=== PATIENT | male | born 1970 | race Caucasian/White ===

== ENCOUNTER 2023-05-16 12:56 | Outpatient (OUT) | payer BC, SELFPAY ==
--- NOTE | 2023-05-16 | XR_ITS ---
The [address] [address] Patient Name: RAMIRO BRUNO MRN: [id number] date: 1970 Sex: M Assigned Patient Location: [facility] Current Patient Location: [facility] Accession/Order Number: [id number] Exam Date: 05/16/2023 13:02 Report Date: 05/16/2023 13:41 At the request of: TERRY RANDLE Procedure: XR foot LT min 3V PROCEDURE: XR foot LT min 3V COMPARISON: None. HISTORY: LEFT FOOT PAIN FINDINGS: BONES:No acute fracture or dislocation. Mild plantar enthesopathic spurring of the calcaneus. SOFT TISSUES:Negative. No visible soft tissue swelling. EFFUSION:None visible. OTHER: Negative. XR/XR foot LT min 3V IMPRESSION: Mild plantar enthesopathic spurring of the calcaneus Electronically authenticated by: DALE LANCASTER Date: 05/16/2023 13:41
== END 2023-05-16 12:57 | disposition home or self-care (01) ==
LOC: RAD 13:00
PROVIDERS: Visit Provider Podiatrist Foot & Ankle Surgery
DX: M79.672 Pain in left foot (principal)
CPT/HCPCS: 73630

== ENCOUNTER 2023-05-22 15:31 | Outpatient (OUT) | payer BC, SELFPAY ==
--- NOTE | 2023-05-22 15:36 | MR_ITS ---
The [place] [id number] Patient Name: RAMIRO BRUNO MRN: [id number] date: 1970 Sex: M Assigned Patient Location: MRI Current Patient Location: MRI Accession/Order Number: [id number] Exam Date: 05/22/2023 15:48 Report Date: 05/22/2023 17:50 At the request of: TERRY RANDLE Procedure: MR ankle LT wo con MR ankle LT wo con, 05/22/2023 3:48 PM EST INDICATION: Achilles Tendonitis COMPARISON: There is no appropriate prior study for comparison. TECHNIQUE: Multiplanar and multisequential MR images of the left ankle were obtained without contrast . FINDINGS: Muscles and tendons: The flexor and extensor tendons and muscles are unremarkable. No abnormality of the peroneal tendons is noted. Achilles tendon is unremarkable. Bone: There is no bone marrow edema. No osseus lesion is noted. Sinus Tarsi: No abnormality of sinus Tarsi is noted. Plantar fascia: The plantar fascia is unremarkable. Ligaments: The deep and superficial portions of deltoid are unremarkable. The lateral ligaments are unremarkable. The visualized portion of Lisfranc ligament is unremarkable. There is normal intra-articular joint effusion. No soft tissue abnormality is noted. MR/MR ankle LT wo con IMPRESSION: No abnormality of the Achilles tendon. Unremarkable MRI of the left ankle. Electronically authenticated by: ION SUMMERS Date: 05/22/2023 17:50
== END 2023-05-22 15:32 | disposition home or self-care (01) ==
LOC: MRI 15:32
PROVIDERS: Visit Provider Podiatrist Foot & Ankle Surgery
DX: M76.62 Achilles tendinitis, left leg (principal)
CPT/HCPCS: 73721

== ENCOUNTER 2023-06-11 15:49 | Outpatient (RCR) | payer BC, SELFPAY | END 2023-07-15 08:00 | disposition home or self-care (01) | LOC: PT 15:49 | PROVIDERS: Visit Provider Podiatrist Foot & Ankle Surgery | DX: S86.012S Strain of left Achilles tendon, sequela (principal) | CPT/HCPCS: 20561; 97035; 97110; 97162 ==

== ENCOUNTER 2023-07-16 10:40 | Outpatient (RCR) | payer BC, SELFPAY | END 2023-07-20 16:55 | disposition home or self-care (01) | LOC: PT 10:40 | PROVIDERS: PCP Podiatrist Foot & Ankle Surgery; Visit Provider Podiatrist Foot & Ankle Surgery | DX: S86.012S Strain of left Achilles tendon, sequela (principal); M72.2 Plantar fascial fibromatosis | CPT/HCPCS: 20561; 97035 ==

== ENCOUNTER 2023-08-06 16:02 | Outpatient (OUT) | payer BC, SELFPAY ==
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
--- NOTE | 2023-08-06 16:42 | ECG_ITS ---
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
[2023-08-06 17:41] LABS: Anion Gap 9.9; BUN Creatinine Ratio 19.4; Calcium 9.3 mg/dL (8.5-10.1); Carbon Dioxide 31.6 mmol/L (21.0-32.0); Chloride 103 mmol/L (98-107); Estimated GFR (African America >60 (>=60); Estimated GFR (Non-African Ame >60 (>=60); Glucose 102 mg/dL (74-106); Potassium 3.5 mmol/L (3.5-5.1); Sodium 141 mmol/L (136-145)
== END 2023-08-06 16:03 | disposition home or self-care (01) ==
LOC: PST 16:03
PROVIDERS: PCP Family Medicine; Visit Provider Podiatrist Foot & Ankle Surgery
DX: Z01.810 Encounter for preprocedural cardiovascular examination (principal); Z01.812 Encounter for preprocedural laboratory examination; S86.012S Strain of left Achilles tendon, sequela; M77.32 Calcaneal spur, left foot
CPT/HCPCS: 36415; 80048; 93005

== ENCOUNTER 2023-08-20 08:58 | Day surgery (SDC) | payer BC, SELFPAY ==
[2023-08-06 16:24] VITALS: BP 134/82; PULSE 78; RESP 16; O2SAT 98; BMI 31.8
[2023-08-20] VITALS (12 sets, daily range): BP systolic 107–147; BP diastolic 49–97; PULSE 66–87; RESP 13–20; TEMP 36.3–36.5; O2SAT 90–99
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
[2023-08-20 09:11] LABS: Basophils Percent Auto 0.4 % (0.2-2.0); Eosinophils Absolute Auto 0.1 10^3/uL (0.0-0.7); Eosinophils Percent Auto 1.1 % (0.9-7.0); Hematocrit 39.8 % (42.0-54.0); Hemoglobin 13.4 g/dL (14.0-18.0); Immature Granulocytes Abs Auto 0.01 10^3/uL (0.00-0.03); Immature Granulocytes Pct Auto 0.2 % (0.0-0.5); Lymphocytes Absolute Auto 1.7 10^3/uL (1.2-3.8); Lymphocytes Percent Auto 30.7 % (20.5-60.0); Mean Corpuscular HGB Conc 33.7 g/dL (29.9-35.2); Mean Corpuscular Hemoglobin 31.4 pg (25.9-34.0); Mean Corpuscular Volume 93.2 fL (80.0-94.0); Mean Platelet Volume 9.1 fL (9.5-13.5); Monocytes Absolute Auto 0.5 10^3/uL (0.3-0.8); Monocytes Percent Auto 8.3 % (1.7-12.0); Neutrophils Absolute Auto 3.3 10^3/uL (1.4-6.5); Neutrophils Percent Auto 59.3 % (43.0-75.0); Platelet Count 273 10^3/uL (150-450); Red Blood Count 4.27 10^6/uL (4.70-6.10); Red Cell Distribution Width 13.2 % (11.0-15.0); White Blood Count 5.5 10^3/uL (4.0-11.0)
[2023-08-20] MEDS: CELECOXIB 200 MG CAPSULE PO (09:27)
[2023-08-20] MEDS: FAMOTIDINE 20 MG TABLET PO (09:27)
[2023-08-20] MEDS: PREGABALIN 75 MG CAPSULE PO (09:28)
[2023-08-20] MEDS: ACETAMINOPHEN 500 MG TABLET 1000 MG PO (09:28)
[2023-08-20 09:29] LABS: Glucometer 105 mg/dL (74-106)
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
[2023-08-20] MEDS: LACTATED RINGER'S SOLUTION 1,000 ML 50 ML IV ×2 (10:05→11:25)
[2023-08-20] MEDS: CEFAZOLIN SODIUM/DEXTROSE,ISO 2 GM/50 ML PIGGYBACK IV (10:27)
--- NOTE | 2023-08-20 10:42 | PC.NURSE ---
Lying on right side during procedure and tolerated well after being medicated with Versed by Dr. Faria; pt's present at all times due to pt's history of PTSD
--- NOTE | 2023-08-20 11:47 | XR_ITS ---
The [address] [address] Patient Name: RAMIRO BRUNO MRN: [id number] date: 1970 Sex: M Assigned Patient Location: [facility] Current Patient Location: Accession/Order Number: [id number] Exam Date: 08/20/2023 12:50 Report Date: 08/21/2023 10:52 At the request of: MARLEN THAO Procedure: XR ankle LT min 3V PROCEDURE: XR ankle LT min 3V HISTORY: Postop x-ray PACU COMPARISON: XR foot left 05/16/2023 FINDINGS: BONES:Postop resection of posterior superior margin of calcaneus for Achilles tendon repair. Small calcaneal plantar spur. SOFT TISSUES:Images were obtained to cast material which limits evaluation. EFFUSION:None visible. OTHER: Negative. XR/XR ankle LT min 3V IMPRESSION: 1. Postop Achilles tendon repair. Electronically authenticated by: CIARA CROOK Date: 08/21/2023 10:52
[2023-08-20 12:44] LABS: Glucometer 110 mg/dL (74-106)
[2023-08-20] MEDS: PROMETHAZINE HCL 25 MG TABLET PO (13:25)
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
== END 2023-08-20 14:20 | disposition home or self-care (01) ==
PROVIDERS: PCP Family Medicine; Visit Provider Podiatrist Foot & Ankle Surgery
PROC: (CPT 1464; principal; 2023-08-20 10:05)
DX: S86.012S Strain of left Achilles tendon, sequela (principal); M77.32 Calcaneal spur, left foot; M72.2 Plantar fascial fibromatosis; M76.62 Achilles tendinitis, left leg; M21.862 Other specified acquired deformities of left lower leg; M19.90 Unspecified osteoarthritis, unspecified site; I10 Essential (primary) hypertension; Z79.899 Other long term (current) drug therapy; Z90.49 Acquired absence of other specified parts of digestive tract
CPT/HCPCS: 27650; 28118; 29893; 36415; 64445; 73610; 82948; 85025; 88305; 88311; C1713; J1094; J1170; J2704

== ENCOUNTER 2023-08-23 13:05 | Outpatient (OUT) | payer BC, SELFPAY ==
--- NOTE | 2023-08-23 | XR_ITS ---
The [address] [address] Patient Name: RAMIRO BRUNO MRN: [id number] date: 1970 Sex: M Assigned Patient Location: RAD Current Patient Location: [facility] Accession/Order Number: [id number] Exam Date: 08/23/2023 13:23 Report Date: 08/23/2023 13:54 At the request of: NOLAN CORONA Procedure: XR ankle LT min 3V PROCEDURE: XR ankle LT min 3V COMPARISON: 08/20/2023 HISTORY: LEFT ANKLE PAIN FINDINGS: BONES:Contour deformity of the posterior calcaneus consistent with partial resection and Achilles tendon repair. SOFT TISSUES:Posterior soft tissue swelling and heterotopic ossification EFFUSION:None visible. OTHER: Negative. XR/XR ankle LT min 3V IMPRESSION: Stable postsurgical changes from Achilles tendon repair Electronically authenticated by: DALE LANCASTER Date: 08/23/2023 13:54
--- OUTSIDE RECORDS SUMMARY | 2023-08-23 13:09 | XMS_ITS | CCD ---
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 Name Role Phone MARKEL [phone] UNKNOWN Unavailable Unavailable NADERER, MARKEL~[id number] UNKNOWN Unavailable Unavailable NADERER, MARKEL~[phone] UNKNOWN Unavailable Unavailable NADERER, MARKEL~[phone] UNKNOWN Unavailable Unavailable Robles Becker Unavailable Unavailable Ky Campbell Unavailable Unavailable NADERER, MARKEL~[phone] UNKNOWN Unavailable RADHA Marie Attending Robin casanova UNKNOWN Primary Care Unavailable Yaneth Horton Unavailable Gianluca Gonzales Unavailable JALEESA, DR MARKEL Sharpe Primary Care Unavailable ELZA, DR CHUCK Geiger Admitting Unavailreymundo BERTRAND, DR CHUCK Geiger Attending Unavailreymundo GAONA, DR CURIEL Consulting Unavailable Mil Magana Consulting Unavailable JALEESA, DR MARKEL Sharpe Admitting Unavailable JALEESA, DR MARKEL Sharpe Attending Unavailable JALEESA, DR MARKEL Sharpe Primary Care Unavailable AMBREEN, DR CIARA Ragland Consulting Unavailable JALEESA, DR MARKEL Sharpe Consulting Unavailable FIONA Magaña Attending Provider Demetri Magaña Attending Unavailable Demetri Magaña Admitting Unavailable Allergies Allergy Classification Reported Allergen(s) Allergy Type Date of Onset Reaction(s) Facility (6 sources) Sulfamethoxazole / Trimethoprim Drug Allergy rash [place] Other Medications Current Medications Medication Drug Class(es) Dates Sig (Normalized) Sig (Original) acetaminophen 325 mg / oxyCODONE hydrochloride 5 mg oral tablet (2 sources) Opioid Agonist Start: 08-11-2021 take 1 tablet by mouth every four hours as needed for pain Percocet 5-325 MG 1 tablet as needed for pain Orally up to every 4 hrs for 5 days Jul, Active doxazosin 8 mg oral tablet (7 sources) alpha-Adrenergic Sony Start: 08-10-2021 take 8 mg by mouth once daily at bedtime Doxazosin Active 8 MG PO Daily at bedtime August 10, 2021 12:00am Doxazosin Mesyla te Active finasteride 5 mg oral tablet (1 source) 5-alpha Reductase Inhibitor Start: 08-10-2021 take 5 mg by mouth once daily at bedtime Finasteride Active 5 MG PO Daily at bedtime August 10, 2021 12:00am hydroCHLOROthiazide 12.5 mg / losartan potassium 50 mg oral tablet (1 source) Thiazide Diuretic, Angiotensin 2 Receptor Sony Start: 08-10-2021 take 1 tablet by mouth once daily in the morning Losartan-Hydroch lorothiazide Active 1 TAB PO Every morning August 10, 2021 12:00am lidocaine 0.05 mg/mg medicated patch (1 source) Antiarrhythmic, Amide Local Anesthetic Start: 08-10-2021 apply 1 dose topically once daily Lidocaine Active 3 PATCH TOPICAL Daily August 10, 2021 12:00am losartin (6 sources) losartin HTZ Active losartin Active meclizine hydrochloride 25 mg oral tablet (1 source) Antiemetic Start: 08-10-2021 take 25 mg by mouth once daily Meclizine Active 25 MG PO Daily August 10, 2021 12:00am morphine sulfate 15 mg oral tablet (1 source) Opioid Agonist Start: 08-10-2021 take 15 mg by mouth four times daily Morphine Active 15 MG PO Four times daily August 10, 2021 12:00am oxaprozin 600 mg oral tablet (2 sources) Nonsteroidal Anti-inflammatory Drug Start: 08-10-2021 take 600 mg by mouth twice daily Oxaprozin Active 600 MG PO Twice daily August 10, 2021 12:00am Start: 08-10-2021 End: 08-10-2021 Oxaprozin Discontinued MG TA BLET August 10, 2021 12:00am August 10, 2021 9:21am Simvastatin (6 sources) HMG-CoA Reductase Inhibitor Simvastatin Active sucralfate 1000 mg oral tablet (1 source) Aluminum Complex Start: 08-10-19 take 1 g by mouth four times daily Sucralfate Active 1 GM PO Four times daily August 10, 2021 12:00am SUMAtriptan 100 mg oral tablet (1 source) Serotonin-1b and Serotonin-1d Receptor Agonist Start: 08-10-19 take 100 mg by mouth once daily Sumatriptan Succinate Active 100 MG PO Daily August 10, 2021 12:00am tadalafil 10 mg oral tablet (1 source) Phosphodiesterase 5 Inhibitor Start: 08-10-19 take 10 mg by mouth once daily Tadalafil Active 10 MG PO Daily August 10, 2021 12:00am tiZANidine 4 mg oral tablet (5 sources) Central alpha-2 Adrenergic Agonist Start: 08-10-19 take 4 mg by mouth once daily at bedtime Tizanidine Active 4 MG PO Daily at bedtime August 10, 2021 12:00am take 1 tablet by mouth every eig ht hours Zanaflex 4 MG 1 tablet as needed Orally Three times a day Active valACYclovir 1000 mg oral tablet (1 source) Herpesvirus Nucleoside Analog DNA Polymerase Inhibitor, Herpes Simplex Virus Nucleoside Analog DNA Polymerase Inhibitor, Herpes Zoster Virus Nucleoside Analog DNA Polymerase Inhibitor Start: 08-10-2021 take 1000 mg by mouth once daily Valacyclovir Active 1000 MG PO Daily August 10, 2021 12:00am Completed/Discontinued Medications Medication Drug Class(es) Dates Sig (Normalized) Sig (Original) cephalexin 500 mg oral capsule (2 sources) Cephalosporin Antibacterial Start: 08-11-2021 take 1 capsule by mouth every eight hours Cephalexin 500 MG 1 capsule Orally every 8 hrs for 2 days Jul, Not-Taking meloxicam (6 sources) Nonsteroidal Anti-inflammatory Drug Meloxicam Not-Taking Meloxicam Active Problems Active Problems Problem Classification Problem Date Documented Da te Episodic/Chronic Other connective tissue disease (1 source) [...] SCREEN MALIG NEOPLASM PROSTATE] Onset: 07-26-2022 Episodic Past or Other Problems Problem Classification Problem Date Documented Date Episodic/Chronic Immunizations and screening for infectious disease (1 source) Contact with and (suspected) exposure to other viral communicable diseases; Translations: [Contact with and (suspected) exposure to other viral communicable diseases Z20.828] Onset: 04-13-2021 Resolved: 04-13-2021 Episodic Other aftercare (1 source) Other correction (current) drug therapy; Translations: [OTH HALF-WAY CURRENT DRUG THERAPY] Onset: 08-02-2021 Episodic Other [...] 2022 Testosterone [Mass/Vol] 685 ng/dL Normal 264-916 [facility] Comment on above: Result Comment: Adul t male reference interval is based on a population of healthy nonobese males (BMI <30) between 19 and 39 years old. nayeli Mix.al. JCEM 2017,102;3950-6408. PMID: [id number]. Performed By: #### L IPID, BMP, LIVER, TSH #### [facility] [address] [place] [address] Dr. Jinny Whitfield CBC AUTO DIFFon 07-22-2022 BASO # 0.0 103/ul Normal 0.0-0.1 [facility] Comment on above: Performed By: #### C BC #### [facility] [address] [place] [address] Dr. Jinny Whitfield Basophils/100 WBC (Bld) 0.4 % Normal 0.2-2.0 [facility] Comment on above: Performed By: #### C BC #### [facility] [address] [place] [address] Dr. Jinny Whitfield EO # 0.0 103/ul Normal 0.0-0.7 [facility] Comment on above: Performed By: #### C BC #### [facility] [address] [place] [address] Dr. Jinny Whitfield Eosinophils/100 WBC (Bld) 0.5 % Critically low 0.9-7.0 [facility] Comment on above: Performed By: #### C BC #### [facility] [address] [place] [address] Dr. Jinny Whitfield Erythrocyte distribution width (RBC) [Ratio] 12.8 % Normal 11.0-15.0 [facility] Comment on above: Performed By: #### C BC #### [facility] [address] [place] [address] Dr. Jinny Whitfield Hematocrit (Bld) [Volume fraction] 36.5 % Critically low 42.0-54.0 [facility] Comment on above: Performed By: #### C BC #### [facility] [address] [place] [address] Dr. Jinny Whitfield Hemoglobin (Bld) [Mass/Vol] 13.3 g/dL Critically low 14.0-18.0 [facility] Comment on above: Performed By: #### C BC #### [facility] [address] [place] [address] Dr. Jinny Whitfield IG # 0.03 10e3/ul Normal 0.00-0.03 [facility] Comment on above: Performed By: #### C BC #### [facility] [address] [place] [address] Dr. Jinny Whitfield IG % 0.5 % Normal 0.0-0.5 [facility] Comment on above: Performed By: #### C BC #### [facility] [address] [place] [address] Dr. Jinny Whitfield LYMPH # 1.3 103/ul Normal 1.2-3.8 [facility] Comment on above: Performed By: #### C BC #### [facility] [address] [place] [address] Dr. Jinny Whitfield Lymphocytes/100 WBC (Bld) 22.3 % Normal 20.5-60.0 [facility] Comment on above: Performed By: #### C BC #### [facility] [address] [place] [address] Dr. Jinny Whitfield MANUAL DIFF REQ NO Normal [facility] Comment on above: Performed By: #### C BC #### [facility] [address] [place] [address] Dr. Jinny Whitfield MCH (RBC) [Entitic mass] 30.7 pg Normal 25.9-34.0 [facility] Comment on above: Performed By: #### C BC #### [facility] [address] [place] [address] Dr. Jinny Whitfield MCHC (RBC) [Mass/Vol] 36.4 g/dL Critically high 29.9-35.2 [facility] Comment on above: Performed By: #### C BC #### [facility] [address] [place] [address] Dr. Jinny Whitfield MCV (RBC) [Entitic vol] 84.3 fL Normal 80.0-94.0 [facility] Comment on above: Performed By: #### C BC #### [facility] [address] [place] [address] Dr. Jinny Whitfield MONO # 0.3 103/ul Normal 0.3-0.8 [facility] Comment on above: Performed By: #### C BC #### [facility] [address] [address] [address] Jinny Whitfield Monocytes/100 WBC (Bld) 5.9 % Normal 1.7-12.0 [facility] Comment on above: Performed By: #### C BC #### [facility] [address] [address] [address] Jinny Whitfield NEUT # 3.9 103/ul Normal 1.4-6.5 [facility] Comment on above: Performed By: #### C BC #### [facility] [address] [place] [address] Dr. Jinny Whitfield Neutrophils/100 WBC (Bld) 70.4 % Normal 43.0-75.0 [facility] Comment on above: Performed By: #### C BC #### [facility] [address] [place] [address] Dr. Jinny Whitfield Platelet mean volume (Bld) [Entitic vol] 8.8 fL Critically low 9.5-13.5 [facility] Comment on above: Performed By: #### C BC #### [facility] [address] [place] [address] Dr. Jinny Whitfield PLT 317 103/ul Normal 150-450 [facility] Comment on above: Performed By: #### C BC #### [facility] [address] [place] [address] Dr. Jinny Whitfield RBC 4.33 106/ul Critically low 4.70-6.10 [facility] Comment on above: Performed By: #### C BC #### [facility] [address] [place] [address] Dr. Jinny Whitfield WBC 5.6 103/ul Normal 4.0-11.0 [facility] Comment on above: Performed By: #### C BC #### [facility] [address] [place] [address] Dr. Jinny Whitfield GLYCOHEMOGLOBIN A1Con 2022 ADA RECOMMENDATION SEE BELOW Normal [facility] Comment on above: Result Comment: ADA RECOMMENDED LIMIT 4.0 - 6.0 ADA THERAPEUTIC TARGET < 7.0 ACTION SUGGESTED > 7.0 Performed By: #### A 1C #### [facility] [address] [address] [address] Jinny Whitfield Glucose [Mass/Vol] 117 mg/dL Normal [facility] Comment on above: Performed By: #### A 1C #### [facility] [address] [address] [address] Jinny Whitfield HbA1c (Bld) [Mass fraction] 5.7 % Normal 4.5-6.2 [facility] Comment on above: Performed By: #### A 1C #### [facility] [address] [place] [address] Dr. Jinny Whitfield LIPID PROFILEon 07-22-2022 CHOL-HDL RATIO NORM SEE BELOW Normal [facility] Comment on above: Result Comment: 3.3 - 4.4 LOW RISK 4.4 - 7.1 AVERAGE RISK 7.1 - 11.0 MODERATE RISK >11.0 HIGH RISK Performed By: #### L IPID, BMP, LIVER, TSH #### [facility] [address] [place] [address] Dr. Jinny Whitfield Cholesterol [Mass/Vol] 168 mg/dL Normal <=200 [facility] Comment on above: Performed By: #### L IPID, BMP, LIVER, TSH #### [facility] [address] [place] [address] Dr. iJnny Whitfield Cholesterol in HDL [Mass/Vol] 46 mg/dL Normal 40-60 [facility] Comment on above: Performed By: #### L IPID, BMP, LIVER, TSH #### [facility] [address] [address] [address] Jinny Whitfield Cholesterol in LDL [Mass/Vol] 102.8 mg/dL Normal [facility] Comment on above: Performed By: #### L IPID, BMP, LIVER, TSH #### [facility] [address] [address] [address] Jinny Whitfield Cholesterol.total/ Cholesterol in HDL [Mass ratio] 3.7 {ratio} Normal [facility] Comment on above: Performed By: #### L IPID, BMP, LIVER, TSH #### [facility] [address] [address] [address] Jinny Whitfield HDL NORMAL > or = 60 mg/dl - LO W CARDIOVASCULAR RISK <40 mg/dl - HIGH CARDIOVASCULAR RISK Normal [facility] Comment on above: Performed By: #### L IPID, BMP, LIVER, TSH #### [facility] [address] [address] [address] Jinny Whitfield LDL CALC NORMAL SEE BELOW Normal [facility] Comment on above: Result Comment: <100 mg/dl OPTIMAL 100 - 129 mg/dl NEAR OR ABOVE OPTIMAL 130 - 159 mg/dl BORDERLINE HIGH 160 - 189 mg/dl HIGH >190 mg/dl VERY HIGH Performed By: #### L IPID, BMP, LIVER, TSH #### [facility] [address] [address] [address] Jinny Whitfield Triglyceride [Mass/Vol] 96 mg/dL Normal <=150 [facility] Comment on above: Performed By: #### L IPID, BMP, LIVER, TSH #### [facility] [address] [address] [address] Jinny Whitfield VLDL CALC 19.2 mg/dL Normal [facility] Comment on above: Performed By: #### L IPID, BMP, LIVER, TSH #### [facility] [address] [address] [address] Jinny Whitfield LIVER PROFILEon 07-22-2022 Albumin [Mass/Vol] 4.2 g/dL Normal 3.4-5.0 [facility] Comment on above: Performed By: #### L IPID, BMP, LIVER, TSH #### [facility] [address] [address] [address] Jinny Whitfield Albumin/Globulin [Mass ratio] 1.2 {ratio} Normal [facility] Comment on above: Performed By: #### L IPID, BMP, LIVER, TSH #### [facility] [address] [address] [address] Jinny Whitfield ALP [Catalytic activity/Vol] 83 U/L Normal 46-116 [facility] Comment on above: Performed By: #### L IPID, BMP, LIVER, TSH #### [facility] [address] [address] [address] Jinny Whitfield ALT [Catalytic activity/Vol] 28 U/L Normal 16-63 [facility] Comment on above: Performed By: #### L IPID, BMP, LIVER, TSH #### [facility] [address] [address] [address] Jinny Whitfield AST [Catalytic activity/Vol] 24 U/L Normal 15-37 [facility] Comment on above: Performed By: #### L IPID, BMP, LIVER, TSH #### [facility] [address] [address] [address] Jinny Whitfield BILI, CONJUGATED 0.1 mg/dL Normal 0.0-0.[address] [facility] Comment on above: Performed By: #### L IPID, BMP, LIVER, TSH #### [facility] [address] [place] [address] Dr. Jinny Whitfield Bilirubin [Mass/Vol] 0.4 mg/dL Normal 0.2-1.0 [facility] Comment on above: Performed By: #### L IPID, BMP, LIVER, TSH #### [facility] [address] [address] [address] Jinny Whitfield Globulin (S) [Mass/Vol] 3.4 g/dL Normal [facility] Comment on above: Performed By: #### L IPID, BMP, LIVER, TSH #### [facility] [address] [address] [address] Jinny Whitfield Protein [Mass/Vol] 7.6 g/dL Normal 6.4-8.2 [facility] Comment on above: Performed By: #### L IPID, BMP, LIVER, TSH #### [facility] [address] [place] [address] Dr. Jinny Whitfield PROF CHEM 8 (BAS METB)on Anion gap [Moles/Vol] 11.7 mmol/L Normal [facility] Comment on above: Performed By: #### L IPID, BMP, LIVER, TSH #### [facility] [address] [address] [address] Jinny Whitfield Calcium [Mass/Vol] 8.9 mg/dL Normal 8.5-10.1 [facility] Comment on above: Performed By: #### L IPID, BMP, LIVER, TSH #### [facility] [address] [address] [address] Jinny Whitfield Chloride [Moles/Vol] 102 mmol/L Normal 98-107 [facility] Comment on above: Performed By: #### L IPID, BMP, LIVER, TSH #### [facility] [address] [address] [address] Jinny Whitfield CO2 [Moles/Vol] 30.2 mmol/L Normal 21.0-32.0 [facility] Comment on above: Performed By: #### L IPID, BMP, LIVER, TSH #### [facility] [address] [place] [address] Dr. Jinny Whitfield Creatinine [Mass/Vol] 0.86 mg/dL Normal 0.70-1.30 [facility] Comment on above: Performed By: #### L IPID, BMP, LIVER, TSH #### [facility] [address] [place] [address] Dr. Jinny Whitfield EGFR-AF SENEGALESE >60 Normal >=60 [facility] Comment on above: Performed By: #### L IPID, BMP, LIVER, TSH #### [facility] [address] [place] [address] Dr. Jinny Whitfield EGFR-NON AF SENEGALESE >60 Normal >=60 [facility] Comment on above: Performed By: #### L IPID, BMP, LIVER, TSH #### [facility] [address] [address] [address] Jinny Whitfield Glucose [Mass/Vol] 96 mg/dL Normal 74-106 [facility] Comment on above: Performed By: #### L IPID, BMP, LIVER, TSH #### [facility] [address] [address] [address] Jinny Whitfield Potassium [Moles/Vol] 3.9 mmol/L Normal 3.5-5.1 [facility] Comment on above: Performed By: #### L IPID, BMP, LIVER, TSH #### [facility] [address] [address] [address] Jinny Whitfield Sodium [Moles/Vol] 140 mmol/L Normal 136-145 [facility] Comment on above: Performed By: #### L IPID, BMP, LIVER, TSH #### [facility] [address] [address] [address] Jinny Whitfield Urea nitrogen [Mass/Vol] 18.0 mg/dL Normal 7.0-18.0 [facility] Comment on above: Performed By: #### L IPID, BMP, LIVER, TSH #### [facility] [address] [address] [address] Jinny Whitfield Urea nitrogen/Creatinin e [Mass ratio] 20.9 mg/mg Normal [facility] Comment on above: Performed By: #### L IPID, BMP, LIVER, TSH #### [facility] [address] [address] [address] Jinny Whitfield TSHon 07-22-2022 TSH 0.701 uIU/mL Normal 0.358-3.740 [facility] Comment on above: Performed By: #### L IPID, BMP, LIVER, TSH #### [facility] [address] [place] [address] Dr. Jinny Whitfield XR HUMERUS LT MIN 2Von 07-31 XR [...] MIL MAGANA Date: 2021-07-31 17:51 Normal [facility] COVID Quick Testingon 2020 Result Negative [place] Other Established Visit (Neurosurg kiran)on 08-09-2018 Established Visit (Neurosurgery) Chief Complaint Patient is being seen for a follow-up Neurosurgical visit. 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 Battery changed in November 2016 from [employer] to [employer], with initially some relief, but no longer. [...] Vital Signs Recorded: 09Aug2018 01:42PM Heart Rate79 Alythwoaldh57 Waqphetx959 Fgicstzvj75 Yauvdl204 lb BMI Kssmmatlhi34.59 BSA Calculated2.13 Physical Exam incisions well healed, [...] Patient Discussion/Summary 1) I discussed with Mr. William and his other treatment options including trial of a new lead, repositioning of the generator, reprogramming, however, Mr. William is not interested in any of these [...] Aug 09 2018 3:24PM EST (Author) Normal [facility] Coding Summary.on 12-20-2017 Coding Summary. 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 Hewas subsequently [facility] where he saw Dr. Cordova replaced the stimulator generator with a [employer] device. He notes thatthat switch worsened his symptoms as a result of the stimulator being lesseffective than it once was. He was subsequently referred to Dr. Aldrich todiscuss either ablative techniques versus other treatments and [...] and followup as needed.Robles Becker M.D.lkrDictated: 12/14/2017 #[id number]: 12/19/2017 #[id number]: Santos Campbell M.D.Robles Becker M.D. [facility] Comment on above: Result Comment: Elec tronically Signed By: Rosita CAPUTO, Robles Holliday\.br\Date and Time Signed: 12/20/17 16:22 EDT Coding Summary.on 05-22-2017 Coding Summary. CODING DATE: 017 FINAL [facility] STATUS: Home (Routine DC) PAYOR: Commercial Insurance [...] Kelsea Newton Date Saved: 05/22/2017 12:25 pm Normal [facility] [place] Mamm Diag w/CAD if perf [...] very important to your health. The current [employer] and [employer] [...] BI-RADS Category 1-Negative Recommendation: Normal interval follow-up [facility] US Breast Unilateral Rt Comp leteon 05-21-2017 INR Coag RelTime (Bld) Exam Date/Time:05/21/2017 14:19 ESTReason for Exam:Breast painReportPLEASE REFER TO THE MAMMOGRAM REPORT. FINAL REPORT Dictated: 05/21/2017 6:26 pm Ky Heath M.D. Signed (Electronic Signature): 05/21/2017 6:26 pm Signed by: Ky Heath M.D. Transcribed by: RAUL Technologist: DIONISIO [facility] Vital Signs Date Time Vital Sign Value Performing Clinician Facility 08-22-2021 14:30-0500 Body height 179.07 cm Gianluca Olexa Other [place] Other 08-22-2021 14:30-0500 Body mass index (BMI) [Ratio] 31.68 kg/m2 Gianluca Olexa Other [place] Other 08-22-2021 14:30-0500 Body weight 101.61 kg Gianluca Olexa Other [place] Other 08-09-2021 10:45-0500 Body height 179.07 cm Gianluca Olexa Other [facility] Other 08-09-2021 10:45-0500 Body mass index (BMI) [Ratio] 31.54 kg/m2 Gianluca Olexa Other [facility] Other 08-09-2021 10:45-0500 Body weight 101.15 kg Gianluca Olexa Other [facility] Other 08-02-2021 10:30-0500 Body height 179.07 cm Gianluca Olexa Other [facility] Other 08-02-2021 10:30-0500 Body mass index (BMI) [Ratio] 30.98 kg/m2 Gianluca Salazarxa Other [facility] Other 08-02-2021 10:30-0500 Body weight 99.34 kg Gianluca Olexa Other [facility] 05-01-2021 13:55-0400 Body height 179.07 cm Yaneth Sol Other [facility] Other 05-01-2021 13:55-0400 Body mass index (BMI) [Ratio] 30.98 kg/m2 Yaneth Sol Other [facility] Other 05-01-2021 13:55-0400 Body temperature 98.6 [degF] Yaneth Sol Other [facility] Other 05-01-2021 13:55-0400 Body weight 99.34 kg Yaneth Sol Other [facility] Other 05-01-2021 13:55-0400 Diastolic blood pressure 90 mm[Hg] Yaneth Sol Other [facility] Other 05-01-2021 13:55-0400 Respiratory rate 18 /min Yaneth Sol Other [facility] Other 05-01-2021 13:55-0400 SaO2% (BldA) [Mass fraction] 98 % Yaneth Sol Other [facility] 05-01-2021 13:55-0400 Systolic blood pressure 118 mm[Hg] Yaneth Sol Other [facility] 04-13-2021 11:15-0400 Body height 179.07 cm Yaneth Horton Other [facility] 04-13-2021 11:15-0400 Body mass index (BMI) [Ratio] 30.41 kg/m2 Yaneth Horton Other [facility] 04-13-2021 11:15-0400 Body temperature 99.3 [degF] Yaneth Horton Other [facility] Other 04-13-2021 11:15-0400 Body weight 97.52 kg Yaneth Horton Other [facility] Other 04-13-2021 11:15-0400 Respiratory rate 18 /min Yaneth Horton Other [facility] Other 04-13-2021 11:15-0400 SaO2% (BldA) [Mass fraction] 97 % Yaneth Horton Other [facility] Other Encounters Encounter Date Encounter Type Care Provider Facility Start: 08-20-2023 End: 08-20-2023 ambulatory Demetri Magaña Facility:[facility] Start: 08-20-2023 End: 08-20-2023 ambulatory DPM Demetri Magaña Work Phone: [facility] Work Phone: Start: 08-20-2023 End: 08-20-2023 Departed Referred DPM Demetri Magaña Work Phone: [facility] Start: 07-26-2022 Encounter for genera l adult medical examination without abnormal findings DR MARKEL LAZCANO [facility] Start: 07-22-2022 End: 07-23-[address] MARKEL LAZCANO Facility:[facility] Start: 07-22-2022 End: 07-23-2022 Encounter for general adult medical examination without abnormal findings DR MARKEL LAZCANO Facility:[facility] Start: 08-22-2021 End: 08-22-2021 ambulatory Gianluca Olexa Other [facility] Start: 08-22-2021 Postop follow up vis it related to original px Gianluca Olexa [facility] Start: 08-11-2021 End: 08-11-2021 ambulatory Gianluca Olexa Other [facility] Start: 08-11-2021 Telephone encounter Gianluca Olexa [facility] Start: 08-09-2021 End: 08-09-2021 ambulatory Gianluca Olexa Other [facility] Start: 08-09-2021 Encounter for other preprocedural examination Gianluca Olexa [facility] Start: 08-09-2021 Office outpatient vi sit 25 minutes Gianluca Olexa [facility] Start: 08-02-2021 End: 08-02-2021 ambulatory Gianluca Olexa Other [facility] Start: 08-02-2021 Office outpatient ne w 45 minutes Gianluca Olexa [facility] Start: 07-31-2021 End: 07-31-[address] MARKEL LAZCANO Facility: Start: 05-01-2021 Office outpatient vi sit 15 minutes Yaneth Horton [facility] Start: 04-13-2021 (URG) Urgent Care Visit Yaneth holliday [facility] Start: 08-09-2018 Patient encounter procedure RADHA FERRO Facility:[facility] Start: 08-09-2018 Encounter for other preprocedural examination RADHA FERRO [facility] Start: 12-14-2017 End: 12-15-2017 Ambulatory Robles Becker Facility:[facility] Start: 05-21-2017 End: 05-22-2017 Ambulatory [id number] EDUARDO LAZCANO Facility:[facility] Procedures Date Procedure Procedure Detail Performing Clinician Start: 07-22-[address] MARKEL OLIVERA Comment on above: Performed By: #### P [facility] #### [facility] [address] [address] [address] Jinny Whitfield Immunizations Immunization Date Immunization Notes Care Provider Elroy [email or web address] 06-21-2021 COVID-19 mRNA, Comirnaty (Pfizer) DPM Demetri Magaña Work Phone: [facility] 05-01-2021 Toradol per 15 mg Yaneth Dym ond Other [facility] Other 09-28-2020 COVID-19 mRNA, Comirnaty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
== END 2023-08-23 13:06 | disposition home or self-care (01) ==
LOC: RAD 13:06
PROVIDERS: PCP Family Medicine; Visit Provider Physician Assistant
DX: S86.012S Strain of left Achilles tendon, sequela (principal); Z98.890 Other specified postprocedural states
CPT/HCPCS: 73610

== ENCOUNTER 2023-09-29 10:10 | Outpatient (OUT) | payer BC, SELFPAY ==
--- OUTSIDE RECORDS SUMMARY | 2023-09-29 10:14 | XMS_ITS | CCD ---
Author Name Unknown Address [address] [place] [address] Organization [facility] Care Team Providers Care Table And Desk Finisher Name Role Phone MARKEL [phone] UNKNOWN Unavailable Unavailable NADERER, MARKEL~[phone] UNKNOWN Unavailable Unavailable NADERER, MAKREL~[phone] UNKNOWN Unavailable Unavailable NADERER, MARKEL~[phone] UNKNOWN Unavailable Unavailable Robles Becker Unavailable Unavailable Ky Campbell Unavailable Unavailable NADERER, MARKEL~[phone] UNKNOWN Unavailable RADHA Marie Attending Robin casanova [...] [employer] Unavailable FIONA Magaña Attending Provider [phone] Demetri Magaña Attending Unavailable Demetri Magaña Admitting Unavailable MARKEL LAZCANO Attending Unavailable Allergies Allergy Classification Reported Allergen(s) Allergy Type Date of Onset Reaction(s) Facility (6 sources) Sulfamethoxazole / Trimethoprim Drug Allergy rash [facility] Business [employer] Other (1 source) Sulfamethoxazole Drug Allergy 2 [facility] Repository (1 source) Trimethoprim Drug Allergy 2 [facility] Medications Current Medications Medication Drug Class(es) Dates [...] 04-13-2021 Episodic Other aftercare (1 source) 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; Translations: [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 DRUG THERAPY] Onset: 08-02-2021 Episodic Other [...] Test Name Value Interpretation Reference Range Facility [facility] 08-20-2023 L Specimen: [id number] Received: 08/21/23 Status: PALLAVI Zaman Num: [id number] Spec Type: Surgical Subm Dr: Demetri Magaña DPM, MS Tissues: A Bone Fragments - Other than Path Fracture (LT CALCANEAL SPUR) Procedures: HE, Gross/Micro L3, Decalcification Age/ Patient Sex Location Account Attending Physician Carlton Bruno Dell 52/M LABELL [id number] Demetri Magaña DPM, MS SPEC NUM: [id number] RECD: 08/21/23 STATUS: PALLAVI ZAMAN NUM: [id number] EDMAR: 08/20/[address]: Demetri Magaña DPM, MS ENTERED: 08/21/[address] [facility] [address]: Ene Greenberg SPEC TYPE: Surgical DEPT: KAR HOLLOWAY ORDERED: HE, Gross/Micro L3, Decalcification ORDERED: HE, Gross/Micro L3, Decalcification Pathological Diagnosis Left foot calcaneal bone, excision -Large irregular wedge segment of calcaneal bone showing mild changes of degenerative osteoarthritis per chronic compression or stretching effect of the calcaneal spur or exostosis, otherwise without any other significant or specific histopathological changes observed Clinical Information Strain of left Achilles tendon, calcaneal spur Gross Description Received in formalin labeled with the patient's name, date of and left calcaneal spur is a 4.0 x 2.7 x 2.2 cm aggregate of soriano-white bone and yellow-harris rubbery tissue. The bone fragments have smooth to shaggy, soriano-harris articular surfaces. The cut surface of the bone is yellow-soriano, trabecular. Shrinking Machine Operator are submitted following decalcification in one cassette labeled A1. CPT Codes 38620, 94215 Specimen: [id number] Received: 08/21/23 Status: PALLAVI Zaman Num: [id number] Spec Type: Surgical Subm Dr: Demetri Magaña,DPM, MS Tissues: A Bone Fragments - Other than Path Fracture (LT CALCANEAL SPUR) Procedures: HE, Gross/Micro L3, Decalcification Patient: Carlton Bruno [id number] (Continued) Signed (signature on file) Elle Whitfield MD 08/24/23 1611 [facility] TESTOSTERONE, TOTALon 2022 Testosterone [Mass/Vol] 685 ng/dL Normal 264-916 [facility] Comment on above: Result Comment: Adul t male reference interval is based on a population of healthy nonobese males (BMI <30) between 19 and 39 years old. Dominguez et.al. JCEM 2017,102;0396-4799. PMID: [id number]. Performed By: #### L IPID, BMP, LIVER, TSH #### [facility] [address] [place] [address] Dr. Jinny Whitfield CBC AUTO DIFFon 07-22-2022 BASO # 0.0 103/ul Normal 0.0-0.1 [facility] Comment on above: Performed By: #### C BC #### [facility] [address] [place] [address] Dr. Jinny Whitfield Basophils/100 WBC (Bld) 0.4 % Normal 0.2-2.0 [facility] Comment on above: Performed By: #### C BC #### [facility] [address] [place] [address] Dr. Jinny Whitfield EO # 0.0 103/ul Normal 0.0-0.7 [facility] Comment on above: Performed By: #### C BC #### [facility] [address] [place] [address] Dr. Jinny Whitfield Eosinophils/100 WBC (Bld) 0.5 % Critically low 0.9-7.0 [facility] Comment on above: Performed By: #### C BC #### [facility] [address] [place] [address] Dr. Jinny Whitfield Erythrocyte distribution width (RBC) [Ratio] 12.8 % Normal 11.0-15.0 [facility] Comment on above: Performed By: #### C BC #### [facility] [address] [place] [address] Dr. Jinny Whitfield Hematocrit (Bld) [Volume fraction] 36.5 % Critically low 42.0-54.0 [facility] Comment on above: Performed By: #### C BC #### [facility] [address] [place] [address] Dr. Jinny Whitfield Hemoglobin (Bld) [Mass/Vol] 13.3 g/dL Critically low 14.0-18.0 [facility] Comment on above: Performed By: #### C BC #### [facility] [address] [place] [address] Dr. Jinny Whitfield IG # 0.03 10e3/ul Normal 0.00-0.03 [facility] Comment on above: Performed By: #### C BC #### [facility] [address] [place] [address] Dr. Jinny Whitfield IG % 0.5 % Normal 0.0-0.5 [facility] Comment on above: Performed By: #### C BC #### [facility] [address] [place] [address] Dr. Jinny Whitfield LYMPH # 1.3 103/ul Normal 1.2-3.8 [facility] Comment on above: Performed By: #### C BC #### [facility] [address] [place] [address] Dr. Jinny Whitfield Lymphocytes/100 WBC (Bld) 22.3 % Normal 20.5-60.0 [facility] Comment on above: Performed By: #### C BC #### [facility] [address] [place] [address] Dr. Jinny Whitfield MANUAL DIFF REQ NO Normal [facility] Comment on above: Performed By: #### C BC #### [facility] [address] [place] [address] Dr. Jinny Whitfield MCH (RBC) [Entitic mass] 30.7 pg Normal 25.9-34.0 [facility] Comment on above: Performed By: #### C BC #### [facility] [address] [place] [address] Dr. Jinny Whitfield MCHC (RBC) [Mass/Vol] 36.4 g/dL Critically high 29.9-35.2 [facility] Comment on above: Performed By: #### C BC #### [facility] [address] [place] [address] Dr. Jinny Whitfield MCV (RBC) [Entitic vol] 84.3 fL Normal 80.0-94.0 [facility] Comment on above: Performed By: #### C BC #### [facility] [address] [place] [address] Dr. Jinny Whitfield MONO # 0.3 103/ul Normal 0.3-0.8 [facility] Comment on above: Performed By: #### C BC #### [facility] [address] [place] [address] Dr. Jinny Whitfield Monocytes/100 WBC (Bld) 5.9 % Normal 1.7-12.0 [facility] Comment on above: Performed By: #### C BC #### [facility] [address] [place] [address] Dr. Jinny Whitfield NEUT # 3.9 103/ul Normal 1.4-6.5 [facility] Comment on above: Performed By: #### C BC #### [facility] [address] [address] [address] Jinny Whitfield Neutrophils/100 WBC (Bld) 70.4 % Normal 43.0-75.0 [facility] Comment on above: Performed By: #### C BC #### [facility] [address] [place] [address] Dr. Jinny Whitfield Platelet mean volume (Bld) [Entitic vol] 8.8 fL Critically low 9.5-13.5 [facility] Comment on above: Performed By: #### C BC #### [facility] [address] [place] [address] Dr. Jinny Whitfield PLT 317 103/ul Normal 150-450 [facility] Comment on above: Performed By: #### C BC #### [facility] [address] [place] [address] Dr. Jinny Whitfield RBC 4.33 106/ul Critically low 4.70-6.10 [facility] Comment on above: Performed By: #### C BC #### [facility] [address] [place] [address] Dr. Jinny Whitfield WBC 5.6 103/ul Normal 4.0-11.0 [facility] Comment on above: Performed By: #### C BC #### [facility] [address] [place] [address] Dr. Jinny Whitfield GLYCOHEMOGLOBIN A1Con 2022 ADA RECOMMENDATION SEE BELOW Normal [facility] Comment on above: Result Comment: ADA RECOMMENDED LIMIT 4.0 - 6.0 ADA THERAPEUTIC TARGET < 7.0 ACTION SUGGESTED > 7.0 Performed By: #### A 1C #### [facility] [address] [place] [address] Dr. Jinny Whitfield Glucose [Mass/Vol] 117 mg/dL Normal [facility] Comment on above: Performed By: #### A 1C #### [facility] [address] [address] [address] Jinny Whitfield HbA1c (Bld) [Mass fraction] 5.7 % Normal 4.5-6.2 [facility] Comment on above: Performed By: #### A 1C #### [facility] [address] [address] [address] Jinny Whitfield LIPID PROFILEon 07-22-2022 CHOL-HDL RATIO NORM SEE BELOW Normal [facility] Comment on above: Result Comment: 3.3 - 4.4 LOW RISK 4.4 - 7.1 AVERAGE RISK 7.1 - 11.0 MODERATE RISK >11.0 HIGH RISK Performed By: #### L IPID, BMP, LIVER, TSH #### [facility] [address] [place] [address] Dr. Jinny Whitfield Cholesterol [Mass/Vol] 168 mg/dL Normal <=200 [facility] Comment on above: Performed By: #### L IPID, BMP, LIVER, TSH #### [facility] [address] [address] [address] Jinny Whitfield Cholesterol in HDL [Mass/Vol] 46 mg/dL Normal 40-60 [facility] Comment on above: Performed By: #### L IPID, BMP, LIVER, TSH #### [facility] [address] [address] [address] Jinny Whitfield Cholesterol in LDL [Mass/Vol] 102.8 mg/dL Normal [facility] Comment on above: Performed By: #### L IPID, BMP, LIVER, TSH #### [facility] [address] [address] [address] Jinny Whitfield Cholesterol.total/ Cholesterol in HDL [Mass ratio] 3.7 {ratio} Normal [facility] Comment on above: Performed By: #### L IPID, BMP, LIVER, TSH #### [facility] [address] [address] [address] Jinny Whitfield HDL NORMAL > or = 60 mg/dl - LO W CARDIOVASCULAR RISK <40 mg/dl - HIGH CARDIOVASCULAR RISK Normal [facility] Comment on above: Performed By: #### L IPID, BMP, LIVER, TSH #### [facility] [address] [address] [address] Jinny Whitfield LDL CALC NORMAL SEE BELOW Normal [facility] Comment on above: Result Comment: <100 mg/dl OPTIMAL 100 - 129 mg/dl NEAR OR ABOVE OPTIMAL 130 - 159 mg/dl BORDERLINE HIGH 160 - 189 mg/dl HIGH >190 mg/dl VERY HIGH Performed By: #### L IPID, BMP, LIVER, TSH #### [facility] [address] [address] [address] Jinny Whitfield Triglyceride [Mass/Vol] 96 mg/dL Normal <=150 [facility] Comment on above: Performed By: #### L IPID, BMP, LIVER, TSH #### [facility] [address] [address] [address] Jinny Whitfield VLDL CALC 19.2 mg/dL Normal [facility] Comment on above: Performed By: #### L IPID, BMP, LIVER, TSH #### [facility] [address] [address] [address] Jinny Whitfield LIVER PROFILEon 07-22-2022 Albumin [Mass/Vol] 4.2 g/dL Normal 3.4-5.0 [facility] Comment on above: Performed By: #### L IPID, BMP, LIVER, TSH #### [facility] [address] [address] [address] Jinny Whitfield Albumin/Globulin [Mass ratio] 1.2 {ratio} Normal [facility] Comment on above: Performed By: #### L IPID, BMP, LIVER, TSH #### [facility] [address] [address] [address] Jinny Whitfield ALP [Catalytic activity/Vol] 83 U/L Normal 46-116 [facility] Comment on above: Performed By: #### L IPID, BMP, LIVER, TSH #### [facility] [address] [address] [address] Jinny Whitfield ALT [Catalytic activity/Vol] 28 U/L Normal 16-63 [facility] Comment on above: Performed By: #### L IPID, BMP, LIVER, TSH #### [facility] [address] [address] [address] Jinny Whitfield AST [Catalytic activity/Vol] 24 U/L Normal 15-37 [facility] Comment on above: Performed By: #### L IPID, BMP, LIVER, TSH #### [facility] [address] [place] [address] Dr. Jinny Whitfield BILI, CONJUGATED 0.1 mg/dL Normal 0.0-0.2 [facility] Comment on above: Performed By: #### L IPID, BMP, LIVER, TSH #### [facility] [address] [place] [address] Dr. Jinny Whitfield Bilirubin [Mass/Vol] 0.4 mg/dL Normal 0.2-1.0 [facility] Comment on above: Performed By: #### L IPID, BMP, LIVER, TSH #### [facility] [address] [place] [address] Dr. Jinny Whitfield Globulin (S) [Mass/Vol] 3.4 g/dL Normal [facility] Comment on above: Performed By: #### L IPID, BMP, LIVER, TSH #### [facility] [address] [place] [address] Dr. Jinny Whitfield Protein [Mass/Vol] 7.6 g/dL Normal 6.4-8.2 [facility] Comment on above: Performed By: #### L IPID, BMP, LIVER, TSH #### [facility] [address] [place] [address] Dr. Jinny Whitfield PROF CHEM 8 (BAS METB)on Anion gap [Moles/Vol] 11.7 mmol/L Normal [facility] Comment on above: Performed By: #### L IPID, BMP, LIVER, TSH #### [facility] [address] [place] [address] Dr. Jinny Whitfield Calcium [Mass/Vol] 8.9 mg/dL Normal 8.5-10.1 [facility] Comment on above: Performed By: #### L IPID, BMP, LIVER, TSH #### [facility] [address] [address] [address] Jinny Whitfield Chloride [Moles/Vol] 102 mmol/L Normal 98-107 [facility] Comment on above: Performed By: #### L IPID, BMP, LIVER, TSH #### [facility] [address] [address] [address] Jinny Whitfield CO2 [Moles/Vol] 30.2 mmol/L Normal 21.0-32.0 [facility] Comment on above: Performed By: #### L IPID, BMP, LIVER, TSH #### [facility] [address] [place] [address] Dr. Jinny Whitfield Creatinine [Mass/Vol] 0.86 mg/dL Normal 0.70-1.30 [facility] Comment on above: Performed By: #### L IPID, BMP, LIVER, TSH #### [facility] [address] [place] [address] Dr. Jinny Whitfield EGFR-AF BELGIAN >60 Normal >=60 [facility] Comment on above: Performed By: #### L IPID, BMP, LIVER, TSH #### [facility] [address] [place] [address] Dr. Jinny Whitfield EGFR-NON AF BELGIAN >60 Normal >=60 [facility] Comment on above: Performed By: #### L IPID, BMP, LIVER, TSH #### [facility] [address] [place] [address] Dr. Jinny Whitfield Glucose [Mass/Vol] 96 mg/dL Normal 74-106 [facility] Comment on above: Performed By: #### L IPID, BMP, LIVER, TSH #### [facility] [address] [place] [address] Dr. Jinny Whitfield Potassium [Moles/Vol] 3.9 mmol/L Normal 3.5-5.1 [facility] Comment on above: Performed By: #### L IPID, BMP, LIVER, TSH #### [facility] [address] [place] [address] Dr. Jinny Whitfield Sodium [Moles/Vol] 140 mmol/L Normal 136-145 [facility] Comment on above: Performed By: #### L IPID, BMP, LIVER, TSH #### [facility] [address] [address] [address] Jinny Whitfield Urea nitrogen [Mass/Vol] 18.0 mg/dL Normal 7.0-18.0 [facility] Comment on above: Performed By: #### L IPID, BMP, LIVER, TSH #### [facility] [address] [address] [address] Jinny Whitfield Urea nitrogen/Creatinin e [Mass ratio] 20.9 mg/mg Normal [facility] Comment on above: Performed By: #### L IPID, BMP, LIVER, TSH #### [facility] [address] [address] [address] Jinny Whitfield TSHon 07-22-2022 TSH 0.701 uIU/mL Normal 0.358-3.740 [facility] Comment on above: Performed By: #### L IPID, BMP, LIVER, TSH #### [facility] [address] [address] [address] Jinny Whitfield XR HUMERUS LT MIN [...] MIL MAGANA Date: 2021-07-31 17:51 Normal [facility] MARY ALICE Quick Testingon 2020 Result Negative [facility] Business Plan Other Established Visit (Neurosurg kiran)on 08-09-2018 Established Visit (Neurosurgery) Chief Complaint Patient is being seen for a follow-up Neurosurgical visit. 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 Battery changed in November 2016 from [employer] to [employer], with initially some relief, but no longer. [...] Vital Signs Recorded: 09Aug2018 01:42PM Heart Rate79 Jruecqkzedd73 Dtxclosk538 Stoqqqfxv82 Vlekov972 lb BMI Xosaevysps11.59 BSA Calculated2.13 Physical Exam incisions well healed, [...] Aug 09 2018 3:24PM EST (Author) Normal [employer] | [employer] Coding Summary.on 12-20-2017 Coding Summary. CODING DATE: 018 [facility] STATUS: Home (Routine DC) PAYOR: Commercial Insurance ADMIT DX: REASON FOR VISIT DX: M54.6 Pain in thoracic spine FINAL DX: PRINCIPAL: G89.29 Other chronic pain SECONDARY: M54.6 Pain in thoracic spine M54.14 Radiculopathy, thoracic region Z79.891 long term (current) use of opiate analgesic Z96.89 Presence [...] Feliz Date Saved: 12/20/2017 11:50 am Normal [facility] Consultation Noteon 12-21-19 18 Consultation Note HOSPITAL REGULATIONS : ALL Positive [...] time as well. Hewas subsequently [facility] where he saw Dr. Cordova replaced the [...] and followup as needed.Robles Becker M.D.lkrDictated: 12/14/2017 #[id number]: 12/19/2017 #[id number]: Emanuel Pierre M.D. [facility] Comment on above: Result Comment: Elec tronically Signed By: Robles Becker MD\\.br\\Date and Time Signed: 12/20/17 16:22 EDT Coding Summary.on 05-22-2017 Coding Summary. CODING DATE: 017 FINAL [facility] STATUS: Home (Routine DC) PAYOR: Commercial [...] Newton Date Saved: 05/22/2017 12:25 pm Normal [facility] MA Mamm Diag w/CAD if perf a [...] very important to your health. The current [employer] and National [employer] Network [...] Category 1-Negative Recommendation: Normal interval follow-up Normal [facility] US Breast Unilateral Rt Comp leteon 05-21-2017 INR Coag RelTime (Bld) Exam Date/Time:05/21/2017 14:19 ESTReason for Exam:Breast painReportPLEASE REFER TO THE MAMMOGRAM REPORT. FINAL REPORT Dictated: 05/21/2017 6:26 pm Ky Heath M.D. Signed (Electronic Signature): 05/21/2017 6:26 pm Signed by: Ky Heath M.D. Transcribed by: RAUL Technologist: DIONISIO [facility] Vital Signs Date Time Vital Sign Value Performing Clinician Facility 08-22-2021 14:30-0500 Body height 179.07 cm Gianluca Olexa Other [employer] Other 08-22-2021 14:30-0500 Body mass index (BMI) [Ratio] 31.68 kg/m2 Gianluca Olexa Other [employer] [facility] [employer] Other 08-22-2021 14:30-0500 Body weight 101.61 kg Gianluca Olexa Other [employer] [facility] [employer] Other 08-09-2021 10:45-0500 Body height 179.07 cm Gianluca Olexa Other [employer] [facility] [employer] Other 08-09-2021 10:45-0500 Body mass index (BMI) [Ratio] 31.54 kg/m2 Gianluca Olexa Other [employer] [facility] [employer] Other 08-09-2021 10:45-0500 Body weight 101.15 kg Gianluca Olexa Other [employer] [facility] [employer] Other 08-02-2021 10:30-0500 Body height 179.07 cm Gianluca Olexa Other [employer] [facility] [employer] Other 08-02-2021 10:30-0500 Body mass index (BMI) [Ratio] 30.98 kg/m2 Gianluca Olexa Other [employer] Other 08-02-2021 10:30-0500 Body weight 99.34 kg Gianluca Gonzales Other [employer] Other 05-01-2021 13:55-0400 Body height 179.07 cm Yaneth Horton Other [employer] Other 05-01-2021 13:55-0400 Body mass index (BMI) [Ratio] 30.98 kg/m2 Yaneth Horton Other [employer] Other 05-01-2021 13:55-0400 Body temperature 98.6 [degF] Yaneth Gonzalezmond Other [employer] Other 05-01-2021 13:55-0400 Body weight 99.34 kg Yaneth Gonzalezmond Other [employer] Other 05-01-2021 13:55-0400 Diastolic blood pressure 90 mm[Hg] Yaneth Horton Other [employer] Other 05-01-2021 13:55-0400 Respiratory rate 18 /min Yaneth Horton Other [employer] [facility] [employer] Other 05-01-2021 13:55-0400 SaO2% (BldA) [Mass fraction] 98 % Yaneth Horton Other [employer] Other 05-01-2021 13:55-0400 Systolic blood pressure 118 mm[Hg] Yaneth Sol Other [employer] Other 04-13-2021 11:15-0400 Body height 179.07 cm Yaneth Gonzalezmond Other [employer] [facility] [employer] Other 04-13-2021 11:15-0400 Body mass index (BMI) [Ratio] 30.41 kg/m2 Yaneth Horton Other [employer] [facility] [employer] Other 04-13-2021 11:15-0400 Body temperature 99.3 [degF] Yaneth Horton Other [employer] [facility] [employer] Other 04-13-2021 11:15-0400 Body weight 97.52 kg Yaneth Horton Other [employer] [facility] [employer] Other 04-13-2021 11:15-0400 Respiratory rate 18 /min Yaneth Horton Other [employer] [facility] [employer] Other 04-13-2021 11:15-0400 SaO2% (BldA) [Mass fraction] 97 % Yaneth Horton Other [employer] Other Encounters Encounter Date Encounter Type Care Provider Facility Start: 2023 End: 2023 ambulatory MARKEL LAZCANO Not Available Start: 08-20-2023 End: 08-20-2023 ambulatory Demetri Magaña Facility:[facility] Start: 08-20-2023 End: 08-20-2023 ambulatory DPM Demetri Magaña Work Phone: [facility] Work Phone: Start: 08-20-2023 End: 08-20-2023 Departed Referred DPM Demetri Magaña Work Phone: [facility] Start: 07-26-2022 Encounter for genera l adult medical examination without abnormal findings DR MARKEL LAZCANO [facility] Start: 07-22-2022 End: 07-23-[address] MARKEL LAZCANO Facility:[facility] Start: 07-22-2022 End: 07-23-2022 Encounter for general adult medical examination without abnormal findings DR MARKEL LAZCANO Facility:[facility] Start: 08-22-2021 End: 08-22-2021 ambulatory Gianluca Olexa Other [employer] Other Start: 08-22-2021 Postop follow up vis it related to original px Gianluca Olexa [facility] Start: 08-11-2021 End: 08-11-2021 ambulatory Gianluca Olexa Other [employer] Other Start: 08-11-2021 Telephone encounter Gianluca Olexa [facility] Start: 08-09-2021 End: 08-09-2021 ambulatory Gianluca Olexa Other [employer] Other Start: 08-09-2021 Encounter for other preprocedural examination Gianluca Olexa [facility] Start: 08-09-2021 Office outpatient vi sit 25 minutes Gianluca Olexa [facility] Start: 08-02-2021 End: 08-02-2021 ambulatory Gianluca Olexa Other [employer] Other Start: 08-02-2021 Office outpatient ne w 45 minutes Gianluca Olexa [facility] Start: 07-31-2021 End: 07-31-[address] MARKEL LAZCANO Facility: Start: 05-01-2021 Office outpatient vi sit 15 minutes Yaneth Horton [facility] Start: 04-13-2021 (URG) Urgent Care Visit Yaneth holliday [facility] Start: 08-09-2018 Patient encounter procedure RADHA FERRO Facility:[facility] Start: 08-09-2018 Encounter for other preprocedural examination RADHA FERRO [facility] Start: 12-14-2017 End: 12-15-2017 Ambulatory Robles Becker Facility:[facility] Start: 05-21-2017 End: 05-22-2017 Ambulatory [id number] EDUARDO LAZCANO Facility:[facility] Procedures Date Procedure Procedure Detail Performing Clinician Start: 07-22-[address] MARKEL OLIVERA Comment on above: Performed By: #### P SASC #### [facility] [address] [address] [address] Jinny Whitfield Immunizations Immunization Date Immunization Notes Care Provider Elroy dhaliwal 06-21-2021 COVID-19 mRNA, Comirnaty (Pfizer) DPM Demetri Magaña Work Phone: [facility] 05-01-2021 Toradol per 15 mg Yaneth Dym ond Other [employer] Other 09-28-2020 COVID-19 mRNA, Comirnaty (Pfizer) DPM Demetri Magaña Work Phone: [facility] 09-07-2020 COVID-19 mRNA, Comirnaty (Pfizer) DPM Demetri Blevinsharish Work Phone: [facility] Payers Date Payer Category Payer Self-pay [id number] 2023 Unknown [id number] 2017 Unknown [id number] 1971 Unknown [id number] 2.16. [id number] 1971 Unknown [id number] 2.16.84 [id number] 1971 Unknown [id number] 2.16.84 [id number] 1971 Unknown [id number] 2.16.84 [id number] 1959 [facility] [id number] 1959 Unknown [id number] Unknown [id number] 2.16.8 [id number] Social History Date Type Detail Facility Sex Assigned At [employer] Other Start: 08-11-2021 Tobacco smoking stat [facility] Never smoked tobacco (finding) [facility] Start: 1970 Sex Assigned At Male [facility] Medical Equipment Procedure Code Equipment Code Equipment Origin al Text Equipment Identifier Dates Repair, tendon Orthopaedic bone screw, bioabsorbable [id number] [facility] Start: 08-11-2021 Clinical Notes 04-13-2021 to 07-22-2022 [...] authenticated by: CIARA CROOK Date: 2022-07-22 19:07 [facility] 08-22-2021 Evaluation note Encounter Date Diagnosis Assessment Notes Aug, Other specified postprocedural states (ICD-10 - Z98.890) Aug, Rupture of left distal biceps tendon, subsequent encounter (ICD-10 - S46.212D) Radiographs reviewed with patient and . Instructed on passive flexion/exten alex of the elbow, as well as pronation/sup ination. Avoid strenuous use. Continue use of the splint for activities. Call with questions/con cerns. [employer] Other 01-27-2022 Evaluation note* Encounter Date Diagnosis Assessment Notes Treatment Notes Treatment Clinical Notes Jul, Other specified postprocedural states (ICD-10 - Z98.890) [employer] Other 01-25-2022 Evaluation note* Encounter Date Diagnosis [...] activity. Jul, Pre-op exam (ICD-10 - Z01.818) [employer] Other 01-18-2022 Evaluation note* Encounter Date Diagnosis [...] 3 months post op. 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 Assuming MRI [...] months before returning to heavy work activity. [employer] Other 10-17-2021 Evaluation note* Encounter Date Diagnosis [...] Other Low back pain material was printed [employer] Other 09-29-2021 Evaluation note* Encounter Date Diagnosis [...] Patient care instructions given in writting by [facility] document. [employer] Other Evaluation noteNo assessment information available [facility] Work Phone: [employer] general Narrative - Reported* Type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
[2023-09-29 12:03] LABS: Basophils Percent Auto 0.3 % (0.2-2.0); Eosinophils Percent Auto 0.5 % (0.9-7.0); Hematocrit 40.5 % (42.0-54.0); Hemoglobin 13.2 g/dL (14.0-18.0); Immature Granulocytes Abs Auto 0.12 10^3/uL (0.00-0.03); Immature Granulocytes Pct Auto 1.9 % (0.0-0.5); Lymphocytes Absolute Auto 1.6 10^3/uL (1.2-3.8); Lymphocytes Percent Auto 24.6 % (20.5-60.0); Mean Corpuscular HGB Conc 32.6 g/dL (29.9-35.2); Mean Corpuscular Hemoglobin 30.9 pg (25.9-34.0); Mean Corpuscular Volume 94.8 fL (80.0-94.0); Mean Platelet Volume 9.7 fL (9.5-13.5); Monocytes Absolute Auto 0.4 10^3/uL (0.3-0.8); Monocytes Percent Auto 6.5 % (1.7-12.0); Neutrophils Absolute Auto 4.2 10^3/uL (1.4-6.5); Neutrophils Percent Auto 66.2 % (43.0-75.0); Platelet Count 330 10^3/uL (150-450); Red Blood Count 4.27 10^6/uL (4.70-6.10); Red Cell Distribution Width 13.4 % (11.0-15.0); White Blood Count 6.3 10^3/uL (4.0-11.0)
[2023-09-29 12:23] LABS: Estimated Average Glucose 111 mg/dL; Glycohemoglobin A1C 5.5 % (4.5-6.2)
[2023-09-29 13:33] LABS: Prostate Specific Antigen Scrn 1.18 ng/mL (<=4.00)
[2023-09-29 13:34] LABS: Alanine Aminotransferase 76 U/L (16-63); Albumin Globulin Ratio 1.2; Albumin Level 4.1 g/dL (3.4-5.0); Alkaline Phosphatase 92 U/L (46-116); Anion Gap 9.8; Aspartate Amino Transferase 30 U/L (15-37); BUN Creatinine Ratio 18.3; Bilirubin Direct 0.1 mg/dL (0.0-0.2); Bilirubin Total 0.4 mg/dL (0.2-1.0); Calcium 9.1 mg/dL (8.5-10.1); Carbon Dioxide 31.9 mmol/L (21.0-32.0); Chloride 101 mmol/L (98-107); Chol HDL Ratio 5.3; Cholesterol 229 mg/dL (<=200); Estimated GFR (African America >60 (>=60); Estimated GFR (Non-African Ame >60 (>=60); Globulin 3.5 g/dL; Glucose 93 mg/dL (74-106); HDL Cholesterol 43 mg/dL (40-60); Potassium 3.7 mmol/L (3.5-5.1); Sodium 139 mmol/L (136-145); Thyroid Stimulating Hormone 0.818 uIU/mL (0.358-3.740); Total Protein 7.6 g/dL (6.4-8.2); Triglycerides 123 mg/dL (<=150); VLDL CHOLESTEROL 24.6 mg/dL
== END 2023-09-29 10:11 | disposition home or self-care (01) ==
LOC: LAB 10:11
PROVIDERS: PCP Family Medicine; Visit Provider Family Medicine
DX: Z00.00 Encounter for general adult medical examination without abnormal findings (principal); Z83.49 Family history of other endocrine, nutritional and metabolic diseases
CPT/HCPCS: 36415; 80048; 80061; 80076; 83036; 84120; 84443; 85025; G0103

== ENCOUNTER 2023-10-23 07:37 | Outpatient (RCR) | payer BC, SELFPAY ==
[2023-10-23 15:07] LABS: Basophils Percent Auto 0.5 % (0.2-2.0); Eosinophils Absolute Auto 0.1 10^3/uL (0.0-0.7); Eosinophils Percent Auto 0.8 % (0.9-7.0); Hematocrit 41.7 % (42.0-54.0); Hemoglobin 13.9 g/dL (14.0-18.0); Immature Granulocytes Abs Auto 0.03 10^3/uL (0.00-0.03); Immature Granulocytes Pct Auto 0.5 % (0.0-0.5); Lymphocytes Absolute Auto 1.9 10^3/uL (1.2-3.8); Mean Corpuscular HGB Conc 33.3 g/dL (29.9-35.2); Mean Corpuscular Volume 93.1 fL (80.0-94.0); Mean Platelet Volume 9.4 fL (9.5-13.5); Monocytes Absolute Auto 0.4 10^3/uL (0.3-0.8); Monocytes Percent Auto 6.2 % (1.7-12.0); Platelet Count 346 10^3/uL (150-450); Red Blood Count 4.48 10^6/uL (4.70-6.10); Red Cell Distribution Width 13.1 % (11.0-15.0); White Blood Count 6.4 10^3/uL (4.0-11.0)
[2023-10-23 16:07] LABS: Percent Iron Saturation 35.1 %
[2023-10-24 15:08] LABS: Albumin 4.6 g/dL (2.9-4.4); Alpha-1-Globulin 0.2 g/dL (0.0-0.4); Alpha-2-Globulin 0.7 g/dL (0.4-1.0); Gamma Globulin 1.2 g/dL (0.4-1.8); Immunoglobulin A, Qn, Serum 158 mg/dL (90-386); Immunoglobulin G, Qn, Serum 1310 mg/dL (603-1613); Immunoglobulin M, Qn, Serum 44 mg/dL (20-172); Protein, Total 7.8 g/dL (6.0-8.5)
== END 2023-11-13 23:59 | disposition home or self-care (01) ==
LOC: INF 07:37
PROVIDERS: PCP Family Medicine; Visit Provider Internal Medicine Hematology & Oncology
DX: E80.29 Other porphyria (principal); D64.9 Anemia, unspecified; R74.01 Elevation of levels of liver transaminase levels
CPT/HCPCS: 36415; 82135; 82570; 82728; 82784; 83540; 83550; 84110; 84155; 84165; 85025; 86334; G0463

== ENCOUNTER 2023-11-20 07:31 | Outpatient (RCR) | payer BC, SELFPAY | END 2023-12-14 23:59 | disposition home or self-care (01) | LOC: INF 07:31 | PROVIDERS: PCP Family Medicine; Visit Provider Internal Medicine Hematology & Oncology | DX: E80.29 Other porphyria (principal); D64.9 Anemia, unspecified; Z90.49 Acquired absence of other specified parts of digestive tract | CPT/HCPCS: G0463 ==

== ENCOUNTER 2023-12-11 14:52 | Outpatient (OUT) | payer BC, SELFPAY ==
--- NOTE | 2023-12-11 | XR_ITS ---
The [address] [address] Patient Name: RAMIRO BRUNO MRN: [id number] date: 1970 Sex: M Assigned Patient Location: Current Patient Location: Accession/Order Number: [id number] Exam Date: 12/11/2023 15:12 Report Date: 12/12/2023 07:32 At the request of: TERRY RANDLE Procedure: XR foot LT min 3V PROCEDURE: XR foot LT min 3V COMPARISON: 05/16/2023, 08/23/2023 HISTORY: LEFT FOOT PAIN FINDINGS: BONES:Stable remote resection posterior calcaneus. Plantar enthesopathic spurring of the calcaneus. New permanent pattern of the bones suggests developing osteopenia. Degenerative changes most significant along the posterior talocalcaneal joint SOFT TISSUES:Soft tissue swelling in the region of the Achilles tendon and posterior tibial EFFUSION:None visible. OTHER: Negative. XR/XR foot LT min 3V IMPRESSION: Stable postsurgical changes Increased soft tissue swelling region of the Achilles tendon and posterior heel Electronically authenticated by: DALE LANCASTER Date: 12/12/2023 07:32
--- OUTSIDE RECORDS SUMMARY | 2023-12-11 15:08 | XMS_ITS | CCD ---
Author Organization [facility] Care Team Providers Care Horticultural Worker Name Role Phone AUGUSTO LAZCANO~[phone] UNKNOWN Unavailable Unavailable AUGUSTO LAZCANO~[phone] UNKNOWN Unavailable Unavailable AUGUSTO LAZCANO~[phone] UNKNOWN Unavailable Unavailable AUGUSTO LAZCANO~[phone] UNKNOWN Unavailable Unavailable Robles Becker Unavailable Unavailable Ky Campbell Unavailable Unavailable AUGUSTO LAZCANO~[phone] UNKNOWN Unavailable Unavailable RADHA FERRO Attending Robin casanova UNKNOWN Primary Care Unavailable Yaneth Horton Unavailable Gianluca Gonzales Unavailable JALEESA, DR AUGUSTO Sharpe Primary Care Unavailable ELZA, DR CHUCK Geiger Admitting Unavailreymundo BERTRAND, DR CHUCK Geiger Attending Unavailreymundo GAONA, DR CURIEL Consulting Unavailable Mil Magana Consulting Unavailable JALEESA, DR AUGUSTO Sharpe Admitting Unavailable JALEESA, DR AUGUSTO Sharpe Attending Unavailable JALEESA, DR AUGUSTO Sharpe Primary Care Unavailable AMBREEN, DR CIARA Ragland Consulting Unavailable JALEESA, DR AUGUSTO Sharpe Consulting Unavailable FIONA Magaña Attending Provider AUGUSTO LAZCANO Attending Unavailable FIONA Magaña Attending Provider MD Landy Torres Attending Provider [phone] MD Augusto Lazcano Primary Care Provider [phone] Demetri Magaña Attending Unavailable Demetri Magaña Admitting Unavailable Landy Torres Attending Unavailable Landy Torres Admitting Unavailable Augusto Lazcano Primary Care Unavailable Allergies Allergy Classification Reported Allergen(s) Allergy Type Date of Onset Reaction(s) Facility (6 sources) Sulfamethoxazole / Trimethoprim Drug Allergy rash [email or web address] Other (1 source) Sulfamethoxazole Drug Allergy 2 [facility] Rep[facility] (1 source) Trimethoprim Drug Allergy 2 [facility] Medications Current Medications Medication Drug [...] Jul, Active doxazosin 8 mg oral tablet (8 sources) alpha-Adrenergic Sony Start: 08-10-2021 take 8 mg by mouth once daily at bedtime Doxazosin Active 8 MG PO Daily at bedtime August 10, 2021 1:00am Doxazosin Mesyla te Active finasteride 5 mg oral tablet (2 sources) 5-alpha Reductase Inhibitor Start: 08-10-2021 take 5 mg by mouth once daily at bedtime Finasteride Active 5 MG PO Daily at bedtime August 10, 2021 1:00am hydroCHLOROthiazide 12.5 mg / losartan potassium 50 mg oral tablet (2 sources) Thiazide Diuretic, Angiotensin 2 Receptor Sony Start: 08-10-2021 take 1 tablet by mouth once daily in the morning Losartan-Hydroch lorothiazide Active 1 TAB PO Every morning August 10, 2021 1:00am lidocaine 0.05 mg/mg medicated patch (2 sources) Antiarrhythmic, Amide Local Anesthetic Start: 08-10-2021 apply 1 dose topically once daily Lidocaine Active 3 PATCH TOPICAL Daily August 10, 2021 1:00am losartin (6 sources) losartin HTZ Active losartin Active meclizine hydrochloride 25 mg oral tablet (2 sources) Antiemetic Start: 08-10-2021 take 25 mg by mouth once daily Meclizine Active 25 MG PO Daily August 10, 2021 1:00am morphine sulfate 15 mg oral tablet (2 sources) Opioid Agonist Start: 08-10-2021 take 15 mg by mouth four times daily Morphine Active 15 MG PO Four times daily August 10, 2021 1:00am oxaprozin 600 mg oral tablet (4 sources) Nonsteroidal Anti-inflammatory Drug Start: 08-10-2021 take 600 mg by mouth twice daily Oxaprozin Active 600 MG PO Twice daily August 10, 2021 1:00am Start: 08-10-2021 End: 08-10-2021 Oxaprozin Discontinued MG TA BLET August 10, 2021 1:00am August 10, 2021 10:21am Simvastatin (6 sources) HMG-CoA Reductase Inhibitor Simvastatin Active sucralfate 1000 mg oral tablet (2 sources) Aluminum Complex Start: 08-10-19 take 1 g by mouth four times daily Sucralfate Active 1 GM PO Four times daily August 10, 2021 1:00am SUMAtriptan 100 mg oral tablet (2 sources) Serotonin-1b and Serotonin-1d Receptor Agonist Start: 08-10-19 take 100 mg by mouth once daily Sumatriptan Succinate Active 100 MG PO Daily August 10, 2021 1:00am tadalafil 10 mg oral tablet (2 sources) Phosphodiesterase 5 Inhibitor Start: 08-10-19 take 10 mg by mouth once daily Tadalafil Active 10 MG PO Daily August 10, 2021 1:00am tiZANidine 4 mg oral tablet (6 sources) Central alpha-2 Adrenergic Agonist Start: 08-10-19 take 4 mg by mouth once daily at bedtime Tizanidine Active 4 MG PO Daily at bedtime August 10, 2021 1:00am take 1 tablet by mouth every eig ht hours Zanaflex 4 MG 1 tablet as needed Orally Three times a day Active valACYclovir 1000 mg oral tablet (2 sources) Herpesvirus Nucleoside Analog DNA Polymerase Inhibitor, Herpes Simplex Virus Nucleoside Analog DNA Polymerase Inhibitor, Herpes Zoster Virus Nucleoside Analog DNA Polymerase Inhibitor Start: 08-10-2021 take 1000 mg by mouth once daily Valacyclovir Active 1000 MG PO Daily August 10, 2021 1:00am Completed/Discontinued Medications Medication Drug Class(es) Dates Sig [...] Classification Problem Date Documented Da te Episodic/Chronic Deficiency and other anemia (1 source) Anemia, unspecified; Translations: [Anemia, unspecified] Onset: 11-09-2023 Episodic Other connective tissue disease (1 source) Neuralgia [...] 04-13-2021 Episodic Other aftercare (1 source) 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; Translations: [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] Onset: 08-02-2021 Episodic Other [...] Test Name Value Interpretation Reference Range Facility MR abdomen wo/w conon 2023 MR abdomen wo/w con [facility] Main [place] [address] [place] [address] MRI Report Signed Patient: Carlton William MR#: Timothy [id number] : 1970 Acct:[id number] Age/Sex: 53 / M ADM Date: 11/09/23 Loc: MR Room: Type: [facility] Attending Dr: Landy Torres MD Copies to: Landy Torres MD Ordering Provider: Landy Torres MD Date of Service: 11/09/23 MR/MR abdomen wo/w con: E80.29, E80.20, D64.9, R74.01 MR abdomen wo/w con 11/09/2023 3:51 PM SIGNS AND SYMPTOMS: Anemia, porphyria, slow healing, elevated liver transaminase TECHNIQUE: Multiplanar multisequence MR images of the abdomen were obtained with and without IV contrast Contrast: 20 mL of intravenous ProHance COMPARISON: None. FINDINGS: Lower Chest: Within normal limits. ABDOMEN: Liver: Within normal limits. Bile Ducts: Normal caliber. Gallbladder: Previously removed Pancreas: Within normal limits. Spleen: Within normal limits. Adrenals: Within normal limits. Kidneys: There is a simple cyst in the left renal cortex requiring no further follow-up. Bowel: Normal caliber. Mesenteric Lymph Nodes: No enlarged mesenteric lymph nodes. Peritoneum: No ascites or free air, no fluid collection. Vessels: Normal flow voids are noted in the abdominal aorta, inferior vena cava, and portal veins. Retroperitoneum: Within normal limits. Abdominal Wall: Within normal limits. Bones: Within normal limits. MR/MR abdomen wo/w con IMPRESSION: No acute intra-abdominal pathology. The liver is normal in signal without hepatic steatosis, edema, mass, or abnormal enhancement. No intrahepatic or extrahepatic biliary ductal dilatation. The portal veins are patent and within normal limits. Impression dictated by: Topher Lucio M.D.11/09/2023 6:31 PM Dictation Location: RADIO-PC-13 Transcribed By: CRISTI 11/09/231830 Dictated By: Topher Lucio II, MD 11/09/231815 Signed By: 11/09/231830 Normal [facility] XR KUBon 11-09-2023 XR KUB [facility] [place] [address] XRay Report Signed Patient: Carlton William MR#: Timothy [id number] : 1970 Acct:[id number] Age/Sex: 53 / M ADM Date: 11/09/23 Loc: Room: Type: [facility] Attending Dr: Landy Torres MD Copies to: Landy Torres MD Ordering Provider: Landy Torres MD Date of Service: 11/09/23 XR/XR KUB: MRI CLEARANCE XR KUB 11/09/2023 4:17 PM SIGNS AND SYMPTOMS: MRI CLEARANCE PROTOCOL: Frontal radiographs of the abdomen and pelvis COMPARISON: None FINDINGS: Surgical clips are present in the right upper quadrant consistent with prior cholecystectomy. There is a tiny metallic foreign body to the left of midline adjacent to the L2 vertebral body possibly representing a previous anchor. No residual stimulator lead is noted. There is a nonobstructive bowel gas pattern. No radiographic evidence of free air. The bony structures are grossly intact. XR/XR KUB IMPRESSION: There is a tiny metallic foreign body to the left of midline adjacent to the L2 vertebral body possibly representing a previous anchor. No residual stimulator lead is noted. Impression dictated by: Topher Lucio M.D.11/09/2023 5:58 PM Dictation Location: RADIO-PC-13 Transcribed By: CRISTI 11/09/231757 Dictated By: Topher Lucio II, MD 11/09/231754 Signed By: 11/09/231757 Normal [facility] Gómez 08-20-2023 L Specimen: [id number] Received: 08/21/23-1237 Status: SOUT [facility] Num: [id number] Spec Type: Surgical Subm Dr: Demetri Magaña DPM, MS Tissues: A Bone Fragments - Other than Path Fracture (LT CALCANEAL SPUR) Procedures: HE, Gross/Micro L3, Decalcification Age/ Patient Sex Location Account Attending Physician Carlton William 52/M LABELL [id number] Demetri Magaña DPM, MS SPEC NUM: [id number] RECD: 08/21/23 STATUS: PALLAVI REZacarias NUM: [id number] DEMAR: 08/20/[address]: Demetri Magaña DPM, MS ENTERED: 08/21/[address] [facility] [address]: Yari,Lab SPEC TYPE: Surgical DEPT: KAR HOLLOWAY ORDERED: [...] surface of the bone is yellow-soriano, trabecular. Monitor Car Operator are submitted following decalcification in one cassette labeled A1. CPT Codes 05382, 58663 Specimen: [id number] Received: 08/21/23-1236 Status: PALLAVI Zaman Num: [id number] Spec Type: Surgical Subm Dr: Demetri Magaña,DPM, MS Tissues: A Bone Fragments - Other than Path Fracture (LT CALCANEAL SPUR) Procedures: HE, Gross/Micro L3, Decalcification Patient: Carlton William [id number] (Continued) Signed (signature on file) Elle Whitfield MD 08/24/23 1611 Normal [facility] TESTOSTERONE, TOTALon 2022 Testosterone [Mass/Vol] 685 ng/dL Normal 264-916 [facility] Comment on above: Result Comment: Adul t male reference interval is based on a population of healthy nonobese males (BMI <30) between 19 and 39 years old. Dominguez, et.al. JCEM 2017,102;7485-0943. PMID: [id number]. Performed By: #### L IPID, BMP, LIVER, TSH #### [facility] [address] [address] [address] Jinny Whitfield CBC AUTO DIFFon 07-22-2022 BASO # 0.0 103/ul Normal 0.0-0.1 [facility] Comment on above: Performed By: #### C BC #### [facility] [address] [place] [address] Dr. Jinny Whitfield Basophils/100 WBC (Bld) 0.4 % Normal 0.2-2.0 [facility] Comment on above: Performed By: #### C BC #### [facility] [address] [place] [address] Dr. Jinny Whitfield EO # 0.0 103/ul Normal 0.0-0.7 [facility] Comment on above: Performed By: #### C BC #### [facility] [address] [place] [address] Dr. Jinny Whitfield Eosinophils/100 WBC (Bld) 0.5 % Critically low 0.9-7.0 [facility] Comment on above: Performed By: #### C BC #### [facility] [address] [place] [address] Dr. Jinny Whitfield Erythrocyte distribution width (RBC) [Ratio] 12.8 % Normal 11.0-15.0 [facility] Comment on above: Performed By: #### C BC #### [facility] [address] [place] [address] Dr. Jinny Whitfield Hematocrit (Bld) [Volume fraction] 36.5 % Critically low 42.0-54.0 [facility] Comment on above: Performed By: #### C BC #### [facility] [address] [place] [address] Dr. Jinny Whitfield Hemoglobin (Bld) [Mass/Vol] 13.3 g/dL Critically low 14.0-18.0 [facility] Comment on above: Performed By: #### C BC #### [facility] [address] [place] [address] Dr. Jinny Whitfield IG # 0.03 10e3/ul Normal 0.00-0.03 [facility] Comment on above: Performed By: #### C BC #### [facility] [address] [place] [address] Dr. Jinny Whitfield IG % 0.5 % Normal 0.0-0.5 [facility] Comment on above: Performed By: #### C BC #### [facility] [address] [place] [address] Dr. Jinny Whitfield LYMPH # 1.3 103/ul Normal 1.2-3.8 [facility] Comment on above: Performed By: #### C BC #### [facility] [address] [place] [address] Dr. Jinny Whitfield Lymphocytes/100 WBC (Bld) 22.3 % Normal 20.5-60.0 [facility] Comment on above: Performed By: #### C BC #### [facility] [address] [place] [address] Dr. Jinny Whitfield MANUAL DIFF REQ NO Normal [facility] Comment on above: Performed By: #### C BC #### [facility] [address] [place] [address] Dr. Jinny Whitfield MCH (RBC) [Entitic mass] 30.7 pg Normal 25.9-34.0 [facility] Comment on above: Performed By: #### C BC #### [facility] [address] [place] [address] Dr. Jinny Whitfield MCHC (RBC) [Mass/Vol] 36.4 g/dL Critically high 29.9-35.2 [facility] Comment on above: Performed By: #### C BC #### [facility] [address] [place] [address] Dr. Jinny Whitfield MCV (RBC) [Entitic vol] 84.3 fL Normal 80.0-94.0 [facility] Comment on above: Performed By: #### C BC #### [facility] [address] [place] [address] Dr. Jinny Whitfield MONO # 0.3 103/ul Normal 0.3-0.8 [facility] Comment on above: Performed By: #### C BC #### [facility] [address] [place] [address] Dr. Jinny Whitfield Monocytes/100 WBC (Bld) 5.9 % Normal 1.7-12.0 [facility] Comment on above: Performed By: #### C BC #### [facility] [address] [address] [address] Jinny Whitfield NEUT # 3.9 103/ul Normal 1.4-6.5 [facility] Comment on above: Performed By: #### C BC #### [facility] [address] [address] [address] Jinny Whitifeld Neutrophils/100 WBC (Bld) 70.4 % Normal 43.0-75.0 [facility] Comment on above: Performed By: #### C BC #### [facility] [address] [address] [address] Jinny Whitfield Platelet mean volume (Bld) [Entitic vol] 8.8 fL Critically low 9.5-13.5 [facility] Comment on above: Performed By: #### C BC #### [facility] [address] [address] [address] Jinny Whitfield PLT 317 103/ul Normal 150-450 [facility] Comment on above: Performed By: #### C BC #### [facility] [address] [address] [address] Jinny Whitfield RBC 4.33 106/ul Critically low 4.70-6.10 [facility] Comment on above: Performed By: #### C BC #### [facility] [address] [address] [address] Jinny Whitfield WBC 5.6 103/ul Normal 4.0-11.0 [facility] Comment on above: Performed By: #### C BC #### [facility] [address] [address] [address] Jinny Whitfield GLYCOHEMOGLOBIN A1Con 2022 ADA RECOMMENDATION SEE BELOW Normal [facility] Comment on above: Result Comment: ADA RECOMMENDED LIMIT 4.0 - 6.0 ADA THERAPEUTIC TARGET < 7.0 ACTION SUGGESTED > 7.0 Performed By: #### A 1C #### [facility] [address] [address] [address] Jinny Whitfield Glucose [Mass/Vol] 117 mg/dL Normal [facility] Comment on above: Performed By: #### A 1C #### [facility] [address] [address] [address] Jinny Whitfield HbA1c (Bld) [Mass fraction] 5.7 % Normal 4.5-6.2 [facility] Comment on above: Performed By: #### A 1C #### [facility] [address] [address] [address] Jinny Whitfield LIPID PROFILEon 07-22-2022 CHOL-HDL RATIO NORM SEE BELOW Normal [facility] Comment on above: Result Comment: 3.3 - 4.4 LOW RISK 4.4 - 7.1 AVERAGE RISK 7.1 - 11.0 MODERATE RISK >11.0 HIGH RISK Performed By: #### L IPID, BMP, LIVER, TSH #### [facility] [address] [address] [address] Jinny Whitfield Cholesterol [Mass/Vol] 168 mg/dL Normal <=200 [facility] Comment on above: Performed By: #### L IPID, BMP, LIVER, TSH #### [facility] [address] [address] [address] Jinny Whitfield Cholesterol in HDL [Mass/Vol] 46 mg/dL Normal 40-60 [facility] Comment on above: Performed By: #### L IPID, BMP, LIVER, TSH #### [facility] [address] [address] [address] Jinny Whitfield Cholesterol in LDL [Mass/Vol] 102.8 mg/dL Normal [facility] Comment on above: Performed By: #### L IPID, BMP, LIVER, TSH #### [facility] [address] [address] [address] Jinny Whitfield Cholesterol.total/ Cholesterol in HDL [Mass ratio] 3.7 {ratio} Normal [facility] Comment on above: Performed By: #### L IPID, BMP, LIVER, TSH #### [facility] [address] [address] [address] Jinny Whitfield HDL NORMAL > or = 60 mg/dl - LO W CARDIOVASCULAR RISK <40 mg/dl - HIGH CARDIOVASCULAR RISK Normal [facility] Comment on above: Performed By: #### L IPID, BMP, LIVER, TSH #### [facility] [address] [address] [address] Jinny Whitfield LDL CALC NORMAL SEE BELOW Normal [facility] Comment on above: Result Comment: <100 mg/dl OPTIMAL 100 - 129 mg/dl NEAR OR ABOVE OPTIMAL 130 - 159 mg/dl BORDERLINE HIGH 160 - 189 mg/dl HIGH >190 mg/dl VERY HIGH Performed By: #### L IPID, BMP, LIVER, TSH #### [facility] [address] [address] [address] Jinny Whitfield Triglyceride [Mass/Vol] 96 mg/dL Normal <=150 [facility] Comment on above: Performed By: #### L IPID, BMP, LIVER, TSH #### [facility] [address] [address] [address] Jinny Whitfield VLDL CALC 19.2 mg/dL Normal [facility] Comment on above: Performed By: #### L IPID, BMP, LIVER, TSH #### [facility] [address] [address] [address] Jinny Whitfield LIVER PROFILEon 07-22-2022 Albumin [Mass/Vol] 4.2 g/dL Normal 3.4-5.0 [facility] Comment on above: Performed By: #### L IPID, BMP, LIVER, TSH #### [facility] [address] [address] [address] Jinny Whitfield Albumin/Globulin [Mass ratio] 1.2 {ratio} Normal [facility] Comment on above: Performed By: #### L IPID, BMP, LIVER, TSH #### [facility] [address] [address] [address] Jinny Whitfield ALP [Catalytic activity/Vol] 83 U/L Normal 46-116 [facility] Comment on above: Performed By: #### L IPID, BMP, LIVER, TSH #### [facility] [address] [address] [address] Jinny Whitfield ALT [Catalytic activity/Vol] 28 U/L Normal 16-63 [facility] Comment on above: Performed By: #### L IPID, BMP, LIVER, TSH #### [facility] [address] [address] [address] Jinny Whitfield AST [Catalytic activity/Vol] 24 U/L Normal 15-37 [facility] Comment on above: Performed By: #### L IPID, BMP, LIVER, TSH #### [facility] [address] [address] [address] Jinny Whitfield BILI, CONJUGATED 0.1 mg/dL Normal 0.0-0.2 [facility] Comment on above: Performed By: #### L IPID, BMP, LIVER, TSH #### [facility] [address] [address] [address] Jinny Whitfield Bilirubin [Mass/Vol] 0.4 mg/dL Normal 0.2-1.0 [facility] Comment on above: Performed By: #### L IPID, BMP, LIVER, TSH #### [facility] [address] [address] [address] Jinny Whitfield Globulin (S) [Mass/Vol] 3.4 g/dL Normal [facility] Comment on above: Performed By: #### L IPID, BMP, LIVER, TSH #### [facility] [address] [address] [address] Jinny Whitfield Protein [Mass/Vol] 7.6 g/dL Normal 6.4-8.2 [facility] Comment on above: Performed By: #### L IPID, BMP, LIVER, TSH #### [facility] [address] [place] [address] Dr. Jinny Whitfield PROF CHEM 8 (BAS METB)on Anion gap [Moles/Vol] 11.7 mmol/L Normal [facility] Comment on above: Performed By: #### L IPID, BMP, LIVER, TSH #### [facility] [address] [place] [address] Dr. Jinny Whitfield Calcium [Mass/Vol] 8.9 mg/dL Normal 8.5-10.1 [facility] Comment on above: Performed By: #### L IPID, BMP, LIVER, TSH #### [facility] [address] [address] [address] Jinny Whitfield Chloride [Moles/Vol] 102 mmol/L Normal 98-107 [facility] Comment on above: Performed By: #### L IPID, BMP, LIVER, TSH #### [facility] [address] [place] [address] Dr. Jinny Whitfield CO2 [Moles/Vol] 30.2 mmol/L Normal 21.0-32.0 [facility] Comment on above: Performed By: #### L IPID, BMP, LIVER, TSH #### [facility] [address] [address] [address] Jinny Whitfield Creatinine [Mass/Vol] 0.86 mg/dL Normal 0.70-1.30 [facility] Comment on above: Performed By: #### L IPID, BMP, LIVER, TSH #### [facility] [address] [place] [address] Dr. Jinny Whitfield EGFR-AF SCOTTISH >60 Normal >=60 [facility] Comment on above: Performed By: #### L IPID, BMP, LIVER, TSH #### [facility] [address] [place] [address] Dr. Jinny Whitfield EGFR-NON AF SCOTTISH >60 Normal >=60 [facility] Comment on above: Performed By: #### L IPID, BMP, LIVER, TSH #### [facility] [address] [address] [address] Jinny Whitfield Glucose [Mass/Vol] 96 mg/dL Normal 74-106 [facility] Comment on above: Performed By: #### L IPID, BMP, LIVER, TSH #### [facility] [address] [address] [address] Jinny Whitfield Potassium [Moles/Vol] 3.9 mmol/L Normal 3.5-5.1 [facility] Comment on above: Performed By: #### L IPID, BMP, LIVER, TSH #### [facility] [address] [address] [address] Jinny Whitfield Sodium [Moles/Vol] 140 mmol/L Normal 136-145 [facility] Comment on above: Performed By: #### L IPID, BMP, LIVER, TSH #### [facility] [address] [address] [address] Jinny Whitfield Urea nitrogen [Mass/Vol] 18.0 mg/dL Normal 7.0-18.0 [facility] Comment on above: Performed By: #### L IPID, BMP, LIVER, TSH #### [facility] [address] [address] [address] Jinny Whitfield Urea nitrogen/Creatinin e [Mass ratio] 20.9 mg/mg Normal [facility] Comment on above: Performed By: #### L IPID, BMP, LIVER, TSH #### [facility] [address] [address] [address] Jinny Whitfield TSHon 07-22-2022 TSH 0.701 uIU/mL Normal 0.358-3.740 [facility] Comment on above: Performed By: #### L IPID, BMP, LIVER, TSH #### [facility] [address] [address] [address] Jinny Whitfield XR HUMERUS LT MIN [...] MIL MAGANA Date: 2021-07-31 17:51 Normal [facility] COVID Quick Testingon 2020 Result Negative [email or web address] Other Established Visit (Neurosurg kiran)on 08-09-2018 Established Visit (Neurosurgery) Chief Complaint Patient is being seen for a follow-up Neurosurgical visit. 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 Battery changed in November 2016 from [employer] to [employer], with initially some relief, but no longer. [...] Vital Signs Recorded: 09Aug2018 01:42PM Heart Rate79 Jgsicvlcqak44 Zvzeeojd048 Rwvnesldc78 Qemwza408 lb BMI Nkgbchyqha37.59 BSA Calculated2.13 Physical Exam incisions well healed, [...] Aug 09 2018 3:24PM EST (Author) Normal [employer] Coding Summary.on 12-20-2017 Coding Summary. 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 Hewas subsequently referred to [facility] where he saw Dr. Cordova replaced [...] and followup as needed.Robles Becker M.D.lkrDictated: 12/14/2017 #[id number]: 12/19/2017 #[id number]: Santos Campbell M.D.Robles Becker M.D. [facility] Comment on above: Result Comment: Elec tronically Signed By: Rosiat CAPUTO, Robles Holliday\.br\Date and Time Signed: 12/20/17 16:22 EDT Coding Summary.on 05-22-2017 Coding Summary. 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 The current [employer] and [employer] [...] Category 1-Negative Recommendation: Normal interval follow-up Normal [facility] US Breast Unilateral Rt Comp leteon 05-21-2017 INR Coag RelTime (Bld) Exam Date/Time:05/21/2017 14:19 ESTReason for Exam:Breast painReportPLEASE REFER TO THE MAMMOGRAM REPORT. FINAL REPORT Dictated: 05/21/2017 6:26 pm Ky Heath M.D. Signed (Electronic Signature): 05/21/2017 6:26 pm Signed by: Ky Heath M.D. Transcribed by: RAUL Technologist: DIONISIO Benedict [facility] Vital Signs Date Time Vital Sign Value Performing Clinician Facility 08-22-2021 14:30-0500 Body height 179.07 cm Gianluca Olexa Other [email or web address] Other 08-22-2021 14:30-0500 Body mass index (BMI) [Ratio] 31.68 kg/m2 Gianluca Olexa Other [email or web address] Other 08-22-2021 14:30-0500 Body weight 101.61 kg Gianluca Olexa Other [email or web address] Other 08-09-2021 10:45-0500 Body height 179.07 cm Gianluca Olexa Other [email or web address] Other 08-09-2021 10:45-0500 Body mass index (BMI) [Ratio] 31.54 kg/m2 Gianluca Olexa Other [email or web address] Other 08-09-2021 10:45-0500 Body weight 101.15 kg Gianluca Olexa Other [email or web address] Other 08-02-2021 10:30-0500 Body height 179.07 cm Gianluca Olexa Other [email or web address] Other 08-02-2021 10:30-0500 Body mass index (BMI) [Ratio] 30.98 kg/m2 Gianluca Olexa Other [email or web address] Other 08-02-2021 10:30-0500 Body weight 99.34 kg Gianluca Gonzales Other [email or web address] Other 05-01-2021 13:55-0400 Body height 179.07 cm Yaneth Horton Other [email or web address] Other 05-01-2021 13:55-0400 Body mass index (BMI) [Ratio] 30.98 kg/m2 Yaneth Gonzalezmond Other [email or web address] Other 05-01-2021 13:55-0400 Body temperature 98.6 [degF] Yaneth Gonzalezmond Other [email or web address] Other 05-01-2021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
== END 2023-12-11 14:53 | disposition home or self-care (01) ==
LOC: EC 14:52
PROVIDERS: PCP Family Medicine; Visit Provider Podiatrist Foot & Ankle Surgery
DX: M79.672 Pain in left foot (principal); Z98.890 Other specified postprocedural states
CPT/HCPCS: 73630

== ENCOUNTER 2024-10-31 12:38 | Outpatient (OUT) | payer BC, SELFPAY ==
--- OUTSIDE RECORDS SUMMARY | 2024-10-31 13:00 | XMS_ITS | CCD ---
Author Organization [facility] Care Team Providers Care Manager Field Sales Name Role Phone JALEESA, AUGUSTO~[id number] UNKNOWN Unavailable Unavailable NADERER, AUGUSTO~[id number] UNKNOWN Unavailable Unavailable NADERER, AUGUSTO~[id number] UNKNOWN Unavailable Unavailable NADERER, AUGUSTO~[id number] UNKNOWN Unavailable Unavailable Robles Becker Unavailable Unavailable Ky Campbell Unavailable Unavailable JALEESA, AUGUSTO~[id number] UNKNOWN Unavailable Unavailable RADHA FERRO Attending Robin casanova UNKNOWN Primary Care Unavailable Yaneth Horton Unavailable Gianluca Gonzales Unavailable JALEESA, DR AUGUSTO Sharpe Primary Care Unavailable ELZA, DR CHUCK Geiger Admitting Unavailreymundo BERTRAND, DR CHUCK Geiger Attending Unavailabl e JIMENEZ, DR CURIEL Consulting Unavailable Mil Magana Consulting Unavailable JALEESA, DR AUGUSTO Sharpe Admitting Unavailable JALEESA, DR AUGUSTO Sharpe Attending Unavailable JALEESA, DR AUGUSTO Sharpe Primary Care Unavailable AMBREEN, DR CIARA Ragland Consulting Unavailable JALEESA, DR AUGUSTO Sharpe Consulting Unavailable FIONA Magaña Attending Provider FIONA Magaña Attending Provider MD Landy Torres Attending Provider MD Augusto Lazcano Primary Care Provider Demetri Magaña Attending Unavailable Demetri Magaña Admitting Unavailable Landy Torres Attending Unavailable Landy Torres Admitting Unavailable Augusto Lazcano Primary Care Unavailable Augusto Lazcano MD Primary Care Provider Augusto Lazcano MD Unavailable AUGUSTO LAZCANO Attending Unavailable AUGUSTO LAZCANO Attending Unavailable Allergies Allergy Classification Reported Allergen(s) Allergy Type Date of Onset Reaction(s) Facility (6 sources) Sulfamethoxazole / Trimethoprim Drug Allergy rash [employer] Other (1 source) Sulfamethoxazole Drug Allergy 2 [facility] Repository (1 source) Trimethoprim Drug Allergy 2 [facility] Repository (13 sources) Amoxicillin Drug Allergy 4 Rash [facility] Work Phone: Medications Current Medications Medication Drug Class(es) Dates Sig (Normalized) Sig (Original) acetaminophen 325 mg / oxyCODONE hydrochloride 5 mg oral tablet (2 sources) Opioid Agonist Start: 08-11-2021 take 1 tablet by mouth every four hours as needed for pain Percocet 5-325 MG 1 tablet as needed for pain Orally up to every 4 hrs for 5 days Jul, Active [id number] 200 actuat albuterol 0.09 mg/actuat metered dose inhaler (13 sources) beta2-Adrenergic Agonist Start: 10-20-2022 take 2 puff(s) by inhalation every four hours for wheezing albuterol HFA 90 mcg/act inhaler Inhale 2 puffs every 4 (four) hours if needed for wheezing or shortness of breath 10/20/2022 Active celecoxib 200 mg oral capsule (1 source) Nonsteroidal Anti-inflammatory Drug Start: 10-07-2024 take 1 capsule by mouth twice daily as needed for pain celecoxib (CeleBREX) 200 MG capsule Indications: Musculoskeletal chest pain Take 1 capsule (200 mg) by mouth 2 (two) times a day as needed for mild pain Take with food 60 capsule 3 10/07/2024 Active codeine phosphate 2 mg/ml / guaiFENesin 20 mg/ml oral solution (16 sources) Opioid Agonist Start: 09-15-2024 take 10 mL by mouth every six hours as needed for cough and dyspnea and dyspnea guaiFENesin-codeine (Robitussin-AC) 100-10 MG/5ML syrup Indications: Shortness of breath Take 10 mL by mouth every 6 (six) hours if needed for cough 250 mL 1 09/15/2024 Active Start: 11-29-2023 End: 09-13-2024 take 10 mL by mouth every six hours as needed for cough and dyspnea and dyspnea guaiFENesin-codeine (Robitussin-AC) 100-10 MG/5ML syrup Indications: Shortness of breath Take 10 mL by mouth every 6 (six) hours if needed for cough 250 mL 1 04/14/2024 09/13/2024 Discontinued (Reorder) doxazosin 8 mg oral tablet (20 sources) alpha-Adrenergic Sony Start: 08-07-2024 take 1 tablet by mouth at bedtime doxazosin (Cardura) 8 MG tablet Indications: Benign prostatic hyperplasia without lower urinary tract symptoms TAKE 1 TABLET BY MOUTH AT BEDTIME 30 tablet 5 08/07/2024 Active Start: 02-04-2024 take 1 tablet by thu th at bedtime doxazosin (Cardura) 8 MG tablet Indications: Benign prostatic hyperplasia without lower urinary tract symptoms TAKE 1 TABLET BY MOUTH AT BEDTIME 30 tablet 5 02/04/2024 Active Start: 08-10-2021 take 8 mg by mouth o nce daily at bedtime Doxazosin Active 8 MG PO Daily at bedtime August 10, 2021 1:00am Doxazosin Mesyla te Active finasteride 5 mg oral tablet (6 sources) 5-alpha Reductase Inhibitor Start: 08-10-2021 End: 04-01-2024 take 1 tablet by mouth in the morning finasteride (Proscar) 5 MG tablet Take 1 tablet by mouth in the morning. 10/15/2022 Active furosemide 40 mg oral tablet (14 sources) Loop Diuretic Start: 03-11-2024 take 1 tablet by mouth once daily furosemide (Lasix) 40 MG tablet Indications: Localized edema TAKE 1 TABLET BY MOUTH DAILY 30 tablet 5 03/11/2024 Active 12 hr guaiFENesin 1200 mg / pseudoephedrine hydrochloride 120 mg extended release oral tablet (14 sources) alpha-Adrenergic Agonist Start: 05-19-2024 take 120-1200 mg by mouth every twelve hours as needed Mucinex D Max Strength 120-1200 MG tablet sustained-release 12 hour Indications: Allergic rhinitis due to pollen TAKE 1 TABLET BY MOUTH TWICE DAILY NEEDED 60 tablet 2 05/19/2024 Active Start: 01-23-2024 take 120-1200 mg by mouth every twelve hours as needed Mucinex D Max Strength 120-1200 MG tablet sustained-release 12 hour Indications: Allergic rhinitis due to pollen TAKE 1 TABLET BY MOUTH TWICE DAILY NEEDED 60 tablet 2 01/23/2024 Active hydroCHLOROthiazide 12.5 mg / losartan potassium 50 mg oral tablet (16 sources) Thiazide Diuretic, Angiotensin 2 Receptor Sony Start: 07-17-2024 take 1 tablet by mouth once daily losartan-hydroCHLOROthiazide (Hyzaar) 50-12.5 MG tablet Indications: Essential hypertension, benign (CMS/HCC) TAKE 1 TABLET BY MOUTH DAILY 90 tablet 3 07/17/2024 Active Start: 08-10-2021 take 1 tablet by thu th once daily losartan-hydroCHLOROthiazide (Hyzaar) 50-12.5 MG tablet Indications: Essential hypertension, benign (CMS/HCC) TAKE 1 TABLET BY MOUTH DAILY 90 tablet 3 07/31/2023 Active hydrOXYzine hydrochloride 25 mg oral tablet (14 sources) Antihistamine Start: 06-11-2024 take 1 tablet by mouth four times daily as needed hydrOXYzine HCl (Atarax) 25 MG tablet Indications: Urticaria TAKE 1 TABLET BY MOUTH FOUR TIMES DAILY NEEDED FOR ITCHING 60 tablet 5 06/11/2024 Active Start: 01-14-2024 take 1 tablet by thu th four times daily as needed hydrOXYzine HCl (Atarax) 25 MG tablet Indications: Urticaria Take 1 tablet (25 mg) by mouth 4 (four) times a day as needed for itching 60 tablet 5 01/14/2024 Active lidocaine 0.05 mg/mg medicated patch (7 sources) Antiarrhythmic, Amide Local Anesthetic Start: 08-14-2024 End: 09-01-2024 apply 1 dose transdermal route every twelve hours lidocaine (Lidoderm) 5 % patch Indications: Musculoskeletal chest pain Apply 1 patch over 12 hours topically Daily Apply to painful area 12 hours per day, remove for 12 hours. 30 patch 5 09/01/2024 Active Start: 08-10-2021 apply 1 dose topically once da rickey Lidocaine Active 3 PATCH TOPICAL Daily August 10, 2021 1:00am losartin (6 sources) losartin HTZ Act gerson losartin Active meclizine hydrochloride 25 mg oral tablet (6 sources) Antiemetic Start: 08-14-2024 take 1 tablet by mouth four times daily as needed for dizziness meclizine (Antivert) 25 MG tablet Indications: Vertigo Take 1 tablet (25 mg) by mouth 4 (four) times a day as needed for dizziness 60 tablet 3 08/14/2024 Active Start: 08-10-2021 take 25 mg by mouth once daily Meclizine Active 25 MG PO Daily August 10, 2021 1:00am meloxicam 15 mg oral tablet (17 sources) Nonsteroidal Anti-inflammatory Drug Start: 04-01-2024 take 1 tablet by mouth once daily at mealtime meloxicam (Mobic) 15 MG tablet Indications: DDD (degenerative disc disease), lumbar Take 1 tablet (15 mg) by mouth Daily Take with food 90 tablet 3 04/01/2024 Active Meloxicam Not-Ta harman Meloxicam Active morphine sulfate 15 mg oral tablet (20 sources) Opioid Agonist Start: 02-12-2024 End: 11-28-2024 take 1 tablet by mouth four times daily as needed for pain morphine (MSIR) 15 MG tablet Indications: Other chest pain Take 1 tablet (15 mg) by mouth 4 (four) times a day as needed for moderate pain or severe pain 120 tablet 10/29/2024 11/28/2024 Active Start: 08-10-2021 take 15 mg by mouth four times daily Morphine Active 15 MG PO Four times daily August 10, 2021 1:00am omeprazole 40 mg delayed release oral capsule (14 sources) Proton Pump Inhibitor Start: 05-15-2023 take 1 capsule by mouth in the morning omeprazole (PriLOSEC) [address] capsule Take 1 capsule by mouth in the morning and 1 capsule before bedtime. 05/15/2023 Active ondansetron 4 mg disintegrating oral tablet (14 sources) Serotonin-3 Receptor Antagonist Start: 06-05-2024 ondansetron ODT (Zofran-ODT) 4 MG disintegrating tablet Indications: Chronic gastric ulcer without hemorrhage or perforation DISSOLVE 1 (ONE) TABLET ON THE TONGUE EVERY 6 HOURS NEEDED 30 tablet 1 06/05/2024 Active Start: 02-04-2024 ondansetron OD T (Zofran-ODT) 4 MG disintegrating tablet Indications: Chronic gastric ulcer without hemorrhage or perforation DISSOLVE 1 (ONE) TABLET ON THE TONGUE EVERY 6 HOURS NEEDED 30 tablet 1 02/04/2024 Active sildenafil 20 mg oral tablet (14 sources) Phosphodiesterase 5 Inhibitor Start: 05-13-2024 take 2 tablets by mouth once daily sildenafil (Revatio) 20 MG tablet Indications: Benign prostatic hyperplasia without lower urinary tract symptoms TAKE 2 TABLETS BY MOUTH DAILY 60 tablet 5 05/13/2024 Active Start: 06-18-2023 take 2 tablets by mo uth once daily sildenafil (Revatio) 20 MG tablet Indications: Benign prostatic hyperplasia without lower urinary tract symptoms TAKE 2 TABLETS BY MOUTH DAILY 60 tablet 5 06/18/2023 Active Simvastatin (6 sources) HMG-CoA Reductase Inhibitor Simvastatin Active sucralfate 1000 mg oral tablet (16 sources) Aluminum Complex Start: 02-26-2024 take 1 tablet by mouth four times daily sucralfate (Carafate) 1 g tablet Indications: Chronic gastric ulcer without hemorrhage or perforation TAKE 1 TABLET BY MOUTH FOUR TIMES DAILY 120 tablet 5 02/26/2024 Active Start: 08-10-2021 take 1 g by mouth fo ur times daily Sucralfate Active 1 GM PO Four times daily August 10, 2021 1:00am SUMAtriptan 100 mg oral tablet (16 sources) Serotonin-1b and Serotonin-1d Receptor Agonist Start: 01-23-2024 SUMAtriptan (Imitrex ) 100 MG tablet Indications: Chronic migraine without aura, not intractable, without status migrainosus (CMS/HCC) TAKE 1 TABLET BY MOUTH at the onset OF headache, may repeat in 2 (TWO) HOURS one time 9 tablet 5 01/23/2024 Active Start: 08-10-2021 take 100 mg by mouth once johnnie y Sumatriptan Succinate Active 100 MG PO Daily August 10, 2021 1:00am tadalafil 10 mg oral tablet (17 sources) Phosphodiesterase 5 Inhibitor Start: 08-10-2021 End: 06-05-2024 take 1 tablet by mouth once daily tadalafil (Cialis) 10 MG tablet Indications: Erectile dysfunction due to arterial insufficiency Take 1 tablet (10 mg) by mouth Daily 10 tablet 3 06/05/2024 Active tiZANidine 4 mg oral tablet (20 sources) Central alpha-2 Adrenergic Agonist Start: 06-02-2024 take 1 tablet by mouth three times daily as needed tiZANidine (Zanaflex) 4 MG tablet Indications: Low back pain TAKE 1 TABLET BY MOUTH THREE TIMES DAILY NEEDED 90 tablet 3 06/02/2024 Active Start: 01-14-2024 take 1 tablet by thu th three times daily as needed tiZANidine (Zanaflex) 4 MG tablet Indications: Low back pain TAKE 1 TABLET BY MOUTH THREE TIMES DAILY NEEDED 90 tablet 3 01/14/2024 Active Start: 08-10-2021 take 4 mg by mouth o nce daily at bedtime Tizanidine Active 4 MG PO Daily at bedtime August 10, 2021 1:00am take 1 tablet by thu th every eight hours Zanaflex 4 MG 1 tablet as needed Orally Three times a day Active valACYclovir 1000 mg oral tablet (16 sources) Herpesvirus Nucleoside Analog DNA Polymerase Inhibitor, Herpes Simplex Virus Nucleoside Analog DNA Polymerase Inhibitor, Herpes Zoster Virus Nucleoside Analog DNA Polymerase Inhibitor Start: 08-08-2024 take 1 tablet by mouth three times daily at bedtime valACYclovir (Valtrex) 1 g tablet Indications: Herpes zoster without complications TAKE 1 TABLET BY MOUTH THREE TIMES DAILY (IN THE MORNING, IN THE EVENING and AT BEDTIME) 21 tablet 08/08/2024 Active Start: 12-24-2023 take 1 tablet by thu th in the morning, then take 1 tablet by mouth in the evening, then take 1 tablet by mouth at bedtime valACYclovir (Valtrex) 1 g tablet Indications: Herpes zoster without complications TAKE 1 TABLET BY MOUTH IN THE MORNING, then ONE TABLET BY MOUTH IN THE EVENING, then ONE TABLET BY MOUTH BEFORE bedtime 21 tablet 12/24/2023 Active Start: 08-10-2021 take 1000 mg by mout h once daily Valacyclovir Active 1000 MG PO Daily August 10, 2021 1:00am Completed/Discontinued Medications Medication Drug Class(es) Dates Sig (Normalized) Sig (Original) cephalexin 500 mg oral capsule (2 sources) Cephalosporin Antibacterial Start: 08-11-2021 take 1 capsule by mouth every eight hours Cephalexin 500 MG 1 capsule Orally every 8 hrs for 2 days Jul, Not-Taking oxaprozin 600 mg oral tablet (8 sources) Nonsteroidal Anti-inflammatory Drug Start: 11-20-2023 End: 04-01-2024 take 1 tablet by mouth twice daily oxaprozin (Daypro) 600 MG tablet Indications: Low back pain TAKE 1 TABLET BY MOUTH TWICE DAILY 60 tablet 5 11/20/2023 04/01/2024 Discontinued Start: 08-10-2021 take 600 mg by mouth twice daily Oxaprozin Active 600 MG PO Twice daily August 10, 2021 1:00am Start: 08-10-2021 End: 08-10-2021 Oxaprozin Discontinued MG TA BLET August 10, 2021 1:00am August 10, 2021 10:21am Problems Active Problems Problem Classification Problem Date Documented Date Episodic/Chronic Anxiety disorders (14 sources) Generalized anxiety disorder; Translations: [Generalized anxiety disorder] Onset: 2023 2023 Chronic Conditions associated with dizziness or vertigo (1 source) Vertigo; Translations: [Dizziness and giddiness] 08-14-2024 Episodic Deficiency and other anemia (1 source) Anemia, unspecified; Translations: [Anemia, unspecified] Onset: 11-09-2023 Episodic Disorders of lipid metabolism (14 sources) Dyslipidemia; Translations: [Hyperlipidemia, unspecified] Onset: 2023 2023 Chronic Essential hypertension (16 sources) Benign essential hypertension; Translations: [Essential (primary) hypertension] Onset: 2023 2023 Chronic Gastroduodenal ulcer (except hemorrhage) (16 sources) Chronic gastric ulcer without hemorrhage AND without perforation; Translations: [Chronic gastric ulcer without hemorrhage or perforation] Onset: 2023 2023 Chronic Headache; including migraine (14 sources) Migraine without aura, not refractory ; Translations: [Migraine without aura, not intractable, with status migrainosus] Onset: 2023 2023 Chronic Nonspecific chest pain (20 sources) Chest pain; Translations: [Other chest pain] Onset: 2023 05-08-2024 Episodic Other connective tissue disease (1 source) Neuralgia and neuritis, unspecified; Translations: [Neuralgia and neuritis, unspecified] Onset: 08-09-2018 Episodic Other lower respiratory disease (2 sources) Dyspnea; Translations: [Shortness of breath] 04-14-2024 Episodic Other male genital disorders (15 sources) Erectile dysfunction co-occurrent and due to arterial insufficiency; Translations: [Erectile dysfunction due to arterial insufficiency] Onset: 2023 2023 Chronic Other nervous system disorders (1 source) Other chronic pain; Translations: [Other chronic pain G89.29] Onset: 05-01-2021 Resolved: 05-01-2021 Chronic Other non-traumatic joint disorders (1 source) Pain in left hip; Translations: [PAIN IN LEFT HIP] Onset: 07-26-2022 Episodic Other nutritional; endocrine; and metabolic disorders (14 sources) Porphyria; Translations: [Unspecified porphyria] Onset: 04-01-2024 04-01-2024 Chronic Other screening for suspected conditions (not mental disorders or infectious disease) (1 source) Encounter for screening for malignant neoplasm of prostate; Translations: [ENC SCREEN MALIG NEOPLASM PROSTATE] Onset: 07-26-2022 Episodic Other upper respiratory disease (14 sources) Allergic rhinitis due to pollen; Translations: [Allergic rhinitis due to pollen] Onset: 2023 2023 Chronic Other upper respiratory infections (14 sources) Chronic sinusitis, unspecified; Translations: [Chronic rhinitis] Onset: 2023 2023 Chronic Spondylosis; intervertebral disc disorders; other back problems (16 sources) Degeneration of lumbar intervertebral disc; Translations: [DDD (degenerative disc disease), lumbar] Onset: 2023 2023 Chronic Past or Other Problems Problem Classification Problem Date Documented Date Episodic/Chronic Immunizations and screening for infectious disease (1 source) Contact with and (suspected) exposure to other viral communicable diseases; Translations: [Contact with and (suspected) exposure to other viral communicable diseases Z20.828] Onset: 04-13-2021 Resolved: 04-13-2021 Episodic Other aftercare (1 source) Other terminal supervisor (current) drug therapy; Translations: [OTH NURSING HOME CURRENT DRUG THERAPY] Onset: 08-02-2021 Episodic Other non-traumatic joint disorders (4 sources) Pain in left elbow; Translations: [PAIN IN LEFT ELBOW] Onset: 07-31-2021 Episodic Other upper respiratory infections (1 source) Acute upper respiratory infection, unspecified; Translations: [Viral upper respiratory illness J06.9] Onset: 04-13-2021 Resolved: 04-13-2021 Episodic Residual codes; unclassified (2 sources) Other specified postprocedural states Onset: 08-11-2021 Resolved: 08-22-2021 Episodic Residual codes; unclassified (16 sources) Bilateral lower limb edema; Translations: [Localized edema] Onset: 2023 2023 Episodic Residual codes; unclassified (14 sources) FH: Porphyria; Translations: [Family history of other endocrine, nutritional and metabolic diseases] Onset: 2023 2023 Episodic Sprains and strains (3 sources) Strain [...] wo/w conon 2023 MR abdomen wo/w con [facility] [place] [address] [place] [address] MRI Report Signed Patient: Carlton William MR#: [id number] : 1970 Acct:[id number] Age/Sex: 53 / M ADM Date: 11/09/23 Loc: Room: Type: [facility] Attending Dr: Landy Torres MD Copies to: [...] Topher Lucio M.D.11/09/2023 6:31 PM Dictation Location: [place] [address] Transcribed By: [facility] 11/09/231830 Dictated By: Topher Lucio II, MD 11/09/231815 Signed By: 11/09/231830 Normal [facility] XR KUBon 11-09-2023 XR KUB [facility] [place] [address] XRay Report Signed Patient: Carlton William MR#: Timothy [id number] : 1970 Acct:[id number] Age/Sex: 53 / M ADM Date: 11/09/23 Loc: Room: Type: [facility] Attending Dr: Landy Torres MD Copies to: [...] Topher Lucio M.D.11/09/2023 5:58 PM Dictation Location: [place] [address] Transcribed By: [facility] 11/09/231757 Dictated By: Topher Lucio II, MD 11/09/231754 Signed By: 11/09/231757 Normal [facility] 08-20-2023 L Specimen: [id number] Received: 08/21/23 Status: PALLAVI Zaman Num: [id number] Spec Type: Surgical Subm Dr: Demetri Magaña DPM, MS Tissues: A Bone Fragments - Other than Path Fracture (LT CALCANEAL SPUR) Procedures: HE, Gross/Micro L3, Decalcification Age/ Patient Sex Location Account Attending Physician Cartlon William 52/M LABELL [id number] Demetri Magaña DPM, MS SPEC NUM: [id number] RECD: 08/21/23 STATUS: PALLAVI ZAMAN NUM: [id number] EDMAR: 08/20/[address]: Demetri Magaña DPM, MS ENTERED: 08/21/[address]: Yari,Ene SPEC TYPE: Surgical DEPT: KAR HOLLOWAY ORDERED: [...] surface of the bone is yellow-soriano, trabecular. Global Program Director are submitted following decalcification in one cassette labeled A1. CPT Codes 80555, 28720 Specimen: [id number] Received: 08/21/23 Status: PALLAVI Zaman Num: [id number] Spec Type: Surgical Subm Dr: Demetri Magaña,FIONA, MS Tissues: A Bone Fragments - Other than Path Fracture (LT CALCANEAL SPUR) Procedures: Lary BOWER/Michelle L3, Decalcification Patient: Carlton William [id number] (Continued) Signed (signature on file) Elle Whitfield MD 08/24/23 1611 Normal [facility] TESTOSTERONE, TOTALon 2022 Testosterone [Mass/Vol] 685 ng/dL Normal 264-916 [facility] Comment on above: Result Comment: Adul t male reference interval is based on a population of healthy nonobese males (BMI <30) between 19 and 39 years old. nayeli Mix.al. JCEM 2017,102;1911-3251. PMID: [id number]. Performed By: #### L IPID, BMP, LIVER, TSH #### [facility] [address] [place] [address] Dr. Jinny Whitfield CBC AUTO DIFFon 07-22-2022 BASO # 0.0 103/ul Normal 0.0-0.1 [facility] Comment on above: Performed By: #### C BC #### [facility] [address] [place] [address] Dr. Jinny Whitfield Basophils/100 WBC (Bld) 0.4 % Normal 0.2-2.0 [facility] Comment on above: Performed By: #### C BC #### [facility] [address] [place] [address] Dr. Jinny Whitfield EO # 0.0 103/ul Normal 0.0-0.7 [facility] Comment on above: Performed By: #### C BC #### [facility] [address] [place] [address] Dr. Jinny Whitfield Eosinophils/100 WBC (Bld) 0.5 % Critically low 0.9-7.0 [facility] Comment on above: Performed By: #### C BC #### [facility] [address] [place] [address] Dr. Jinny Whitfield Erythrocyte distribution width (RBC) [Ratio] 12.8 % Normal 11.0-15.0 [facility] Comment on above: Performed By: #### C BC #### [facility] [address] [place] [address] Dr. Jinny Whitfield Hematocrit (Bld) [Volume fraction] 36.5 % Critically low 42.0-54.0 [facility] Comment on above: Performed By: #### C BC #### [facility] [address] [place] [address] Dr. Jinny Whitfield Hemoglobin (Bld) [Mass/Vol] 13.3 g/dL Critically low 14.0-18.0 [facility] Comment on above: Performed By: #### C BC #### [facility] [address] [place] [address] Dr. Jinny Whitfield IG # 0.03 10e3/ul Normal 0.00-0.03 [facility] Comment on above: Performed By: #### C BC #### [facility] [address] [place] [address] Dr. Jinny Whitfield IG % 0.5 % Normal 0.0-0.5 [facility] Comment on above: Performed By: #### C BC #### [facility] [address] [place] [address] Dr. Jinny Whitfield LYMPH # 1.3 103/ul Normal 1.2-3.8 [facility] Comment on above: Performed By: #### C BC #### [facility] [address] [place] [address] Dr. Jinny Whitfield Lymphocytes/100 WBC (Bld) 22.3 % Normal 20.5-60.0 [facility] Comment on above: Performed By: #### C BC #### [facility] [address] [place] [address] Dr. Jinny Whitfield MANUAL DIFF REQ NO Normal [facility] Comment on above: Performed By: #### C BC #### [facility] [address] [place] [address] Dr. Jinny Whitfield MCH (RBC) [Entitic mass] 30.7 pg Normal 25.9-34.0 [facility] Comment on above: Performed By: #### C BC #### [facility] [address] [place] [address] Dr. Jinny Whitfield MCHC (RBC) [Mass/Vol] 36.4 g/dL Critically high 29.9-35.2 [facility] Comment on above: Performed By: #### C BC #### [facility] [address] [place] [address] Dr. Jinny Whitfield MCV (RBC) [Entitic vol] 84.3 fL Normal 80.0-94.0 [facility] Comment on above: Performed By: #### C BC #### [facility] [address] [place] [address] Dr. Jinny Whitfield MONO # 0.3 103/ul Normal 0.3-0.8 [facility] Comment on above: Performed By: #### C BC #### [facility] [address] [place] [address] Dr. Jinny Whitfield Monocytes/100 WBC (Bld) 5.9 % Normal 1.7-12.0 [facility] Comment on above: Performed By: #### C BC #### [facility] [address] [place] [address] Dr. Jinny Whitfield NEUT # 3.9 103/ul Normal 1.4-6.5 [facility] Comment on above: Performed By: #### C BC #### [facility] [address] [place] [address] Dr. Jinny Whitfield Neutrophils/100 WBC (Bld) 70.4 % Normal 43.0-75.0 [facility] Comment on above: Performed By: #### C BC #### [facility] [address] [place] [address] Dr. Jinny Whitfield Platelet mean volume (Bld) [Entitic vol] 8.8 fL Critically low 9.5-13.5 [facility] Comment on above: Performed By: #### C BC #### [facility] [address] [place] [address] Dr. Jinny Whitfield PLT 317 103/ul Normal 150-450 [facility] Comment on above: Performed By: #### C BC #### [facility] [address] [place] [address] Dr. Jinny Whitfield RBC 4.33 106/ul Critically low 4.70-6.10 [facility] Comment on above: Performed By: #### C BC #### [facility] [address] [place] [address] Dr. Jinny Whitfield WBC 5.6 103/ul Normal 4.0-11.0 [facility] Comment on above: Performed By: #### C BC #### [facility] [address] [address] [address] Jinny Whitfield GLYCOHEMOGLOBIN A1Con 2022 ADA RECOMMENDATION SEE BELOW Normal [facility] Comment on above: Result Comment: ADA RECOMMENDED LIMIT 4.0 - 6.0 ADA THERAPEUTIC TARGET < 7.0 ACTION SUGGESTED > 7.0 Performed By: #### A 1C #### [facility] [address] [place] [address] Dr. Jinny Whitfield Glucose [Mass/Vol] 117 mg/dL Normal [facility] Comment on above: Performed By: #### A 1C #### [facility] [address] [place] [address] Dr. Jinny Whitfield HbA1c (Bld) [Mass fraction] 5.7 % Normal 4.5-6.2 [facility] Comment on above: Performed By: #### A 1C #### [facility] [address] [place] [address] Dr. Jinny Whitfield LIPID PROFILEon 07-22-2022 CHOL-HDL RATIO NORM SEE BELOW Normal [facility] Comment on above: Result Comment: 3.3 - 4.4 LOW RISK 4.4 - 7.1 AVERAGE RISK 7.1 - 11.0 MODERATE RISK >11.0 HIGH RISK Performed By: #### L IPID, BMP, LIVER, TSH #### [facility] [address] [place] [address] Dr. Jinny Whitfield Cholesterol [Mass/Vol] 168 mg/dL Normal <=200 [facility] Comment on above: Performed By: #### L IPID, BMP, LIVER, TSH #### [facility] [address] [place] [address] Dr. iJnny Whitfield Cholesterol in HDL [Mass/Vol] 46 mg/dL Normal 40-60 [facility] Comment on above: Performed By: #### L IPID, BMP, LIVER, TSH #### [facility] [address] [place] [address] Dr. Jinny Whitfield Cholesterol in LDL [Mass/Vol] 102.8 mg/dL Normal [facility] Comment on above: Performed By: #### L IPID, BMP, LIVER, TSH #### [facility] [address] [address] [address] Jinny Whitfield Cholesterol.total/ Cholesterol in HDL [Mass ratio] 3.7 {ratio} Normal [facility] Comment on above: Performed By: #### L IPID, BMP, LIVER, TSH #### [facility] [address] [address] [address] Jinny Whitfield HDL NORMAL > or = 60 mg/dl - LO W CARDIOVASCULAR RISK <40 mg/dl - HIGH CARDIOVASCULAR RISK Normal [facility] Comment on above: Performed By: #### L IPID, BMP, LIVER, TSH #### [facility] [address] [address] [address] Jinny Whitfield LDL CALC NORMAL SEE BELOW Normal [facility] Comment on above: Result Comment: <100 mg/dl OPTIMAL 100 - 129 mg/dl NEAR OR ABOVE OPTIMAL 130 - 159 mg/dl BORDERLINE HIGH 160 - 189 mg/dl HIGH >190 mg/dl VERY HIGH Performed By: #### L IPID, BMP, LIVER, TSH #### [facility] [address] [address] [address] iJnny Whitfield Triglyceride [Mass/Vol] 96 mg/dL Normal <=150 [facility] Comment on above: Performed By: #### L IPID, BMP, LIVER, TSH #### [facility] [address] [address] [address] Jinny Whitfield VLDL CALC 19.2 mg/dL Normal [facility] Comment on above: Performed By: #### L IPID, BMP, LIVER, TSH #### [facility] [address] [address] [address] Jinny Whitfield LIVER PROFILEon 07-22-2022 Albumin [Mass/Vol] 4.2 g/dL Normal 3.4-5.0 [facility] Comment on above: Performed By: #### L IPID, BMP, LIVER, TSH #### [facility] [address] [address] [address] Jinny Whitfield Albumin/Globulin [Mass ratio] 1.2 {ratio} Normal [facility] Comment on above: Performed By: #### L IPID, BMP, LIVER, TSH #### [facility] [address] [address] [address] Jinny Whitfield ALP [Catalytic activity/Vol] 83 U/L Normal 46-116 [facility] Comment on above: Performed By: #### L IPID, BMP, LIVER, TSH #### [facility] [address] [address] [address] Jinny Whitfield ALT [Catalytic activity/Vol] 28 U/L Normal 16-63 [facility] Comment on above: Performed By: #### L IPID, BMP, LIVER, TSH #### [facility] [address] [place] [address] Dr. Jinny Whitfield AST [Catalytic activity/Vol] 24 U/L Normal 15-37 [facility] Comment on above: Performed By: #### L IPID, BMP, LIVER, TSH #### [facility] [address] [place] [address] Dr. Jinny Whitfield BILI, CONJUGATED 0.1 mg/dL Normal 0.0-0.2 [facility] Comment on above: Performed By: #### L IPID, BMP, LIVER, TSH #### [facility] [address] [place] [address] Dr. Jinny Whitfield Bilirubin [Mass/Vol] 0.4 mg/dL Normal 0.2-1.0 [facility] Comment on above: Performed By: #### L IPID, BMP, LIVER, TSH #### [facility] [address] [place] [address] Dr. Jinny Whitfield Globulin (S) [Mass/Vol] 3.4 g/dL Normal [facility] Comment on above: Performed By: #### L IPID, BMP, LIVER, TSH #### [facility] [address] [place] [address] Dr. Jinny Whitfield Protein [Mass/Vol] 7.6 g/dL Normal 6.4-8.2 [facility] Comment on above: Performed By: #### L IPID, BMP, LIVER, TSH #### [facility] [address] [place] [address] Dr. Jinny Whitfield PROF CHEM 8 (BAS METB)on Anion gap [Moles/Vol] 11.7 mmol/L Normal [facility] Comment on above: Performed By: #### L IPID, BMP, LIVER, TSH #### [facility] [address] [place] [address] Dr. Jinny Whitfield Calcium [Mass/Vol] 8.9 mg/dL Normal 8.5-10.1 [facility] Comment on above: Performed By: #### L IPID, BMP, LIVER, TSH #### [facility] [address] [address] [address] Jinny Whitfield Chloride [Moles/Vol] 102 mmol/L Normal 98-107 [facility] Comment on above: Performed By: #### L IPID, BMP, LIVER, TSH #### [facility] [address] [place] [address] Dr. Jinny Whitfield CO2 [Moles/Vol] 30.2 mmol/L Normal 21.0-32.0 [facility] Comment on above: Performed By: #### L IPID, BMP, LIVER, TSH #### [facility] [address] [place] [address] Dr. Jinny Whitfield Creatinine [Mass/Vol] 0.86 mg/dL Normal 0.70-1.30 [facility] Comment on above: Performed By: #### L IPID, BMP, LIVER, TSH #### [facility] [address] [place] [address] Dr. Jinny Whitfield EGFR-AF SCOTTISH >60 Normal >=[address] [facility] Comment on above: Performed By: #### L IPID, BMP, LIVER, TSH #### [facility] [address] [place] [address] Dr. Jinny Whitfield EGFR-NON AF SCOTTISH >60 Normal >=60 [facility] Comment on above: Performed By: #### L IPID, BMP, LIVER, TSH #### [facility] [address] [place] [address] Dr. Jinny Whitfield Glucose [Mass/Vol] 96 mg/dL Normal 74-106 [facility] Comment on above: Performed By: #### L IPID, BMP, LIVER, TSH #### [facility] [address] [place] [address] Dr. Jinny Whitfield Potassium [Moles/Vol] 3.9 mmol/L Normal 3.5-5.1 [facility] Comment on above: Performed By: #### L IPID, BMP, LIVER, TSH #### [facility] [address] [address] [address] Jinny Whitfield Sodium [Moles/Vol] 140 mmol/L Normal 136-145 [facility] Comment on above: Performed By: #### L IPID, BMP, LIVER, TSH #### [facility] [address] [place] [address] Dr. Jinny Whitfield Urea nitrogen [Mass/Vol] 18.0 mg/dL Normal 7.0-18.0 [facility] Comment on above: Performed By: #### L IPID, BMP, LIVER, TSH #### [facility] [address] [place] [address] Dr. Jinny Whitfield Urea nitrogen/Creatinin e [Mass ratio] 20.9 mg/mg Normal [facility] Comment on above: Performed By: #### L IPID, BMP, LIVER, TSH #### [facility] [address] [place] [address] Dr. Jinny Whitfield TSHon 07-22-2022 TSH 0.701 uIU/mL Normal 0.358-3.[address] [facility] Comment on above: Performed By: #### L IPID, BMP, LIVER, TSH #### [facility] [address] [place] [address] Dr. Jinny Whitfield XR HUMERUS LT MIN [...] by: MIL MAGANA Date: 2021-07-31 17:51 Normal [facility] [employer] Quick Testingon 2020 Result Negative [employer] Other Established Visit (Neurosurg kiran)on 08-09-2018 Established Visit (Neurosurgery) Chief Complaint Patient is being seen for a follow-up Neurosurgical visit. 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 Battery changed in November 2016 from [email or web address] to [employer], with initially some relief, but no longer. [...] Vital Signs Recorded: 09Aug2018 01:42PM Heart Rate79 Mulmudngwiy44 Zqlihtaa187 Qrqaeviin33 Bswhcx585 lb BMI Mfppiznkzh10.59 BSA Calculated2.13 Physical Exam incisions well healed, [...] Aug 09 2018 3:24PM EST (Author) Normal [employer] Coding Summary.on 12-20-2017 Coding Summary. 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 Hewas subsequently referred to [facility] where he saw Dr. Cordova replaced [...] and followup as needed.Robles Becker M.D.lkrDictated: 12/14/2017 #[id number]: 12/19/2017 #[id number]: Santos Campbell M.D.Robles Becker M.D. Normal [facility] Comment on above: Result Comment: Elec tronically Signed By: Rosita CAPUTO, Robles Holliday\.br\Date and Time Signed: 12/20/17 16:22 EDT Coding Summary.on 05-22-2017 Coding Summary. 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 The current [employer] [...] Category 1-Negative Recommendation: Normal interval follow-up Normal [facility] US Breast Unilateral Rt Comp leteon 05-21-2017 INR Coag RelTime (Bld) Exam Date/Time:05/21/2017 14:19 ESTReason for Exam:Breast painReportPLEASE REFER TO THE MAMMOGRAM REPORT. FINAL REPORT Dictated: 05/21/2017 6:26 pm Ky Heath M.D. Signed (Electronic Signature): 05/21/2017 6:26 pm Signed by: Ky Heath M.D. Transcribed by: RAUL Technologist: DIONISIO [facility] Vital Signs Date Time Vital Sign Value Performing Clinician Facility 04-01-2024 15:34-0400 Body height 177.8 cm Augusto Lazcano MD Work Phone: [facility] 04-01-2024 15:34-0400 Body mass index (BMI) [Ratio] 32.28 kg/m2 Augusto Lazcano MD Work Phone: [facility] 04-01-2024 15:34-0400 Body temperature 97.5 [degF] Augusto Lazcano MD Work Phone: [facility] 04-01-2024 15:34-0400 Body weight 102.06 kg Augusto Lazcano MD Work Phone: [facility] 04-01-2024 15:34-0400 Diastolic blood pressure 78 mm[Hg] Augusto Lazcano MD Work Phone: [facility] 04-01-2024 15:34-0400 Heart rate 92 /min Augusto Lazcano MD Work Phone: [facility] 04-01-2024 15:34-0400 Respiratory rate 18 /min Augusto Lazcano MD Work Phone: [facility] [employer] 04-01-2024 15:34-0400 SaO2% (BldA) [Mass fraction] 97 % Augusto Lazcano MD Work Phone: [facility] 04-01-2024 15:34-0400 Systolic blood pressure 134 mm[Hg] Augusto Lazcano MD Work Phone: [facility] 08-22-2021 14:30-0500 Body height 179.07 cm Gianluca Olexa Other [employer] Other 08-22-2021 14:30-0500 Body mass index (BMI) [Ratio] 31.68 kg/m2 Gianluca Olexa Other [employer] Other 08-22-2021 14:30-0500 Body weight 101.61 kg Gianluca Olexa Other [employer] Other 08-09-2021 10:45-0500 Body height 179.07 cm Gianluca Olexa Other [employer] Other 08-09-2021 10:45-0500 Body mass index (BMI) [Ratio] 31.54 kg/m2 Gianluca Olexa Other [employer] Other 08-09-2021 10:45-0500 Body weight 101.15 kg Gianluca Olexa Other [employer] Other 08-02-2021 10:30-0500 Body height 179.07 cm Gianluca Olexa Other [employer] Other 08-02-2021 10:30-0500 Body mass index (BMI) [Ratio] 30.98 kg/m2 Gianluca Olexa Other [employer] Other 08-02-2021 10:30-0500 Body weight 99.34 kg Gianluca Olexa Other [employer] Other 05-01-2021 13:55-0400 Body height 179.07 cm Yaneth Horton Other [employer] Other 05-01-2021 13:55-0400 Body mass index (BMI) [Ratio] 30.98 kg/m2 Yaneth Gonzalezmond Other [employer] Other 05-01-2021 13:55-0400 Body temperature 98.6 [degF] Yaneth Horton Other [employer] Other 05-01-2021 13:55-0400 Body weight 99.34 kg Yaneth Gonzalezmond Other [employer] Other 05-01-2021 13:55-0400 Diastolic blood pressure 90 mm[Hg] Yaneth Horton Other [employer] Other 05-01-2021 13:55-0400 Respiratory rate 18 /min Yaneth Horton Other [employer] Other 05-01-2021 13:55-0400 SaO2% (BldA) [Mass fraction] 98 % Yaneth Horton Other [employer] Other 05-01-2021 13:55-0400 Systolic blood pressure 118 mm[Hg] Yaneth Sol Other [employer] Other 04-13-2021 11:15-0400 Body height 179.07 cm Yaneth Gonzalezmond Other [employer] Other 04-13-2021 11:15-0400 Body mass index (BMI) [Ratio] 30.41 kg/m2 Yaneth Horton Other [employer] Other 04-13-2021 11:15-0400 Body temperature 99.3 [degF] Yaneth Horton Other [employer] Other 04-13-2021 11:15-0400 Body weight 97.52 kg Yaneth Horton Other [employer] Other 04-13-2021 11:15-0400 Respiratory rate 18 /min Yaneth Horton Other [employer] Other 04-13-2021 11:15-0400 SaO2% (BldA) [Mass fraction] 97 % Yaneth Horton Other [employer] Other Encounters Encounter Date Encounter Type Care Provider Facility Start: 10-28-2024 End: 10-29-2024 Refill Augusto Lazcano MD Work Phone: [facility] Comment on above: Other chest pain Start: 10-07-2024 End: 10-07-2024 ambulatory AUGUSTO LAZCANO Not Available Start: 09-13-2024 End: 09-15-2024 Refill Augusto Lazcano MD Work Phone: [facility] Comment on above: Shortness of breath Start: 09-01-2024 End: 09-01-2024 Refill Augusto Lazcano MD Work Phone: [facility] Comment on above: Musculoskeletal ches t pain; Other chest pain Start: 08-14-2024 End: 08-14-2024 Telephone encounter Augusto Lazcano MD Work Phone: [facility] Comment on above: Med Refill Start: 08-05-2024 End: 08-05-2024 Refill Augusto Lazcano MD Work Phone: [facility] Comment on above: Other chest pain Start: 07-03-2024 End: 07-03-2024 Refill Augusto Lazcano MD Work Phone: [facility] Comment on above: Other chest pain Start: 06-05-2024 End: 06-05-2024 Refill Augusto Lazcano MD Work Phone: [facility] Comment on above: Erectile dysfunction due to arterial insufficiency (Primary Dx); Other chest pain Start: 05-08-2024 End: 05-08-2024 Refill Augusto Lazcano MD Work Phone: [facility] Comment on above: Other chest pain Start: 04-14-2024 End: 04-14-2024 Refill Augusto Lazcano MD Work Phone: [facility] Comment on above: Shortness of breath Start: 04-11-2024 End: 04-11-2024 Refill Augusto Lazcano MD Work Phone: [facility] Comment on above: Other chest pain Start: 04-01-2024 End: 04-01-2024 Office outpatient visit 25 minutes Augusto Lazcano MD Work Phone: [facility] Comment on above: Benign essential hyp ertension (CMS/HCC) (Primary Dx); Musculoskeletal chest pain; Bilateral leg edema; Chronic gastric ulcer without hemorrhage and without perforation; DDD (degenerative disc disease), lumbar; Porphyria, unspecified porphyria type (CMS/HCC) Start: 04-01-2024 End: 04-01-2024 ambulatory AUGUSTO LAZCANO Not Available Start: 04-01-2024 End: 04-01-2024 Bamboo flowsheet Augusto Lazcano MD Work Phone: [facility] Start: 04-01-2024 End: 04-01-2024 Bamboo flowsheet Augusto Lazcano MD Work Phone: [facility] Start: 03-14-2024 End: 03-14-2024 Refill Augusto Lazcano MD Work Phone: [facility] Comment on above: Other chest pain Start: 11-09-2023 End: 11-09-2023 ambulatory Landy Melissa Facility:[facility] Start: 11-09-2023 End: 11-09-2023 ambulatory MD Augusto Lazcano Work Phone: [facility] Work Phone: Start: 11-09-2023 End: 11-09-2023 Patient encounter procedure MD Augusto Lazcano Work Phone: [facility] [place] Work Phone: Start: 2023 Patient encounter procedure Augusto Lazcano MD Work Phone: [facility] Start: 08-20-2023 End: 08-20-2023 ambulatory Demetri Magaña Facility:[facility] Start: 08-20-2023 End: 08-20-2023 ambulatory DPTimothy Magaña Work Phone: [facility] Work Phone: Start: 08-20-2023 End: 08-20-2023 Departed Referred DPTimothy Magaña Work Phone: [facility] Start: 07-26-2022 Encounter for genera l adult medical examination without abnormal findings DR AUGUSTO LAZCANO [facility] Start: 07-22-2022 End: 07-23-[address] AUGUSTO LAZCANO Facility:[facility] Start: 07-22-2022 End: 07-23-2022 Encounter for general adult medical examination without abnormal findings DR AUGUSTO LAZCANO Facility:[facility] Start: 08-22-2021 End: 08-22-2021 ambulatory Gianluca Olexa Other [employer] Other Start: 08-22-2021 Postop follow up vis it related to original px Gianluca Olexa [facility] Start: 08-11-2021 End: 08-11-2021 ambulatory Gianluca Olexa Other [employer] Other Start: 08-11-2021 Telephone encounter Gianluca Salazarxa [facility] Start: 08-09-2021 End: 08-09-2021 ambulatory Gianluca Olexa Other [employer] Other Start: 08-09-2021 Encounter for other preprocedural examination Gianluca Olexa [facility] Start: 08-09-2021 Office outpatient vi sit 25 minutes Gianluca Olexa [facility] Start: 08-02-2021 End: 08-02-2021 ambulatory Gianluca Olexa Other [employer] Other Start: 08-02-2021 Office outpatient ne w 45 minutes Gianluca Olexa [facility] Start: 07-31-2021 End: 07-31-[address] AUGUSTO LAZCANO Facility: Start: 05-01-2021 Office outpatient vi sit 15 minutes Yaneth Horton [facility] Start: 04-13-2021 (URG) Urgent Care Visit Yaneth holliday [facility] Start: 08-09-2018 Patient encounter procedure RADHA FERRO Facility:[facility] Start: 08-09-2018 Encounter for other preprocedural examination RADHA FERRO [facility] Start: 12-14-2017 End: 12-15-2017 Ambulatory Robles Becker Facility[facility] Start: 05-21-2017 End: 05-22-2017 Ambulatory [id number] EDUARDO LAZCANO Facility:[facility] Procedures Date Procedure Procedure Detail Performing Clinician Start: 11-09-2023 Diagnostic radiograp hy of abdomen MD Augusto Lazcano Work Phone: Start: 11-09-2023 MRI of abdomen with contrast MD Augusto Lazcano Work Phone: Start: 07-22-[address] AUGUSTO OLIVERA Comment on above: Performed By: #### [facility] #### [facility] [address] [place] [address] Dr. Jinny Whitfield Start: 01-11-2016 Colonoscopy Augusto clayton MD Work Phone: Plan of Treatment Date Care Activity Detail Author Start: 01-10-2026 Screening for malign ant neoplasm of colon [facility] Start: 01-13-2025 End: 01-13-2025 Patient encounter procedure 01/13/2025 3:00 PM EDT [facility] [address] [place] [phone] Augusto Lazcano MD [address] [place] [phone] [facility] Start: 10-07-2024 End: 10-07-2024 Patient encounter procedure 10/07/2024 3:00 PM EDT Office Visit [facility] [address] [place] [phone] Augusto Lazcano MD [address] [place] [phone] [facility] Start: 04-01-2024 End: 04-01-2024 Patient encounter procedure [facility] Comment on above: Arrived Start: 03-16-2024 Influenza vaccination Influenza Vacc ine (#1) [facility] Start: 1970 Screening for malign ant neoplasm of colon [facility] Immunizations Immunization Date Immunization Notes Care Provider Fa cili 06-14-2023 influenza virus vaccine, unspecified formulation Augusto Lazcano MD Work Phone: [facility] 06-21-2021 COVID-19 mRNA, Comirnaty (Pfizer) DPM Demetri Magaña Work Phone: [facility] 05-01-2021 Toradol per 15 mg Yaneth Dym ond Other [employer] Other 09-28-2020 COVID-19 mRNA, Comirnaty (Pfizer) DPM Demetri Magaña Work Phone: [facility] 09-07-2020 COVID-19 mRNA, [employer] ([employer]) DPM Demetri Magaña Work Phone: [facility] Payers Date Payer Category Payer Self-pay [id number] 2023 Blue Cross Blue Shield [id number] 2023 Unknown BCBS BCBS xxxxxx [id number] 2023-Present [phone] [address] [place] [address] [id number] 2023 Unknown [id number] 2023 Unknown [id number] 2017 Unknown [id number] 1971 Unknown [id number] 56 1971 Unknown [id number] 93 1971 Unknown [id number] 93 1971 Unknown [id number] 259 1971 Unknown [id number] 259 1959 Blue Cross Blue Shield [id number] 1959 Unknown [id number] Unknown [id number] 31 Unknown [id number] 31 Social History Date Type Detail Facility Start: 04-01-2024 End: 10-07-2024 Sex Assigned At [facility] [employer] Other Start: 08-11-2021 End: 08-29-2023 Tobacco smoking status NHIS Never smoked tobacco (finding) [facility] Start: 1970 Sex Assigned At Male F [facility] Start: 04-01-2024 End: 10-07-2024 History of Social function [facility] Start: 1970 Sex assigned at Not on file N [facility] Medical Equipment Procedure Code Equipment Code Equipment Origin al Text Equipment Identifier Dates Repair, tendon Orthopaedic bone screw, bioabsorbable [id number] [facility] Start: 08-11-2021 Clinical Notes 04-13-2021 to 08-14-2024 Telephone Encounter - URIEL GAONA - 08/14/2024 8:26 AM ESTTelephone Encounter - URIEL GAONA - 08/14/2024 8:26 AM Bebe Lazcano MD - 04/01/2024 3:57 PM EDT Note Date & Type Note Facility 08-14-2024 Telephone encount er Note [facility] called requesting a prescription for meclizine, and lidoderm patches. clm [facility] 08-14-2024 Miscellaneous Notes Formattin g of this note might be different from the original. [facility] called requesting a prescription for meclizine, and lidoderm patches. clm documented in this encounter [facility] 04-01-2024 History of Presen t illness Narrative Associated Problem(s): Porphyria ([facility]/HCC) Follow with hematology. Associated Problem(s): Musculoskeletal chest pain Pain unchanged and use morphine PRN. Associated Problem(s): Chronic gastric ulcer without hemorrhage and without perforation No symptoms and continue omeprazole. Associated Problem(s): Bilateral leg edema Edema controlled with lasix and continue. Elevate legs PRN. Associated Problem(s): Benign essential hypertension (CMS/HCC) BP controlled and monitor PRN. Images from the original note were not included. Subjective Patient ID: Carlton William is a 53 y.o. male who presents for Follow-up (6m /Lump under left arm). Follow up HTN, chest pain, edema, and GERD. Patient doing well today. Checking BP PRN and typically controlled. BP normal today. Taking medication daily and tolerating without side effects. Chest pain unchanged. Continues to have pain with movement, reaching, or lifting. Pain in front of chest and pain with deep breath. Symptoms worse with season changes and increase in cough. Using pain medication PRN and helps. Able to work and stay active. Edema controlled with medication. Mild swelling at end of day and if on feet a lot. Edema improved in am and with elevation. GERD controlled with omeprazole. Denies epigastric pain or burning and not waking up with symptoms. Review of Systems Constitutional: Negative for fatigue. Respiratory: Negative for cough, shortness of breath and wheezing. Cardiovascular: Negative for chest pain and palpitations. Gastrointestinal: Negative for abdominal pain, diarrhea, nausea and vomiting. Genitourinary: Negative for dysuria. Objective Physical Exam Constitutional: General: He is not in acute distress. Appearance: Normal appearance. HENT: Head: Normocephalic. Right Ear: Tympanic membrane and ear canal normal. Left Ear: Tympanic membrane and ear canal normal. Eyes: Extraocular Movements: Extraocular movements intact. Pupils: Pupils are equal, round, and reactive to light. Cardiovascular: Rate and Rhythm: Normal rate and regular rhythm. Heart sounds: No murmur heard. No friction rub. No gallop. Pulmonary: Breath sounds: Normal breath sounds. No wheezing, rhonchi or rales. Abdominal: General: Bowel sounds are normal. There is no distension. Palpations: Abdomen is soft. Tenderness: There is no abdominal tenderness. There is no guarding or rebound. Musculoskeletal: Left lower leg: No edema. Neurological: Mental Status: He is alert. Assessment/Plan Problem List Items Addressed This Visit Benign essential hypertension (CMS/HCC) - Primary BP controlled and monitor PRN. Bilateral leg edema Edema controlled with lasix and continue. Elevate legs PRN. Chronic gastric ulcer without hemorrhage and without perforation No symptoms and continue omeprazole. Musculoskeletal chest pain Pain unchanged and use morphine PRN. DDD (degenerative disc disease), lumbar Relevant Medications meloxicam (Mobic) 15 MG tablet Porphyria (CMS/HCC) Follow with hematology. documented in this encounter [facility] 07-22-2022 Note PROCEDURE: XR HIP LT 2 3V WO PELVIS HISTORY: Pain of left hip joint ; chronic COMPARISON: None. FINDINGS: BONES:No fracture, acute abnormality, or significant arthropathy. SOFT TISSUES:No visible soft tissue swelling. EFFUSION:None visible. OTHER: Negative. IMPRESSION: 1. No acute bone abnormality. 2. No significant degenerative joint disease. Electronically authenticated by: CIARA CROOK Date: 2022-07-22 19:07 [facility] 08-22-2021 Evaluation note Encounter Date Diagnosis Assessment Notes Aug, Other specified postprocedural states (ICD-10 -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
[2024-10-31 13:31] LABS: Estimated Average Glucose 108 mg/dL; Glycohemoglobin A1C 5.4 % (4.5-6.2)
[2024-10-31 13:35] LABS: Basophils Percent Auto 0.4 % (0.2-2.0); Eosinophils Percent Auto 0.3 % (0.9-7.0); Hematocrit 38.2 % (42.0-54.0); Hemoglobin 12.8 g/dL (14.0-18.0); Immature Granulocytes Abs Auto 0.02 10^3/uL (0.00-0.03); Immature Granulocytes Pct Auto 0.3 % (0.0-0.5); Lymphocytes Absolute Auto 1.4 10^3/uL (1.2-3.8); Lymphocytes Percent Auto 18.6 % (20.5-60.0); Mean Corpuscular HGB Conc 33.5 g/dL (29.9-35.2); Mean Corpuscular Hemoglobin 30.7 pg (25.9-34.0); Mean Corpuscular Volume 91.6 fL (80.0-94.0); Mean Platelet Volume 10.1 fL (9.5-13.5); Monocytes Absolute Auto 0.4 10^3/uL (0.3-0.8); Monocytes Percent Auto 5.3 % (1.7-12.0); Neutrophils Absolute Auto 5.6 10^3/uL (1.4-6.5); Neutrophils Percent Auto 75.1 % (43.0-75.0); Platelet Count 270 10^3/uL (150-450); Red Blood Count 4.17 10^6/uL (4.70-6.10); Red Cell Distribution Width 13.4 % (11.0-15.0); White Blood Count 7.4 10^3/uL (4.0-11.0)
[2024-10-31 14:03] LABS: Alanine Aminotransferase 48 U/L (16-63); Albumin Globulin Ratio 1.2; Albumin Level 3.9 g/dL (3.4-5.0); Alkaline Phosphatase 142 U/L (46-116); Anion Gap 9.7; Aspartate Amino Transferase 26 U/L (15-37); BUN Creatinine Ratio 17.9; Bilirubin Direct 0.1 mg/dL (0.0-0.2); Bilirubin Total 0.4 mg/dL (0.2-1.0); Calcium 9.2 mg/dL (8.5-10.1); Carbon Dioxide 30.3 mmol/L (21.0-32.0); Chloride 102 mmol/L (98-107); Chol HDL Ratio 4.9; Cholesterol 197 mg/dL (<=200); Estimated GFR (African America >60 (>=60 mL/min/1.73m^2); Estimated GFR (Non-African Ame >60 (>=60 mL/min/1.73m^2); Globulin 3.3 g/dL; Glucose 108 mg/dL (74-106); HDL Cholesterol 40 mg/dL (40-60); Sodium 138 mmol/L (136-145); Thyroid Stimulating Hormone 1.039 uIU/mL (0.358-3.740); Total Protein 7.2 g/dL (6.4-8.2); Triglycerides 272 mg/dL (<=150); VLDL CHOLESTEROL 54.4 mg/dL
[2024-10-31 14:06] LABS: Prostate Specific Antigen Scrn 0.99 ng/mL (<=4.00)
== END 2024-10-31 12:39 | disposition home or self-care (01) ==
LOC: LAB 12:41
PROVIDERS: PCP Family Medicine; Visit Provider Family Medicine
DX: Z00.00 Encounter for general adult medical examination without abnormal findings (principal)
CPT/HCPCS: 36415; 80048; 80061; 80076; 83036; 84443; 85025; G0103

== ENCOUNTER 2025-05-15 12:36 | Outpatient (OUT) | payer BC, SELFPAY ==
--- OUTSIDE RECORDS SUMMARY | 2023-11-20 11:15 | XMS_ITS ---
Author Organization The [facility] in [place] Address [address] [place] [address] Care Team Providers Care Track Laborer Name Role Phone Julia CAPUTO, Augusto Primary Care Provider Unavailab [place] Unavailable [phone] REASON FOR VISIT MD Encounters Encounter Location Date Provider Diagnosis [facility] Oncology [facility] [place] [address] 11/20/2023 Landy Torres Plan Of Treatment No Information Progress Notes * Carlton BRUNO ADOB: (54 yo M)Acc No.[id number]:11/20/2023 UNLOCKED PROGRESS NOTE Progress Notes Patient: Carlton HAWK :?Landy Torres M.D.:1970???Age:53 Y ???Sex:MaleDate:11/20/2023hone:[phone]:[address] [place], [place] [id number]:Augusto Dumont MD Subjective: * Chief Complaints: * 1 . MD. * Medical History: Objective: * Vitals: Assessment: Plan: * Treatment: * * Electronic signature of Landy Torres MD, [id number] on 05/15/2025 at 12:12 PM EDTSign off status: PendingVisit Status:?VOICEMSG (Voice) * Provider: Dell Torres M.D. Date: 0 11/20/2023 Generated for Printing/Faxing/eTransmitting on:?05/15/2025 12:12 PM EDT
--- OUTSIDE RECORDS SUMMARY | 2025-05-15 12:42 | XMS_ITS | Clinical Summary ---
Author Organization [employer] [facility] Address [id number] [address] [place] [address] Care Team Providers Care Barrow Worker Helper Name Role Phone Augusto Dumont MD Primary Care Provider [phone] Allergies No known active allergies Medications MedicationSigDispense QuantityRefillsLast FilledStart DateEnd DateStatus losartan-hydroCHLOROthiazide (HYZAAR) 50-12.5 mg per tablet Take 1 tablet by mouth in the morning.Active doxazosin (CARDURA) 8 mg tablet Take 1 tablet (8 mg total) by mouth nightly.Active finasteride (PROSCAR) 5 mg tablet Take 1 tablet (5 mg total) by mouth in the morning.Active sucralfate (CARAFATE) 1 gram tablet Take 1 tablet (1 g total) by mouth in the morning and 1 tablet (1 g total) at noon and 1 tablet (1 g total) in the evening and 1 tablet (1 g total) before bedtime.Active tiZANidine (ZANAFLEX) 4 mg tablet Take 1 tablet (4 mg total) by mouth every 6 (six) hours as needed for muscle spasms.Active Immunizations ImmunizationAdministration DatesNext DueCOVID-19, mRNA, LNP-S, PF, 30mcg/0.3mL Dose09/28/2020,09/07/2020 Social History Tobacco UseTypesPacks/DayYears UsedDateSmoking Tobacco: NeverSmokeless Tobacco: NeverAlcohol UseStandard Drinks/WeekCommentsYes0 (1 standard drink = 0.6 oz pure alcohol)ChildcareAnswerDate SgfmgbhiLztqisywoTkmnbrm93/12/2019EmploymentAnswer Date EaqsfweoZxtqgkjolxPuapsft36/12/2019Purpose - LifeAnswerDate RecordedPurpose and direction in izklCwloujl06/11/2021ex and Gender InformationValueDate RecordedSex Assigned at BirthNot on fileLegal FrrAgsu3602/18/2015 11:32 AM EDT Gender IdentityNot on fileSexual OrientationNot on file Last Filed Vital Signs Vital SignReadingTime TakenCommentsBlood Tvoibtyo366/9610/01/2022 2:45 PM EDT Yhhhw985010/01/2022 5:00 PM TVXNsfsmuxsgbj33.7 ??C (98.1 ??F)10/01/2022 2:28 PM EDTRespiratory Dips473910/01/2022 5:00 PM EDTOxygen Svkrnpwitp78%10/01/2022 5:00 PM EDTInhaled Oxygen Concentration--Ogvaej15.5 kg (215 lb)10/01/2022 2:28 PM EDT Fmamoi786.1 cm (5' 10.5 )06/06/2021 1:46 PM ESTBody Mass Index30.41108/06/2020 1:46 PM EST Plan of Treatment Health MaintenanceDue DateLast DoneCommentsDepression Cmimovpqr26/13/1984Tobacco Cgreofonb75/13/1984DTaP,Tdap and Td Vaccines (1 - Tdap)09/25/1990Zoster (Shingles) Vaccine (2 of 2)dult BMI Zsypnekol98/19/2024 10/01/2022OVID-19 Vaccine ( season), 01/10/2022, 06/21/2021, Additional history existsInfluenza Tgktpna28/, 06/21/2021, 05/01/2019, Additional history exists Medical Devices Not on file Insurance Care Teams Team MemberRelationshipSpecialtyStart DateEnd Date Augusto Dumont MD [facility]
--- OUTSIDE RECORDS SUMMARY | 2025-05-15 12:42 | XMS_ITS | Patient Health Record ---
Author Organization [facility] [place] Address [address] [place] [address] Care Team Providers Care Director Trial Name Role Phone Augusto Dumont MD Primary Care Provider Unavailab le Allergies No Known Allergies Reason For Referral No Information Medications Medication SIG (Take, Route, Frequency, Duration) Notes Start Date End Date Status Losartan Potassium-HCTZ 50-12.5 MG 1 tablet Oral ly Once a day ActiveMorphine Sulfate 15 MGOral; Duration: 30 DaysActiveDoxazosin Mesylate 8 MG 1 tablet Orally Once a dayActiveFinasteride 5 MG1 tablet Orally Once a dayActive Sucralfate 1 GM1 tablet on an empty stomach Orally Twice a dayActiveZanaflex 4 MG1 tablet as needed Orally Three times a dayActive Social History Tobacco Use: Social History Observation Description Date Details (start date - stop date) Never Smoker NA - NA Tobacco Use/Smoking Question Answer Notes Patient is a nonsmoker Problems Problem Type SNOMED Code ICD Code Onset Dates Problem Status W/U Status Risk Notes Problem Hypertrophic scar (34207224) Hypertrophic scar (L91.0) ActiveconfirmedProblemAcquired deformity of left lower leg (disorder) (806455434650141)Other specified acquired deformities of left lower leg (M21.862)ActiveconfirmedProblemAchilles bursitis (286308134)Achilles tendinitis, left leg (M76.62)ActiveconfirmedProblemPain in left foot (639125085618657)Pain in left foot (M79.672)ActiveconfirmedProblemStrain of left Achilles tendon (55679659294333741)Strain of left Achilles tendon, sequela (S86.012S)Active confirmed Plan Of Treatment Pending Test Test Name Order Date CBC AUTO DIFF 10/23/2023 FERRITIN 10/23/2023 IRON AND TIBC 10/23/2023 LAB TESTING 10/23/2023 LAB TESTING 10/23/2023 ARGELIA and PE, Serum 10/23/2023 Insurance Providers Payer Name Payer Address Payer Phone Subscriber Number Group Number Insured Name Patient Relationship to Insured Coverage Start Date Coverage End Date BCBS OUT OF STATE [address] [place] [address] [id number] Carlton William Self - patient is the insured BCBS OUT OF STATEPO [address] [place] [id number] Williamf - patient is the [id number] 2023 Medical (General) History Medical History History ICD Code arthritis high blood pressureSurgical History Surgery Date(Month/Year) deviated septum cholecystectomybicept tendon ruptureneural spinal cord stimulatorHospitalization History Reason Date(Month/Year) see above
--- OUTSIDE RECORDS SUMMARY | 2025-05-15 12:42 | XMS_ITS | Clinical Summary ---
Author Organization [facility] Address [address] 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
--- OUTSIDE RECORDS SUMMARY | 2025-05-15 12:42 | XMS_ITS | Clinical Summary ---
Author Organization [facility] Address [address] [place] [address] Care Team Providers Care Histology Technologist Name Role Phone Augusto Dumont MD Primary Care Provider [phone] Allergies No known active allergies Medications MedicationSigDispense QuantityRefillsLast FilledStart DateEnd DateStatus furosemide (Lasix) 40 MG tablet Indications:Localized edemaTAKE 1 TABLET BY MOUTH DAILY 30 tablet 504Active sildenafil (Revatio) 20 MG tablet Indications:Benign prostatic hyperplasia without lower urinary tract symptoms TAKE 2 TABLETS BY MOUTH DAILY 60 tablet 4Active losartan-hydroCHLOROthiazide (Hyzaar) 50-12.5 MG tablet Indications:Essential hypertension, benignTAKE 1 TABLET BY MOUTH DAILY 90 tablet 5Active valACYclovir (Valtrex) 1 g tablet Indications:Herpes zoster without complicationsTAKE 1 TABLET BY MOUTH THREE TIMES DAILY (IN THE MORNING, IN THE EVENING and AT BEDTIME) 21 tablet 5Active meclizine (Antivert) 25 MG tablet Indications:VertigoTake 1 tablet (25 mg) by mouth 4 (four) times a day as needed for dizziness 60 tablet 5Active lidocaine (Lidoderm) 5 % patch Indications:Musculoskeletal chest painApply 1 patch over 12 hours topically Daily Apply to painful area 12 hours per day, remove for 12 hours. 30 patch 5Active guaiFENesin-codeine (Robitussin-AC) 100-10 MG/5ML syrup Indications:Shortness of breathTake 10 mL by mouth every 6 (six) hours if needed for cough 250 mL 5Active tiZANidine (Zanaflex) 4 MG tablet Indications:Low back painTAKE 1 TABLET BY MOUTH THREE TIMES DAILY NEEDED 90 tablet 3055Active pseudoephedrine-guaiFENesin ER (Mucinex D Max Strength) 120-1200 MG tablet sustained-release 12 hour Indications:Allergic rhinitis due to pollenTake 1 tablet by mouth 2 (two) times a day as needed (Congestion) 60 tablet 5Active oxaprozin (Daypro) 600 MG tablet Indications:Low back painTake 1 tablet (600 mg) by mouth in the morning and 1 tablet (600 mg) before bedtime. 60 tablet 5Active SUMAtriptan (Imitrex) 100 MG tablet Indications:Chronic migraine without aura, not intractable, without status migrainosusTake 1 tablet (100 mg) by mouth 1 (one) time if needed for migraine for up to 1 dose 9 tablet 5Active tadalafil (Cialis) 10 MG tablet Indications:Erectile dysfunction due to arterial insufficiencyTake 1 tablet (10 mg) by mouth Daily 10 tablet 5Active ondansetron ODT (Zofran-ODT) 4 MG disintegrating tablet Indications:Chronic gastric ulcer without hemorrhage or perforationTake 1 tablet (4 mg) by mouth every 6 (six) hours if needed for nausea or vomiting 30 tablet 5Active sucralfate (Carafate) 1 g tablet Indications:Chronic gastric ulcer without hemorrhage or perforationTake 1 tablet (1 g) by mouth in the morning and 1 tablet (1 g) at noon and 1 tablet (1 g) in the evening and 1 tablet (1 g) before bedtime. 120 tablet 5Active albuterol HFA 90 mcg/act inhaler Indications:SOB (shortness of breath)Inhale 2 puffs every 4 (four) hours if needed for wheezing or shortness of breath 18 g 5Active omeprazole (PriLOSEC) [address] capsule Indications:Gastroesophageal reflux disease with esophagitis without hemorrhage Take 1 capsule (40 mg) by mouth in the morning and 1 capsule (40 mg) before bedtime. 60 capsule 5Active doxazosin (Cardura) 8 MG tablet Indications:Benign prostatic hyperplasia without lower urinary tract symptoms Take 1 tablet (8 mg) by mouth at bedtime 30 tablet 5Active hydrOXYzine HCl (Atarax) 25 MG tablet Indications:UrticariaTake 1 tablet (25 mg) by mouth every 6 (six) hours if needed for itching 60 tablet 505Active Active Problems ProblemNoted DateDiagnosed Guillermo garcia, initial /02/2025 Assessment & Plan (01/14/2025 1:40 PM EDT): Tightness on exam and pain appears muscular. Start prednisone and continue zanaflex PRN. Use heat or massage PRN. Odvlcdflr91/17/2024 Assessment & Plan (04/01/2024 3:57 PM EDT): Follow with hematology. Annual physical exam2023 Assessment & Plan (10/07/2024 4:51 PM EDT): Due for labs. Discussed proper diet and regular aerobic exercise. Need aerobic exercise 5-6 days a week for 30 minutes at a time. Smaller portions and limit total calories. Colonoscopy every 10 years. Tetanus every 10 years. Advised not to smoke. Assessment & Plan (2023 12:10 PM EDT): Due for labs. Discussed proper diet and regular aerobic exercise. Need aerobic exercise 5-6 days a week for 30 minutes at a time. Smaller portions and limit total calories. Colonoscopy every 10 years. Tetanus every 10 years. Advised not to smoke. Discussed daily Aspirin therapy. Benign essential srdtjmfytxud08/13/2024 Assessment & Plan (01/14/2025 1:40 PM EDT): BP and monitor PRN. Discussed DASH diet. Assessment & Plan (10/07/2024 4:51 PM EDT): BP elevated and need to monitor PRN. Discussed DASH diet. Assessment & Plan (04/01/2024 3:55 PM EDT): BP controlled and monitor PRN. Assessment & Plan (2023 12:10 PM EDT): BP controlled and monitor PRN. Bilateral leg edema2023 Assessment & Plan (01/14/2025 1:40 PM EDT): Edema controlled with lasix and continue. Elevate legs PRN. Assessment & Plan (04/01/2024 3:55 PM EDT): Edema controlled with lasix and continue. Elevate legs PRN. Chronic gastric ulcer without hemorrhage and without ddavxtwlirq42/13/2024 Assessment & Plan (01/14/2025 1:40 PM EDT): No symptoms and continue omeprazole. Assessment & Plan (04/01/2024 3:55 PM EDT): No symptoms and continue omeprazole. Musculoskeletal chest pain2023 Assessment & Plan (01/14/2025 1:40 PM EDT): Pain unchanged and use morphine PRN. Assessment & Plan (04/01/2024 3:55 PM EDT): Pain unchanged and use morphine PRN. Migraine without aura and with status migrainosus, not lhkttuxgbpf47/13/2024 Chronic cxiaowobbdydvw28/13/2024DD (degenerative disc disease), lumbar 09/26/20237098Cnlslkaccgka75/13/2024Erectile dysfunction due to arterial ijyhcmmdrfiml98/13/2024GAD (generalized anxiety disorder)2023Seasonal allergic rhinitis due to onjlby4009/26/2023Family history of sjohzxkuc85/13/2024 Encounters DateTypeDepartmentCare UkttOsumaxshfbe74/26/2025Refill [facility] [address] [place] [address] Augusto Dumont MD Other chest pain03/08/2025Refill [facility] [address] [place] [address] Augusto Dumont MD Musculoskeletal chest pain02/18/2025Refill [facility] [address] [facility] [address] [address] Augusto Dumont MD Benign prostatic hyperplasia without lower urinary tract symptoms; Urticariafrom Last 3 Months Family History Medical HistoryRelationNameCommentsDiabetesFatherHeart diseaseFather HyperlipidemiaFatherRelationNameStatusCommentsFatherMotherAlive Social History Tobacco UseTypesPacks/DayYears UsedDateSmoking Tobacco: Never Tobacco Cessation:Counseling Given: Not Answered Sex and Gender InformationValueDate RecordedSex Assigned at BirthNot on file Legal SbbWsyg0209/27/2022 7:21 PM EDTGender IdentityNot on fileSexual Orientation Not on file Last Filed Vital Signs Vital SignReadingTime TakenCommentsBlood Chuxcvxt061/8601/14/2025 1:12 PM EDT Shayc12641/02/2025 1:12 PM WRYFxzzomzhupd42 ??C (98.6 ??F)01/14/2025 1:12 PM EDT Respiratory Nkih6399 1:12 PM EDTOxygen Zksrhrqzgq63%01/14/2025 1:12 PM EDTInhaled Oxygen Concentration--Zthegc672 kg (229 lb)01/14/2025 1:12 PM EDT Rsbguy987.8 cm (5' 10 )01/14/2025 1:12 PM EDTBody Mass Index32.8601/14/2025 1:12 PM EDT Plan of Treatment Health MaintenanceDue DateLast DoneCommentsCT Thpkxamxxdcu30/13/1972FIT-DNA 1970FIT1970FOBT1970 1839Ydnywgeozwtqk54/13/1972MMR Vaccines (1 of 1 - Standard series)09/25/1972DTaP/Tdap/Td Vaccines (1 - Tdap)09/25/1978Hepatitis B Vaccines (1 of 3 - 19+ 3-dose series)09/25/1990COVID-19 Vaccine ( season)/05/2024, 06/14/2023, 01/10/2022, Additional history exists Influenza Vaccine (#1)/05/2024, 06/14/2023, 06/09/2022, Additional history ikakxtLpyoipksfbw95/28/227511/Colorectal Cancer Screening 01/10/2026HIB VaccinesAged OutNo longer eligible based on patient's age to complete this topicHPV VaccinesAged OutNo longer eligible based on patient's age to complete this topicHepatitis A VaccinesAged OutNo longer eligible based on patient's age to complete this topicIPV VaccinesAged OutNo longer eligible based on patient's age to complete this topicMeningococcal B VaccineAged OutNo longer eligible based on patient's age to complete this topicMeningococcal VaccineAged OutNo longer eligible based on patient's age to complete this topicPneumococcal Vaccine: Pediatrics (0 to 5 Years) and At-Risk Patients (6 to 64 Years)Aged Out No longer eligible based on patient's age to complete this topicRotavirus VaccinesAged OutNo longer eligible based on patient's age to complete this topic Insurance Care Teams Team MemberRelationshipSpecialtyStart DateEnd Date Augusto Dumont MD PCP - [facility]08/29/23
--- OUTSIDE RECORDS SUMMARY | 2025-05-15 12:43 | XMS_ITS | CCD ---
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 Name Role Phone JALEESA, AUGUSTO~[id number] UNKNOWN Unavailable Unavailable NADERER, AUGUSTO~[id number] UNKNOWN Unavailable Unavailable NADERER, AUGUSTO~[phone] UNKNOWN Unavailable Unavailable NADERER, AUGUSTO~[id number] UNKNOWN Unavailable Unavailable Robles Becker Unavailable Unavailable Ky Campbell Unavailable Unavailable JALEESA, AUGUSTO~[id number] UNKNOWN Unavailable Unavailable RADHA FERRO Attending Robin casanova UNKNOWN Primary Care Unavailable Yaneth Horton Unavailable Gianluca Gonzales Unavailable JAELESA, DR AUGUSTO Sharpe Primary Care Unavailable ELZA, [...] Attending Provider MD Landy Torres Attending Provider [phone] MD Augusto Lazcano Primary Care Provider [phone] Demetri Magaña Attending Unavailable Demetri Magaña Admitting Unavailable Landy Torres Attending Unavailable Landy Torres Admitting Unavailable Augusto Lazcano Primary Care Unavailable Augusto Lazcano MD Primary Care Provider Augusto Lazcano MD Unavailable AUGUSTO LAZCANO Attending Unavailable AUGUSTO LAZCANO Attending Unavailable AUGUSTO LAZCANO Attending Unavailable Allergies Allergy ClassificationReported Allergen(s)Allergy TypeDate of OnsetReaction(s) Facility (6 sources)Sulfamethoxazole / TrimethoprimDrug AllergyEll[facility] [employer] Other (1 source)SulfamethoxazoleDrug Fltzoft47-96-8067VlbdemqbwVan [facility] (1 source)TrimethoprimDrug Qsmnnpe30-22-0899ElfatvxfiVan Wert [facility] Hospital [facility] (13 sources)AmoxicillinDrug Vcjdoiv83-02-7384EkdoEDTX [employer] Work Phone: Medications Current Medications MedicationDrug Class(es)DatesSig (Normalized)Sig (Original)acetaminophen 325 mg / oxyCODONE hydrochloride 5 mg oral tablet (2 sources)Opioid AgonistStart: 87-42-0256ixow 1 tablet by mouth every four hours as needed for painPercocet 5-325 MG 1 tablet as needed for pain Orally up to every 4 hrs for 5 days Jul, [id number] 200 actuat albuterol 0.09 mg/actuat metered dose inhaler (17 sources)beta2-Adrenergic AgonistStart: 19-67-7393abnt 2 puff(s) by inhalation every four hours for wheezingalbuterol HFA 90 mcg/act inhaler Indications: SOB (shortness of breath) Inhale 2 puffs every 4 (four) hours if needed for wheezing or shortness of breath 18 g 2 01/14/2025 ActiveStart: 25-00-2994pnlp 2 puff(s) by inhalation every four hours for wheezingalbuterol HFA 90 mcg/act inhaler Inhale 2 puffs every 4 (four) hours if needed for wheezing or shortness of breath 10/20/2022 Activecelecoxib 200 mg oral capsule (5 sources)Nonsteroidal Anti-inflammatory DrugStart: 10-07-2024 End: 09-27-7122yorq 1 capsule by mouth twice daily as needed for paincelecoxib (CeleBREX) 200 MG capsule Indications: Musculoskeletal chest pain Take 1 capsule (200 mg)by mouth 2 (two) times a day as needed for mild pain Take with food 60 capsule 3 10/07/2024 12/03/2024 Discontinuedcodeine phosphate 2 mg/ml / guaiFENesin 20 mg/ml oral solution (20 sources)Opioid AgonistStart: 29-93-1998flbt 10 mL by mouth every six hours as needed for cough and dyspnea and dyspneaguaiFENesin-codeine (Robitussin-AC) 100-10 MG/5ML syrup Indications: Shortness of breath Take 10 mLby mouth every 6 (six) hours if needed for cough 250 mL 1 09/15/2024 ActiveStart: 11-29-2023 End: 46-56-5452dcdv 10 mL by mouth every six hours as needed for cough and dyspnea and dyspneaguaiFENesin-codeine (Robitussin-AC) 100-10 MG/5ML syrup Indications: Shortness of breath Take 10 mLby mouth every 6 (six) hours if needed for cough 250 mL 1 04/14/2024 09/13/2024 Discontinued (Reorder)doxazosin 8 mg oral tablet (20 sources)alpha-Adrenergic BlockerStart: 08-07-2024 End: 43-55-7452ynmk 1 tablet by mouth at bedtimedoxazosin (Cardura) 8 MG tablet Indications: Benign prostatic hyperplasia without lower urinary tract symptoms Take 1 tablet (8 mg) by mouth at bedtime 30 tablet 5 02/19/2025 ActiveStart: 57-90-4866igfm 1 tablet by mouth at bedtimedoxazosin (Cardura) 8 MG tablet Indications: Benign prostatic hyperplasia without lower urinary tract symptoms TAKE 1 TABLET BY MOUTH AT BEDTIME 30 tablet 5 02/04/2024 ActiveStart: 08-10-2021 take 8 mg by mouth once daily at bedtimeDoxazosin Active 8 MG PO Daily at bedtime August 10, 2021 1:00amDoxazosin Mesylate Activefinasteride 5 mg oral tablet (6 sources)5-alpha Reductase InhibitorStart: 08-10-2021 End: 49-03-4921cqmy 1 tablet by mouth in the morningfinasteride (Proscar) 5 MG tablet Take 1 tablet by mouth in the morning. 10/15/2022 Activefurosemide 40 mg oral tablet (20 sources)Loop DiureticStart: 23-37-4484crzc 1 tablet by mouth once daily furosemide (Lasix) 40 MG tablet Indications: Localized edema TAKE 1 TABLET BY MOUTH DAILY 30 tablet5 03/11/2024 Frojuh28 hr guaiFENesin 1200 mg / pseudoephedrine hydrochloride 120 mg extended release oral tablet (20 sources)alpha-Adrenergic AgonistStart: 05-19-2024 End: 42-82-2891sztz 120-1200 mg by mouth every twelve hours as needed pseudoephedrine-guaiFENesin ER (Mucinex D Max Strength) 120-1200 MG tablet sustained-release 12 hour Indications: Allergic rhinitis due to pollen Take 1 tablet by mouth 2 (two) times a day as needed (Congestion) 60 tablet 2 12/03/2024 ActiveStart: 63-48-0900entr 120-1200 mg by mouth every twelve hours as neededMucinex D Max Strength 120-1200 MG tablet sustained-release 12 hour Indications: Allergic rhinitis due to pollen TAKE 1 TABLET BY MOUTH TWICE DAILY NEEDED 60 tablet 2 01/23/2024 ActivehydroCHLOROthiazide 12.5 mg / losartan potassium 50 mg oral tablet (20 sources)Thiazide Diuretic, Angiotensin 2 Receptor BlockerStart: 07-17-2024 take 1 tablet by mouth once dailylosartan-hydroCHLOROthiazide (Hyzaar) 50-12.5 MG tablet Indications: Essential hypertension, benignTAKE 1 TABLET BY MOUTH DAILY 90 tablet 3 07/17/2024 ActiveStart: 55-63-6897idff 1 tablet by mouth once dailylosartan-hydroCHLOROthiazide (Hyzaar) 50-12.5 MG tablet Indications: Essential hypertension, benign(CMS/HCC) TAKE 1 TABLET BY MOUTH DAILY 90 tablet 3 07/31/2023 ActivehydrOXYzine hydrochloride 25 mg oral tablet (20 sources)AntihistamineStart: 02-50-9921cfbr 1 tablet by mouth every six hours hydrOXYzine HCl (Atarax) 25 MG tablet Indications: Urticaria Take 1 tablet (25 mg) by mouth every 6(six) hours if needed for itching 60 tablet 5 02/19/2025 ActiveStart: 06-11-2024 End: 20-22-0355ajnz 1 tablet by mouth four times daily as neededhydrOXYzine HCl (Atarax) 25 MG tablet Indications: Urticaria TAKE 1 TABLET BY MOUTH FOUR TIMES DAILY NEEDED FOR ITCHING 60 tablet 5 12/18/2024 ActiveStart: 82-07-9673lmnk 1 tablet by mouth four times daily as neededhydrOXYzine HCl (Atarax) 25 MG tablet Indications: Urticaria Take 1 tablet (25 mg) by mouth 4 (four) times a day as needed for itching 60 tablet 5 01/14/2024 Activelidocaine 0.05 mg/mg medicated patch (18 sources)Antiarrhythmic, Amide Local AnestheticStart: 08-14-2024 End: 73-53-1400srzsa 1 dose transdermal route every twelve hourslidocaine (Lidoderm) 5 % patch Indications: Musculoskeletal chest pain Apply 1 patch over 12 hours topically Daily Apply to painful area 12 hours per day, remove for 12 hours. 30 patch 5 09/01/2024 ActiveStart: 15-71-6216brjye 1 dose topically once dailyLidocaine Active 3 PATCH TOPICAL Daily August 10, 2021 1:00amlosartin (6 sources)losartin HTZ Activelosartin Activemeclizine hydrochloride 25 mg oral tablet (17 sources)AntiemeticStart: 76-95-0666rwdt 1 tablet by mouth four times daily as needed for dizzinessmeclizine (Antivert) 25 MG tablet Indications: Vertigo Take 1 tablet (25 mg) by mouth 4 (four) times a day as needed for dizziness 60 tablet 3 08/14/2024 ActiveStart: 98-12-0143aoqu 25 mg by mouth once daily Meclizine Active 25 MG PO Daily August 10, 2021 1:00ammeloxicam 15 mg oral tablet (17 sources)Nonsteroidal Anti-inflammatory DrugStart: 89-83-4741vjjr 1 tablet by mouth once daily at mealtimemeloxicam (Mobic) 15 MG tablet Indications: DDD (degenerative disc disease), lumbar Take 1 tablet (15 mg) by mouth Daily Take with food 90 tablet 3 04/01/2024 ActiveMeloxicam Not-TakingMeloxicam Active morphine sulfate 15 mg oral tablet (20 sources)Opioid AgonistStart: 03-10-2025 End: 72-21-4323uhas 1 tablet by mouth four times daily as needed for pain morphine (MSIR) 15 MG tablet Indications: Other chest pain Take 1 tablet (15 mg) by mouth 4 (four) times a day as needed for moderate pain or severe pain 120 tablet 03/10/2025 04/09/2025 ActiveStart: 02-02-2025 End: 36-51-0355pujy 1 tablet by mouth in the morning, then take 1 tablet by mouth every twelve hours at bedtimemorphine CR (MS Contin) 30 MG 12 hr tablet Indications: Musculoskeletal chest pain Take 1 tablet (30 mg) by mouth in the morning and 1 tablet (30 mg) before bedtime. Do not crush, chew, or split. 60 t ablet 03/09/2025 04/08/2025 ActiveStart: 02-12-2024 End: 67-46-3347daox 1 tablet by mouth four times daily as needed for pain morphine (MSIR) 15 MG tablet Indications: Other chest pain Take 1 tablet (15 mg) by mouth 4 (four) times a day as needed for moderate pain or severe pain 120 tablet 11/25/2024 12/25/2024 Discontinued(Reorder)Start: 72-89-5992vnkj 15 mg by mouth four times dailyMorphine Active 15 MG PO Four times daily August 10, 2021 1:00amomeprazole 40 mg delayed release oral capsule (20 sources)Proton Pump InhibitorStart: 05-15-2023 End: 15-30-4915gpmw 1 capsule by mouth in the morningomeprazole (PriLOSEC) [address] capsule Indications: Gastroesophageal reflux disease with esophagitis without hemorrhage Take 1 capsule (40 mg) by mouth in the morning and 1 capsule (40 mg) before bedtime. 60 capsule 5 02/11/2025 Activeondansetron 4 mg disintegrating oral tablet (20 sources)Serotonin-3 Receptor AntagonistStart: 06-05-2024 End: 27-84-6684fkjb 1 tablet by mouth every six hours for nauseaondansetron ODT (Zofran-ODT) 4 MG disintegrating tablet Indications: Chronic gastric ulcer without hemorrhage or perforation Take 1 tablet (4 mg) by mouth every 6 (six) hours if needed for nausea or vomiting 30 tablet 1 01/12/2025 ActiveStart: 43-73-0961ojbaexkfdgj ODT (Zofran-ODT) 4 MG disintegrating tablet Indications: Chronic gastric ulcer without hemorrhage or perforation DISSOLVE 1 (ONE) TABLET ON THE TONGUE EVERY 6 HOURS NEEDED 30 tablet 1 02/04/2024 Activeoxaprozin 600 mg oral tablet (16 sources)Nonsteroidal Anti-inflammatory DrugStart: 82-97-8362hifh 1 tablet by mouth in the morningoxaprozin (Daypro) 600 MG tablet Indications: Low back pain Take 1 tablet (600 mg) by mouth in the morning and 1 tablet (600 mg) before bedtime. 60 tablet 5 12/03/2024 ActiveStart: 11-20-2023 End: 59-01-7737rtpi 1 tablet by mouth twice dailyoxaprozin (Daypro) 600 MG tablet Indications: Low back pain TAKE 1 TABLET BY MOUTH TWICE DAILY 60 tablet 5 11/20/2023 04/01/2024 DiscontinuedStart: 59-07-9068jmsy 600 mg by mouth twice dailyOxaprozin Active 600 MG PO Twice daily August 10, 2021 1:00amStart: 08-10-2021 End: 05-34-7090Kpksakral Discontinued MG TABLET August 10, 2021 1:00am August 10, 2021 10:21ampredniSONE 50 mg oral tablet (2 sources)Start: 01-14-2025 End: 32-75-6627nwpp 1 tablet by mouth once dailypredniSONE (Deltasone) 50 MG tablet Indications: Lumbar strain, initial encounter Take 1 tablet (50mg) by mouth Daily for 6 days 6 tablet 01/14/2025 01/20/2025 Activesildenafil 20 mg oral tablet (20 sources)Phosphodiesterase 5 InhibitorStart: 62-08-1229dqsa 2 tablets by mouth once dailysildenafil (Revatio) 20 MG tablet Indications: Benign prostatic hyperplasia without lower urinary tract symptoms TAKE 2 TABLETS BY MOUTH DAILY 60 tablet 5 05/13/2024 ActiveStart: 46-10-4808zxdq 2 tablets by mouth once daily sildenafil (Revatio) 20 MG tablet Indications: Benign prostatic hyperplasia without lower urinary tract symptoms TAKE 2 TABLETS BY MOUTH DAILY 60 tablet 5 06/18/2023 ActiveSimvastatin (6 sources)HMG-CoA Reductase InhibitorSimvastatin Activesucralfate 1000 mg oral tablet (20 sources)Aluminum ComplexStart: 02-26-2024 End: 19-68-5310kvqw 1 tablet by mouth at bedtimesucralfate (Carafate) 1 g tablet Indications: Chronic gastric ulcer without hemorrhage or perforation Take 1 tablet (1 g) by mouth in the morning and 1 tablet (1 g) at noon and 1 tablet (1 g) in the evening and 1 tablet (1 g) before bedtime. 120 tablet 5 01/13/2025 ActiveStart: 85-33-3628vitw 1 g by mouth four times dailySucralfate Active 1 GM PO Four times daily August 10, 2021 1:00amSUMAtriptan 100 mg oral tablet (20 sources)Serotonin-1b and Serotonin-1d Receptor AgonistStart: 12-29-2024 SUMAtriptan (Imitrex) 100 MG tablet Indications: Chronic migraine without aura, not intractable, without status migrainosus Take 1 tablet (100 mg) by mouth 1 (one) time if needed for migraine for up to 1 dose 9 tablet 5 12/29/2024 Active Start: 01-23-2024 End: 33-70-7310QNRJtyyldmg (Imitrex) 100 MG tablet Indications: Chronic migraine without aura, not intractable, without status migrainosus TAKE 1 TABLET BY MOUTH at the onset OF headache, may repeat in 2 (TWO) HOURS one time 9 tablet 5 01/23/2024 12/28/2024 Discontinued (Reorder)Start: 42-25-7062mhnz 100 mg by mouth once dailySumatriptan Succinate Active 100 MG PO Daily August 10, 2021 1:00amtadalafil 10 mg oral tablet (20 sources)Phosphodiesterase 5 InhibitorStart: 08-10-2021 End: 47-28-9539sxlo 1 tablet by mouth once dailytadalafil (Cialis) 10 MG tablet Indications: Erectile dysfunction due to arterial insufficiency Take 1 tablet (10 mg) by mouth Daily 10 tablet 3 12/29/2024 ActivetiZANidine 4 mg oral tablet (20 sources)Central alpha-2 Adrenergic AgonistStart: 36-92-2833xkbo 1 tablet by mouth three times daily as neededtiZANidine (Zanaflex) 4 MG tablet Indications: Low back pain TAKE 1 TABLET BY MOUTH THREE TIMES DAILY NEEDED 90 tablet 3 11/24/2024 ActiveStart: 39-53-6619ngxw 1 tablet by mouth three times daily as neededtiZANidine (Zanaflex) 4 MG tablet Indications: Low back pain TAKE 1 TABLET BY MOUTH THREE TIMES DAILY NEEDED 90 tablet 3 06/02/2024 ActiveStart: 54-46-6660fbiu 1 tablet by mouth three times daily as neededtiZANidine (Zanaflex) 4 MG tablet Indications: Low back pain TAKE 1 TABLET BY MOUTH THREE TIMES DAILY NEEDED 90 tablet 3 01/14/2024 ActiveStart: 01-83-5979vgnh 4 mg by mouth once daily at bedtimeTizanidine Active 4 MG PO Daily at bedtime August 10, 2021 1:00amtake 1 tablet by mouth every eight hoursZanaflex 4 MG 1 tablet as needed Orally Three times a day ActivevalACYclovir 1000 mg oral tablet (20 sources)Herpesvirus Nucleoside Analog DNA Polymerase Inhibitor, Herpes Simplex Virus Nucleoside Analog DNA Polymerase Inhibitor, Herpes Zoster Virus Nucleoside Analog DNA Polymerase InhibitorStart: 60-57-4679vocz 1 tablet by mouth three times daily at bedtimevalACYclovir (Valtrex) 1 g tablet Indications: Herpes zoster without complications TAKE 1 TABLET BYMOUTH THREE TIMES DAILY (IN THE MORNING, IN THE EVENING and AT BEDTIME) 21 tablet 08/08/2024 ActiveStart: 84-44-6754jxgi 1 tablet by mouth in the morning, then take 1 tablet by mouth in the evening, then take 1 tablet by mouth at bedtimevalACYclovir (Valtrex) 1 g tablet Indications: Herpes zoster without complications TAKE 1 TABLET BYMOUTH IN THE MORNING, then ONE TABLET BY MOUTH IN THE EVENING, then ONE TABLET BY MOUTH BEFORE bedtime 21 tablet 12/24/2023 ActiveStart: 55-48-5877uvii 1000 mg by mouth once dailyValacyclovir Active 1000 MG PO Daily August 10, 2021 1:00am Completed/Discontinued Medications MedicationDrug Class(es)DatesSig (Normalized)Sig (Original)cephalexin 500 mg oral capsule (2 sources)Cephalosporin AntibacterialStart: 01-24-2282agnw 1 capsule by mouth every eight hoursCephalexin 500 MG 1 capsule Orally every 8 hrs for 2 days Jul, Not-TakinglevoFLOXacin 750 mg oral tablet (1 source)Quinolone AntimicrobialStart: 12-10-2024 End: 62-30-0859hwur 1 tablet by mouth once dailylevoFLOXacin (Levaquin) 750 MG tablet Indications: Upper respiratory tract infection, unspecified type Take 1 tablet (750 mg) by mouth Daily for 7 days 7 tablet 12/10/2024 12/17/2024 Problems Active Problems Problem ClassificationProblemDateDocumented DateEpisodic/ChronicAnxiety disorders (20 sources)Generalized anxiety disorder; Translations: [Generalized anxiety disorder]Onset: 319247-34-5203SyobrbmMvasjiabrr associated with dizziness or vertigo (1 source)Vertigo; Translations: [Dizziness and giddiness]15-97-5830Unfweolj Deficiency and other anemia (1 source)Anemia, unspecified; Translations: [Anemia, unspecified]Onset: 44-00-4091HxkqiwabSdpwkwfvr of lipid metabolism (20 sources)Dyslipidemia; Translations: [Hyperlipidemia, unspecified]Onset: 811718-57-4103OhhfsafAcptyvneh hypertension (20 sources)Benign essential hypertension; Translations: [Essential (primary) hypertension]Onset: 903593-71-0558NbjktqjQwjuizzruponmm ulcer (except hemorrhage) (20 sources)Chronic gastric ulcer without hemorrhage AND without perforation; Translations: [Chronic gastric ulcer without hemorrhage or perforation]Onset: 488468-87-4537YevqrszBisuthpo; including migraine (20 sources)Migraine without aura, not refractory ; Translations: [Migraine without aura, not intractable, withstatus migrainosus]Onset: 2023 91-40-7927DqyrkipAcrub connective tissue disease (1 source)Neuralgia and neuritis, unspecified; Translations: [Neuralgia and neuritis, unspecified]Onset: 20-45-4667EcojfygdOwmln lower respiratory disease (4 sources)Dyspnea; Translations: [Shortness of breath]45-17-5455JjcxqgoxPwpxe male genital disorders (20 sources)Erectile dysfunction co-occurrent and due to arterial insufficiency; Translations: [Erectile dysfunction due to arterial insufficiency]Onset: 434297-07-2386YrnyswmGfqgq nervous system disorders (1 source)Other chronic pain; Translations: [Other chronic pain G89.29]Onset: 05-01-2021 Resolved: 26-53-3920RuigycrVtsvv non-traumatic joint disorders (1 source)Pain in left hip; Translations: [PAIN IN LEFT HIP]Onset: 07-26-2022 EpisodicOther nutritional; endocrine; and metabolic disorders (20 sources)Porphyria; Translations: [Unspecified porphyria]Onset: 04-01-2024 99-80-2207TgoqylhNxbqq screening for suspected conditions (not mental disorders or infectious disease) (1 source)Encounter for screening for malignant neoplasm of prostate; Translations: [ENC SCREEN MALIG NEOPLASM PROSTATE]Onset: 86-07-7063DyrzvuekYeqtt upper respiratory disease (20 sources)Allergic rhinitis due to pollen; Translations: [Allergic rhinitis due to pollen]Onset: 465595-48-1910HdtzfibYixum upper respiratory infections (20 sources)Chronic sinusitis, unspecified; Translations: [Chronic rhinitis] Onset: 316609-36-2668IvgqkrcEqddh upper respiratory infections (2 sources)Acute upper respiratory infection, unspecified; Translations: [Upper respiratory infection]Onset: 04-13-2021 Resolved: 44-24-6870QbfphqmuRbcsyveuftb; intervertebral disc disorders; other back problems (20 sources)Degeneration of lumbar intervertebral disc; Translations: [DDD (degenerative disc disease), lumbar]Onset: hronic Spondylosis; intervertebral disc disorders; other back problems (1 source)Low back pain; Translations: [Low back pain]45-87-5342RfdvsrgkYlgvafv and strains (10 sources)Strain of muscle, fascia and tendon of other parts of biceps, left arm, initial encounter; Translations: [Strain of muscle, fascia and tendon of other parts of biceps, left arm, subsequent encounter]Onset: 08-02-2021 Resolved: 95-66-7178Lzelvprj Past or Other Problems Problem ClassificationProblemDateDocumented DateEpisodic/ChronicImmunizations and screening for infectious disease (1 source)Contact with and (suspected) exposure to other viral communicable diseases; Translations: [Contact with and (suspected) exposure to other viral communicable diseases Z20.828]Onset: 04-13-2021 Resolved: 04-86-8393JzmwqoxnDmbyvzowvvb chest pain (20 sources)Chest pain; Translations: [Other chest pain]Onset: 2023 19-16-9583KdcuylruSltmh aftercare (1 source)Other correction (current) drug therapy; Translations: [OTH LONGTERM CURRENT DRUG THERAPY]Onset: 32-28-0532YfxilmwcXcyjp non-traumatic joint disorders (4 sources)Pain in left elbow; Translations: [PAIN IN LEFT ELBOW]Onset: 89-41-1667XcrkkhegWbcpeuad codes; unclassified (2 sources)Other specified postprocedural statesOnset: 08-11-2021 Resolved: 95-88-0960UhgvlaylTkasrnkm codes; unclassified (20 sources)Bilateral lower limb edema; Translations: [Localized edema]Onset: 957265-77-1898NkxjmsahVgiftgme codes; unclassified (20 sources)FH: Porphyria; Translations: [Family history of other endocrine, nutritional and metabolic diseases]Onset: 783451-44-2686Qicchkwn Unclassified (1 source)Low back pain, unspecified M54.50; Translations: [Low back pain, unspecified M54.50]Onset: 05-01-2021 Resolved: 05-01-2021 Results Test NameValueInterpretationReference RangeFacilityMLR HEMOGLOBIN A1Con 60-56-0573Lzunpcs [Mass/Vol]108 mg/dLNONJ DdvbgmjbtvTcJ6i (Bld) [Mass fraction] 5.4 %4.5 - 6.2 %NOMS HealthcareComment on above:ADA RECOMMENDED LIMIT 4.0 - 6.0 ADA THERAPEUTIC TARGET < 7.0 ACTION SUGGESTED > 7.0 CLINISYNCNOMS HealthcareMR abdomen wo/w conon 20-00-8236LB abdomen wo/w con [facility] [place] [address] MRI Report Signed Patient: Carlton William MR#: Timothy [id number] : 1970 Acct:[id number] Age/Sex: 53 / M ADM Date: 11/09/23 Loc: MR Room: Type: [facility] Attending Dr: Landy Torres MD Copies to: [...] Topher Lucio M.D.11/09/2023 6:31 PM Dictation Location: [place] [address] Transcribed By: [facility] 11/09/231830 Dictated By: Topher Lucio II, MD 11/09/231815 Signed By: 11/09/231830[facility] GroupXR [facility] 34-79-7794[facility] [place] [address] XRay Report Signed Patient: Carlton William MR#: Timothy [id number] : 1970 Acct:[id number] Age/Sex: 53 / M ADM Date: 11/09/23 Loc: MR Room: Type: [facility] Attending Dr: Landy Torres MD Copies to: [...] Topher Lucio M.D.11/09/2023 5:58 PM Dictation Location: [place] [address] Transcribed By: [facility] 11/09/231757 Dictated By: Topher Lucio II, MD 11/09/231754 Signed By: 11/09/231757[facility] Physician GroupLon 32-95-3440TKpnpjpdc: [id number] Received: 08/21/23 Status: PALLAVI Zaman Num: [id number] Spec Type: Surgical Subm Dr: Demetri Magaña DPM, MS Tissues: A Bone Fragments - Other than Path Fracture (LT CALCANEAL SPUR) Procedures: HE, Gross/Micro L3, Decalcification Age/ Patient Sex Location Account Attending Physician Carlton William 52/M LABELL [id number] Demetri Magaña DPM, MS SPEC NUM: [id number] RECD: 08/21/23 STATUS: PALLAVI ZAMAN NUM: [id number] EDMAR: 08/20/[address]: Demetri Magaña DPM, MS ENTERED: 08/21/23 [facility] DR: Yari,Ene SPEC TYPE: Surgical DEPT: KAR [...] surface of the bone is yellow-soriano, trabecular. 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 CPT Codes 83055, 68415 Specimen: [id number] Received: 08/21/23 Status: PALLAVI Zaman Num: [id number] Spec Type: Surgical Subm Dr: Demetri Magaña,FIONA, MS Tissues: A Bone Fragments - Other than Path Fracture (LT CALCANEAL SPUR) Procedures: SATHISH, Gross/Micro L3, Decalcification Patient: Carlton William [id number] (Continued) Signed (signature on file) Chin-Ezequiel Whitfield MD 08/24/[address] [place] [address] GroupTESTOSTERONE, TOTALon 07-25-2022 Testosterone [Mass/Vol]685 ng/bRAmcmdb229-378VsdMartin Memorial HospitalComment on above:Result Comment: Adult male reference interval is based on a population of healthy nonobese males (BMI <30) between 19 and 39 years old. Dominguez et.al. JCEM 2017,102;6225-7666. PMID: [id number].Performed By: #### LIPID, BMP, LIVER, TSH #### [facility] [address] [place] [address] Dr. Jinny Joel AUTO DIFFon 12-60-2223ZZDH #0.0 103/ulNormal0.0-0.1Martin Memorial HospitalComment on above:Performed By: #### CBC #### [facility] [address] [place] [address] Dr. Jinny WhitfieldBasophils/100 WBC (Bld)0.4 %Normal0.2-2.0[facility] Comment on above:Performed By: #### CBC #### [facility] [address] [place] [address] Dr. Jinny Dickens #0.0 103/ulNormal0.0-0.7The [facility] HospitalComment on above: Performed By: #### CBC #### [facility] [address] [place] [address] Dr. Jinny Norrisosinophils/100 WBC (Bld)0.5 %Critically low0.9-7.0The [facility] HospitalComment on above:Performed By: #### CBC #### [facility] [address] [place] [address] Dr. Jinny Norrisrythrocyte distribution width (RBC) [Ratio]12.8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 examination without abnormal findingsDR AUGUSTO Sharpe NADERERFacility:B7Pxnrq: 08-22-2021 End: 07-37-3005djmivtlphwKjepoz Olexa Other [place] Other Start: 17-93-2135Mmejse follow up visit related to original pxThomas OlexaFPG [facility]icsStart: 08-11-2021 End: 11-61-9442semittyopnQzflre Olexa Other [place] Other Start: 29-47-1940Pxwaaimcs encounterThomas OlexaFPG [place] [facility]opedicsStart: 08-09-2021 End: 20-03-8494jhhfebytvgYqkuyt Olexa Other [employer] Other Start: 38-96-7556Gkkjnrldb for other preprocedural examinationThomas OlexaFPG [facility]opedicsStart: 98-01-1058Jytvza outpatient visit 25 minutesThomas OlexaFPFely Art OrthopedicsStart: 08-02-2021 End: 59-00-2268agztursbsxYjdvcf Olexa Other [facility] [employer] Other Start: 23-21-5513Mezrux outpatient new 45 minutes Gianluca OlexaFPFely Art OrthopedicsStart: 07-31-2021 End: 08-23-8431ltaesiwovjPT AUGUSTO A NADERERFacility:F4Lzdec: 11-71-6524Ullegq outpatient visit 15 minutesPamela DymondFPG [facility] Care ClydeStart: 04-13-2021 (URG) Urgent Care VisitPamela DymondFPG [facility] ClydeStart: 08-09-2018 Patient encounter procedureJENNBRUCE HOFFMAN ISMAELFacility:[facility] Start: 03-54-2199Xmgglwnja for other preprocedural examinationJENNBRUCE FERROMadison Hospital CenterStart: 12-14-2017 End: 65-28-0046UugnvmertbNxwhtn D GoldnerFacility:[facility]ENTERtart: 05-21-2017 End: 15-04-3485UhxbujspeuUXUB~[id number] UNKNOWN NADERERFacility:[facility] [place] Procedures DateProcedureProcedure DetailPerforming ClinicianStart: 57-95-0439GBG HEMOGLOBIN D3DWvluAugusto Lazcano MD Work Phone: Start: 10-55-4932Aovievrzzz radiography of abdomenMD Augusto Lazcano Work Phone: Start: 49-29-8012KYY of abdomen with contrastMD Augusto Lazcano Work Phone: Start: 76-11-5485BLD screeningDR AUGUSTO AGUILERAomment on above:Performed By: #### PSASC #### [facility] [address] [place] [address] Dr. Jinny WhitfieldStart: 59-32-2049SafrdzmuqfnJvyi Naderer MD Work Phone: Plan of Treatment DateCare ActivityDetailAuthorStart: 99-95-5762Ltvrgmwbw for malignant neoplasm of colonNOMS HealthcareStart: 07-23-2025 End: 33-96-6258Liypayu encounter jsmdddymd00/08/2026 11:15 AM EST Office Visit [facility] [address] [place] [address] Augusto Lazcano MD [address] [place] [address] [facility] FMStart: 11-91-9990Yoswawjhx vaccinationInfluenza Vaccine (#1)NOM HealthcareStart: 01-13-2025 End: 79-17-3972Rupblwf encounter ntiucjoax39/01/2025 3:00 PM EDT Office Visit [facility] [address] [place] [address] Augusto Lazcano MD [address] [place] [address] [facility] FMStart: 10-07-2024 End: 93-66-4728Ukjpyln encounter dkpgbvlde00/25/2025 3:00 PM EDT Office Visit [facility] [address] [place] [address] Augusto Lazcano MD [address] [place] [address] [facility] FMStart: 04-01-2024 End: 61-54-3907Dwwkikr encounter procedureNOMS [facility] FMComment on above:Arrived Start: 17-18-9380Vlmvnnval vaccinationInfluenza Vaccine (#1)[facility] Healthcare Start: 96-87-4154Qfrpfmxmx for malignant neoplasm of colonNOMS Healthcare Immunizations Immunization DateImmunizationNotesCare SkuvaakuBzskotmv73-35-7829injjkjsfo virus vaccine, unspecified formulationHealthsouth Rehabilitation Hospital Of [facility] Jaleesa CAPUTO Work Phone: [facility] HospitalKxmqacdpqt08-59-7344jepufbxhd virus vaccine, unspecified formulationLeny Jaleesa CAPUTO Work Phone: [facility] HospitalHpvqvpnnrc33-90-7639DLNZW-88 mRNA, Comirnaty (Pfizer)DPM Demetri Magaña Work Phone: [facility]10-17-2021Toradol per 15 mgPamela Sol Other [employer] Other [id number]-45 mRNA, Comirnaty (Pfizer)DPTimothy Mosquera Archana Work Phone: [facility]02-23-2021COVID-19 mRNA, Comirnaty (Pfizer)DPTimothy Mosquera Archana Work Phone: [facility] Payers DatePayer CategoryPayerPolicy [id number] Cross Blue Shield [id number] BCBS [id number] 2023-[facility] [phone] [address] [place] [id number] 9xgkl890-v204-3477-0523-815s67i762de57-28-4104VcfknghNFV230A3397582-34-6684 OzkiuulW0[id number] ..840.1.898874.3.579.2.356 [id number] 840.1.382834.3.57[id number] 2.16.840.1.536432.3.57[id number] 2.16.840.1.306988.3.579.2.[id number] 2.16.840.1.908695.3.579.2.[id number] 2.16.840.1.666931.3.579.2.558459-98-0184PwomUnion County General [id number] 2.16.840.0.670590.20376457-24-3894Bvbs[id number] 2.16.840.1.0021[id number] 2..840.1.740223.3.579.2.531 Social History DateTypeDetailFacilityStart: 04-01-2024 End: 57-73-0732Nfq Assigned At [facility] [employer] Other Start: 08-11-2021 End: 30-51-5184Bvduetn smoking status NHISNever smoked tobacco (finding) [facility] Hospitaltart: 83-44-4025Ixb Assigned At [facility]htart: 04-01-2024 End: 88-10-8939Wfuxypv of Social functionBRIGHAM CITY COMMUNITY [facility]PITAL HealthcareStart: 94-92-5336Ycv assigned at birthNot on [facility] Medical Equipment Procedure CodeEquipment CodeEquipment Original TextEquipment IdentifierDates Repair, tendonOrthopaedic bone screw, bioabsorbable [id number] FDAStart: 08-11-2021 Clinical Notes 04-13-2021 to 03-10-2025 Note Date & VekiZhqiYtjyfkxn96-27-2044 Telephone encounter Note* Telephone Encounter - URIEL DECKER - 03/10/2025 10:45 AM EDT Patient called [facility] pharmacy has immediate release morphine back in stock, would like to go back on the immediate release. clm [facility] Oiaxaxcyby09-74-0219 Miscellaneous Notes* Telephone Encounter - URIEL DECKER - 03/10/2025 10:45 AM EDT Patient called [facility] pharmacy has immediate release morphine back in stock, would like to go back on the immediate release. clm documented in this encounterCenterPointe HospitalXemojucdyv33-48-2239 History of Present illness Narrative* Augusto Lazcano MD - 01/14/2025 1:40 PM EDTAssociated Problem(s): Musculoskeletal chest pain Pain unchanged and use morphine PRN. * Augusto Lazcano MD - 01/14/2025 1:40 PM EDTAssociated Problem(s): Lumbar strain, initial encounter Tightness on exam and pain appears muscular. Start prednisone and continue zanaflex PRN. Use heat or massage PRN. * Augusto Lazcano MD - 01/14/2025 1:40 PM EDTAssociated Problem(s): Chronic gastric ulcer without hemorrhage and without perforation No symptoms and continue omeprazole. * Augusto Lazcano MD - 01/14/2025 1:40 PM EDTAssociated Problem(s): Bilateral leg edema Edema controlled with lasix and continue. Elevate legs PRN. * Augusto Lazcano MD - 01/14/2025 1:40 PM EDTAssociated Problem(s): Benign essential hypertension BP and monitor PRN. Discussed DASH diet. * Augusto Lazcano MD - 01/14/2025 1:00 PM EDT Images from the original note were not included. Subjective Patient ID: Carlton William is a 54 y.o. male who presents for Follow-up (Kidney pain on going for 2 days). Follow up HTN, chest pain, edema, and GERD. Patient not doing well today. C/o pain in left flank and lower back for 2-3 days. Severe tightness and spasms. Pain with movement and sitting. Constant dull ache and frequent sharp pains. Using zanaflex and mild relief. Checking BP PRN and typically controlled. BP normal today. Taking medication daily and tolerating without side effects. Chest pain unchanged. Continues to have pain with movement, reaching, or lifting. Pain in front of chest and pain with deep breath. Symptoms worse with season changes and increase in cough. Using pain medication PRNand helps. Able to work and stay active. [...] Items Addressed This Visit Benign essential hypertension - Primary BP and monitor PRN. Discussed DASH diet. Bilateral leg edema Edema controlled with lasix and continue. Elevate legs PRN. Chronic gastric ulcer without hemorrhage and without perforation No symptoms and continue omeprazole. Musculoskeletal chest pain Pain unchanged and use morphine PRN. Lumbar strain, initial encounter Tightness on exam and pain appears muscular. Start prednisone and continue zanaflex PRN. Use heat or massage PRN. Relevant Medications predniSONE (Deltasone) 50 MG tablet documented in this encounterCenterPointe HospitalVsqigtalbp37-30-1551 Telephone encounter Note* Telephone Encounter - Augusto Lazcano MD - 12/10/2024 1:13 PM EDT Script sent. If no better over next few days will need seen. MAN CenterPointe HospitalOrqexyigbq58-13-1863 Miscellaneous Notes* Telephone Encounter - Augusto Lazcano MD - 12/10/2024 1:13 PM EDT Script sent. If no better over next few days will need seen. MAN * Telephone Encounter - Uriel Decker MA - 12/10/2024 1:06 PM EDT Patient called is having a lot of ear pain, feels like there is fluid sloshing in ear, would like an antibiotic called in to pharmacy. clm documented in this encounterCenterPointe HospitalBrghsgjceg97-35-1632 Telephone encounter Note* Telephone Encounter - Uriel Decker MA - 12/10/2024 1:06 PM EDT Patient called is having a lot of ear pain, feels like there is fluid sloshing in ear, would like an antibiotic called in to pharmacy. clm [facility] Qtdaefktmg55-71-4163 Telephone encounter Note* Telephone Encounter - URIEL DECEKR - 08/14/2024 8:26 AM EST [facility] called requesting a prescription for meclizine, and lidoderm patches. clm [facility] Jbnixwkheu17-70-5282 Miscellaneous Notes* Telephone Encounter - URIEL DECKER - 08/14/2024 8:26 AM EST [facility] called requesting a prescription for meclizine, and lidoderm patches. clm documented in this encounterCenterPointe HospitalWavekerbho96-47-4857 History of Present illness Narrative* Augusto Lazcano MD - 04/01/2024 3:57 PM EDTAssociated Problem(s): Porphyria ([facility]) Follow with hematology. * Augusto Lazcano MD - 04/01/2024 3:55 PM EDTAssociated Problem(s): Musculoskeletal chest pain Pain unchanged and use morphine PRN. * Augusto Lazcano MD - 04/01/2024 3:55 PM EDTAssociated Problem(s): Chronic gastric ulcer without hemorrhage and without perforation No symptoms and continue omeprazole. * Augusto Lazcano MD - 04/01/2024 3:55 PM EDTAssociated Problem(s): Bilateral leg edema Edema controlled with lasix and continue. Elevate legs PRN. * Augusto Lazcano MD - 04/01/2024 3:55 PM EDTAssociated Problem(s): Benign essential hypertension (CMS/HCC) BP controlled and monitor PRN. * Augusto Lazcano MD - 04/01/2024 3:30 PM EDT Images from the original note were not included. Subjective Patient ID: Carlton William is a 53 y.o. male who presents for Follow-up (6m /Lump under leftarm). Follow up HTN, chest pain, edema, and GERD. Patient doing well today. Checking BP PRN and typicallycontrolled. BP normal today. Taking medication daily and [...] (CMS/HCC) Follow with hematology. documented in this encounterCenterPointe HospitalRfpbbinoql34-39-9412 NotePROCEDURE: XR HIP LT 2 3V WO PELVIS HISTORY: Pain of left hip joint ; chronic COMPARISON: None. FINDINGS: BONES:No fracture, acute abnormality, or significant arthropathy. SOFT TISSUES:No visible soft tissue swelling. EFFUSION:None visible. OTHER: Negative. IMPRESSION: 1. No acute bone abnormality. 2. No significant degenerative joint disease. Electronically authenticated by: CIARA CROOK Date: 2022-07-22 19:07[facility]02-07-2022 Evaluation note* Encounter Date Diagnosis Assessment Notes Treatment Notes Treatment Clinical Notes Aug, Other specified postprocedural s tates (ICD-10 - Z98.890) Aug,upture of left distal biceps tendon, subsequent encounter (ICD-10 - S46.212D) Radiographs reviewed with patient and . Instructed on passive flexion/extension of the elbow, as well as pronation/supination. Avoid strenuous use. Continue use of the splint for activities. Callwith questions/concerns. [place] Other 01-27-2022 Evaluation note* Encounter Date Diagnosis Assessment Notes Treatment Notes Treatment Clinical Notes Jul, Other specified postprocedural s tates (ICD-10 - Z98.890) [place] Other 01-25-2022 Evaluation note* Encounter Date Diagnosis Assessment Notes Treatment Notes Treatment Clinical Notes Jul, Rupture of left dist al biceps tendon, initial encounter (ICD-10 - S46.212A) MRI reviewed with patient and . Pateint has sustained a distal biceps rupture. This will require surgical repair as soon as possible. We discussed the specific risks of this surgery which includesensory nerve injury over the dorsal forearm. The potential to cause injury to the posterior interosseous nerve and loss of wrist extension strength. We also discussed the potential to cause loss of forearm rotation secodary to synostosis as well asloss of full elbow extension. Patient is aware of this and we will proceed. We would expect at least three months before returning to heavy work activity. Jul,re-op exam (ICD-10 - Z01.818) [place] Other 01-18-2022 Evaluation note* Encounter Date Diagnosis Assessment Notes Treatment Notes Treatment Clinical Notes Jul, Rupture of left dist al biceps tendon, initial encounter (ICD-10 - S46.212A) Patient appears to have suffered a distal biceps tear. We will obtain an MRI for further evaluationand potential surgical planning. Instructed on coming out [...] forearm rotation secodary to synostosis as well asloss of full elbow extension. Patient is aware of this and we will proceed. We would expect at least three months before returning to heavy work activity. [place] Other 10-17-2021 Evaluation note* Encounter Date Diagnosis Assessment Notes Treatment Notes Treatment Clinical Notes Apr, Low back pain, unspecified (ICD- 10 - M54.50) Continue your home medications as prescribed. Consider applying heat to your back for comfort. Callyour family physician tomorrow to discuss possible further imaging of your back. Limit your liftingand bending. Apr,Other chronic pain (ICD-10 - G89.29) Apr,OtherLow back pain material was printed [facility] Other 09-29-2021 Evaluation note* Encounter Date Diagnosis Assessment Notes Treatment Notes Treatment Clinical Notes Mar, Contact with and (kent spected) exposure to other viral communicable diseases (ICD-10 - Z20.828) Mar,Viral upper respiratory illness (ICD-10 - J06.9) Viral upper respiratory infection: adult home care material was printed. Drink plenty fluids, get plenty of rest. Continue home medications as prescribed. Take the medications that were called in by your physician today. Follow-up with your physician on Sunday as scheduled. Mar,Other Additional time spent conducting pre-visit phone call, screening for symptoms, instructions on social distancing, application and removal of PPE, and cleaning of examination room, equipment and supplies was preformed. Patient education given for testing methodology and results. Patient care instructions given in writting by [facility] document. [place] Other Evaluation noteNo assessment information available [facility] Work Phone: Evaluation note* Diagnosis Annual [...] chest pain Porphyria, unspecified porphyria type (CMS/HCC) Allergic rhinitis due to pollen Low back pain Lumbago documented in this encounter [facility] HealthcareEvaluation note* Diagnosis Annual physical exam- Primary Routine general medical examination at a health care facility Benign essential hypertension Essential hypertension, benign Family history of porphyria Benign essential hypertension- Primary Essential hypertension, benign Musculoskeletal chest pain Other chest pain Bilateral leg edema Edema Chronic gastric ulcer without hemorrhage and without perforation DDD (degenerative disc disease), lumbar Degeneration of lumbar or lumbosacral intervertebral disc Porphyria, unspecified porphyria type (HCC) Annual physical exam- Primary Routine general medical examination at a [facility] care facility Benign essential hypertension Essential hypertension, benign Musculoskeletal chest pain Other chest pain Porphyria, unspecified porphyria type (HCC) Other chest pain documented in this encounter [facility] HealthcareEvaluation note* Diagnosis Annual physical exam- Primary Routine general medical examination at a health care facility Benign essential hypertension Essential hypertension, benign Family history of porphyria Benign essential hypertension- Primary Essential hypertension, benign Musculoskeletal chest pain Other chest pain Bilateral leg edema Edema Chronic gastric ulcer without hemorrhage and without perforation DDD (degenerative disc disease), lumbar Degeneration of lumbar or lumbosacral intervertebral disc Porphyria, unspecified porphyria type (HCC) Annual physical exam- Primary Routine general medical examination at a [facility] care facility Benign essential hypertension Essential hypertension, benign Musculoskeletal chest pain Other chest pain Porphyria, unspecified porphyria type (HCC) Benign essential hypertension- Primary Essential hypertension, benign Lumbar strain, initial encounter Musculoskeletal chest pain Other chest pain Bilateral leg edema Edema Chronic gastric ulcer without hemorrhage and without perforation SOB (shortness of breath) Shortness of breath documented in this encounter [facility] HealthcareEvaluation note* Diagnosis Annual physical exam- Primary Routine general medical examination at a health care facility Benign essential hypertension Essential hypertension, benign Family history of porphyria Benign essential hypertension- Primary Essential hypertension, benign Musculoskeletal chest pain Other chest pain Bilateral leg edema Edema Chronic gastric ulcer without hemorrhage and without perforation DDD (degenerative disc disease), lumbar Degeneration of lumbar or lumbosacral intervertebral disc Porphyria, unspecified porphyria type (HCC) Annual physical exam- Primary Routine general medical examination at a health care facility Benign essential hypertension Essential hypertension, benign Musculoskeletal chest pain Other chest pain Porphyria, unspecified porphyria type (HCC) Benign essential hypertension- Primary Essential hypertension, benign Lumbar strain, initial encounter Musculoskeletal chest pain Other chest pain Bilateral leg edema Edema Chronic gastric ulcer without hemorrhage and without perforation SOB (shortness of breath) Shortness of breath Musculoskeletal chest pain Other chest pain documented in this encounter [facility] HealthcareEvaluation note* Diagnosis Annual physical exam- Primary Routine general medical examination at a health care facility Benign essential hypertension Essential hypertension, benign Family history of porphyria Benign essential hypertension- Primary Essential hypertension, benign Musculoskeletal chest pain Other chest pain Bilateral leg edema Edema Chronic gastric ulcer without hemorrhage and without perforation DDD (degenerative disc disease), lumbar Degeneration of lumbar or lumbosacral intervertebral disc Porphyria, unspecified porphyria type (HCC) Annual physical exam- Primary Routine general medical examination at a [facility] care facility Benign essential hypertension Essential hypertension, benign Musculoskeletal chest pain Other chest pain Porphyria, unspecified porphyria type (HCC) Benign essential hypertension- Primary Essential hypertension, benign Lumbar strain, initial encounter Musculoskeletal chest pain Other chest pain Bilateral leg edema Edema Chronic gastric ulcer without hemorrhage and without perforation SOB (shortness of breath) Shortness of breath Other chest pain documented in this encounter [facility]Evaluation [facility]* Diagnosis Annual physical exam- Primary Routine general medical examination at a health care facility Benign essential hypertension Essential hypertension, benign Family history of porphyria Benign essential hypertension- Primary Essential hypertension, benign Musculoskeletal chest pain Other chest pain Bilateral leg edema Edema Chronic gastric ulcer without hemorrhage and without perforation DDD (degenerative disc disease), lumbar Degeneration of lumbar or lumbosacral intervertebral disc Porphyria, unspecified porphyria type (HCC) Annual physical exam- Primary Routine general medical examination at a health care facility Benign essential hypertension Essential hypertension, benign Musculoskeletal chest pain Other chest pain Porphyria, unspecified porphyria type (HCC) Upper respiratory tract infection, unspecified type Benign essential hypertension- Primary Essential hypertension, benign Lumbar strain, initial encounter Musculoskeletal chest pain Other chest pain Bilateral leg edema Edema Chronic gastric ulcer without hemorrhage and without perforation SOB (shortness of breath) Shortness of breath documented in this encounter [facility]S HealthcareHistory general Narrative - Reported* Type Description Date Medical History History of chronic back pain Medical HistoryHyperlipidemiaMedical HistoryHypertensionMedical HistoryBenign prostatic hypertrophyMedical HistoryMVASurgical Historynerve implants in back Surgical Historydeviated septum repairSurgical HistorycholecystectomySurgical HistorycolonoscopySurgical HistorycystoscopyHospitalization [id number] Hospitalization Historysee above surgical history [place] Other History general Narrative - Reported* Type Description Date Medical History History of chronic back pain Medical HistoryHyperlipidemiaMedical HistoryHypertensionMedical HistoryBenign prostatic hypertrophyMedical HistoryMVA l7Cimnjhpi Historynerve implants in back Surgical Historydeviated septum repairSurgical HistorycholecystectomySurgical HistorycolonoscopySurgical HistorycystoscopyHospitalization [id number] Hospitalization Historysee above surgical history [place] Other History general Narrative - Reported* Type Description Date Medical History History of chronic back pain Medical HistoryHyperlipidemiaMedical HistoryHypertensionMedical HistoryBenign prostatic hypertrophyMedical HistoryMVA e0Avrpcxai Historynerve implants in back Surgical Historydeviated septum repairSurgical HistorycholecystectomySurgical HistorycolonoscopySurgical HistorycystoscopySurgical Historyleft distal biceps repair07/2021Hospitalization [id number] Historysee above surgical history [place] Other Summary Purpose Family History Relationship Condition Age at Onset Recorded Date/T day father Cerebrovascular accident (CVA) Unknown Type 2 diabetes mellitusUnknownHistory of heart surgeryUnknownHypertension UnknownRheumatic heart diseaseUnknownRheumatic fever in pediatric patientUnknown sisterHeart murmurUnknownNot SpecifiedPorphyriaUnknownbrotherPorphyriaUnknown Relationship Condition Age at Onset Recorded Date/T day father Cerebrovascular accident (CVA) Unknown Type 2 diabetes mellitusUnknownHistory of heart surgeryUnknownHypertension UnknownRheumatic heart diseaseUnknownRheumatic fever in pediatric patientUnknown sisterHeart murmurUnknownNot SpecifiedPorphyriaUnknownbrotherPorphyriaUnknown fatherDeceasedUnknownHeart diseaseUnknownHistory of strokeUnknown Advance Directives Advance Directive Response Recorded Date/ [...] section and content) DATE CREATED AUTHOR 01/01/2018 [facility] DATE CREATED AUTHOR AUTHOR'S ORGANIZ ATION 08/21/2018 [facility] DATE CREATED AUTHOR AUTHOR'S ORGANIZ ATION 09/03/2018 [facility] DATE CREATED AUTHOR AUTHOR'S ORGANIZ ATION 07/27/2022 [facility] DATE CREATED AUTHOR AUTHOR'S ORGANIZ ATION 11/17/2023 [facility] DATE CREATED AUTHOR AUTHOR'S ORGANIZ ATION 01/16/2025 [facility] EPIC REASON FOR VISIT (unrecogniz ed section and content) ReasonOnset DateCommentsMed Qklulv654ReasonOnset DateCommentsMed Refill 4ReasonCommentsFollow-up6m Lump under left armReasonOnset DateComments Med Vaalhy844ReasonOnset DateCommentsMed Buvbja274ReasonComments Med RefillReasonOnset DateCommentsMed Rzpwhr254ReasonOnset DateComments Med Yktlwi3808/05/2024ReasonOnset DateCommentsMed Ulzaqs2608/14/2024ReasonOnset Date CommentsMed Yksghy9709/01/2024ReasonOnset DateCommentsMed Mugjbg4009/13/2024Reason Onset DateCommentsMed Psesjw1010/28/2024ReasonOnset DateCommentsMed Refill 11/25/2024ReasonOnset DateCommentsMed Dckxif4712/02/2024ReasonOnset DateComments Med Gcqmtj9212/25/2024ReasonCommentsFollow-upKidney pain on going for 2 daysReason Onset DateCommentsMed Wqgmxm1803/08/2025 Care Teams (unrecognized sec tion and content) [...] art: November 09, 2023 End: November 09, 2023[facility] Care ProviderActiveStart: November 09, 2023 End: November 09, 2023Team MemberRelationshipSpecialtyStart DateEnd Date Augusto Lazcano MD [address] [place] [address] PCP - GeneralFamily Medicine08/29/23 Augusto Lazcano MD [address] [place] [address] PCP - [employer] [employer]11/14/23Team MemberRelationshipSpecialtyStart DateEnd Date Augusto Lazcano MD [address] [place] [address] PCP - Generalmily Medicine08/29/23 Augusto Lazcano MD [address] [place] [address] PCP - [employer] [employer]11/14/23Team MemberRelationshipSpecialtyStart DateEnd Date Augusto Lazcano MD [address] [place] [address] PCP - Generalmily Medicine08/29/23 Augusto Lazcano MD [address] [place] [address] PCP - [employer] [employer]11/14/23Team MemberRelationshipSpecialtyStart DateEnd Date Augusto Lazcano MD [address] [place] [address] [facility]/23 Augusto Lazcano MD [address] [place] [address] PCP - [employer] [employer]11/14/23Team MemberRelationshipSpecialtyStart DateEnd Date Augusto Lazcano MD [address] [place] [address] PCP - [facility] Medicine08/29/23 Augusto Lazcano MD [address] [place] [address] PCP - [employer] [employer]11/14/23Team MemberRelationshipSpecialtyStart DateEnd Date Augusto Lazcano MD [address] [place] [address] [facility]/29/23 Augusto Lazcano MD [address] [place] [address] PCP - [employer] [employer]11/14/23Team MemberRelationshipSpecialtyStart DateEnd Date Augusto Lazcano MD [address] [place] [address] PCP - GeneralFamily Medicine08/29/23 Augusto Lazcano MD [address] [place] [address] PCP - [employer]11/14/23Team MemberRelationshipSpecialtyStart DateEnd Date Augusto Lazcano MD [address] [place] [address] [facility]/29/23 Augusto Lazcano MD [address] [place] [address] PCP - [employer] [employer]11/14/23Team MemberRelationshipSpecialtyStart DateEnd Date Augusto Lazcano MD [address] [place] [address] [facility]/29/23 Augusto Lazcano MD [address] [place] [address] PCP - [employer] [employer]11/14/23Team MemberRelationshipSpecialtyStart DateEnd Date Augusto Lazcano MD [address] [place] [address] [facility]08/29/23Team MemberRelationshipSpecialtyStart DateEnd Date Augusto Lazcano MD [address] [place] [address] PCP - GeneralFamily Medicine08/29/23Team MemberRelationshipSpecialtyStart DateEnd Date Augusto Lazcano MD [address] [place] [address] PCP - GeneralFamily Medicine08/29/23Team MemberRelationshipSpecialtyStart DateEnd Date Augusto Lazcano MD [address] [place] [address] PCP - GeneralFamily Medicine08/29/23Team MemberRelationshipSpecialtyStart DateEnd Date Augusto Lazcano MD [address] [place] [address] PCP - GeneralFamily Medicine08/29/23Team MemberRelationshipSpecialtyStart DateEnd Date Augusto Lazcano MD [address] [place] [address] PCP - GeneralFamily Medicine08/29/23Team MemberRelationshipSpecialtyStart DateEnd Date Augusto Lazcano MD [address] [place] [address] PCP - GeneralFamily Medicine08/29/23Team MemberRelationshipSpecialtyStart DateEnd Date Augusto Lazcano MD [address] [place] [address] PCP - GeneralFamily Medicine08/29/23Team MemberRelationshipSpecialtyStart DateEnd Date Augusto Lazcano MD [address] [place] [address] PCP - GeneralFamily Medicine08/29/23 Goals (unrecognized section and content) Goals may [...] BE BASED ON THE PRIMARY CLINICAL RECORDS. [employer] provides no warranty or guarantee of the accuracy or completeness of information in this document.
--- NOTE | 2025-05-15 12:47 | XR_ITS ---
The [place] [id number] Patient Name: RAMIRO BRUNO MRN: [id number] date: 1970 Sex: M Assigned Patient Location: [facility] Current Patient Location: CARD Accession/Order Number: [id number] Exam Date: 05/15/2025 12:56 Report Date: 05/15/2025 15:24 At the request of: MARKEL LAZCANO MD Procedure: XR chest 2V Chest 2 views CLINICAL HISTORY: Shortness Of Breath, Musculoskeletal Chest Pain COMPARISON: None FINDINGS: Lung volumes. Heart is normal in size. No consolidation pneumothorax pleural effusion or free air. XR/XR chest 2V IMPRESSION: NO ACUTE CARDIOPULMONARY ABNORMALITY. Impression dictated by: Philippe Briggs Jr., DLisaOLisa 05/15/2025 3:24 PM Dictation Location: [place] [address] Electronically authenticated by: [id number] Y Date: 05/15/2025 15:24
== END 2025-05-15 12:37 | disposition home or self-care (01) ==
LOC: RAD 12:39
PROVIDERS: PCP Family Medicine; Visit Provider Family Medicine
DX: R06.02 Shortness of breath (principal); R07.89 Other chest pain
CPT/HCPCS: 71046

== ENCOUNTER 2025-05-19 15:00 | Outpatient (OUT) | payer BC, SELFPAY ==
--- OUTSIDE RECORDS SUMMARY | 2023-11-20 10:15 | XMS_ITS ---
Author Organization The [facility] in [place] Address [address] [place] [address] Care Team Providers Care Chief Recordist Name Role Phone Julia CAPUTO, Augusto Primary Care Provider Unavailab [place] Unavailable [phone] REASON FOR VISIT MD Encounters Encounter Location Date Provider Diagnosis [facility] On[facility] [place] [address] 11/20/2023 Landy Torres Plan Of Treatment No Information Progress Notes * Carlton BRUNO ADOB: (54 yo M)Acc No.[id number]:11/20/2023 UNLOCKED PROGRESS NOTE Progress Notes Patient: Carlton HAWK :?Landy Torres M.D.:1970???Age:53 Y ???Sex:MaleDate:11/20/2023hone:[phone]:[address] [place], [place] [id number]:Augusto Dumont MD Subjective: * Chief Complaints: * 1 . MD. * Medical History: Objective: * Vitals: Assessment: Plan: * Treatment: * * Electronic signature of Landy Torres MD, [id number] on 05/19/2025 at 03:04 PM ESTSign off status: PendingVisit Status:?VOICEMSG (Voice) * Provider: Dell Torres M.D. Date: 0 11/20/2023 Generated for Printing/Faxing/eTransmitting on:?05/19/2025 03:04 PM EST
--- OUTSIDE RECORDS SUMMARY | 2025-05-15 07:05 | XMS_ITS | Continuity of Care Document ---
Author Organization [facility] Address [address] [place] [address] Phone Care Team Providers Care Head Cager Name Role Phone Augusto Dumont MD Primary Care Provider [phone] Augusto Dumont MD Attending Provider Care Teams Patient Care Team Team Status: Active Member Role/Relationship Status Dates Augusto Dumont MD Primary Care Provider Active Patient Care Team Team Status: Inactive Member Role/Relationship Status Dates Augusto Dumont MD Primary Care Provider Active S tart: May 15, 2025 End: May 15, 2025[facility] KAYKAY Dumontttending ProviderActiveStart: May 15, 2025 End: May 15, 2025 Chief Complaint and Reason for Visit Chief Complaint Admit Date oxygen levels drop low on and off Octobe r 2024 11:13am Reason for Visit Admit Date Musculoskeletal chest pain May 15, 2025 11:13am SOB (shortness of breath) May 15, 2025 11:13am Allergies, Adverse Reactions, Alerts Allergen Type Severity Reaction Last Updated Verified Status No Known Allergies Allergy Unknown August 11, 2021 2:05pmYesActive Social History Smoking Status Status Start Date End Date Date of Observa tion Never smoked tobacco (finding) May 15, 2025 11:36am Observation Status Observation Response Date of Response Legal Sex [facility] (finding) [facility] Family History Relationship Condition Age at Onset Recorded Date/T day father Cerebrovascular accident (CVA) Unknown Type 2 diabetes mellitusUnknownHistory of heart surgeryUnknownHypertension UnknownRheumatic heart diseaseUnknownRheumatic fever in pediatric patientUnknown sisterHeart murmurUnknownmotherPorphyriaUnknownbrotherPorphyriaUnknownfather DeceasedUnknownHeart diseaseUnknownHistory of strokeUnknown Problems Active Problems Problem Diagnosis/Recorded Date Onset Date Stat us Bilateral leg edema May 15, 2025 11:21am Unknown Active CHELY (generalized anxiety disorder) May 15, 2025 11:22am Unknown Active Migraine without aura and wi th status migrainosus, not intractable May 15, 2025 11:21am Unknown Acti ve Erectile dysfunction due to arterial insufficiency May 15, 2025 11:22am Unknown Active SOB (shortness of breath) May 15, 2025 11:55am U nknown Active Benign essential hypertension May 15, 2025 11:20 am Unknown Active Dyslipidemia May 15, 2025 11:21am Unknown A ctive Porphyria May 15, 2025 11:22am Unknown A ctive DDD (degenerative disc disease), lumbar May 15, 2025 11:21am Unknown Active GERD without esophagitis May 15, 2025 11:43am Un known Active Musculoskeletal chest pain April 07, 2025 2:55pm Unknown Active Chronic rhinosinusitis May 15, 2025 11:21am Unkn own Active Medications Medication Status Dose Units Route Directions Qty Days Refills S tart Date Stop Date End Date Reason(s) Instructions Adherence Cefdinir 300 mg capsule Active 300 MG PO Twice da rickey 20 0Sept2024 12:00amComplies with drug therapyMorphine 30 mg tablet extended smstexiEpqoxwvqyekq69NHZXNcrfl 12 wnyhu33001Ouboaazuh 23rd, 2025 April 07, 2025 5:10pmMusculoskeletal chest pain Other chest painTake one (1) tablet by mouth in the morning and Take one (1) tablet by mouth before bedtimeMorphine 15 mg cyxkkaWshkbmkguqiw41JLTISkjnh 6 hours as needed for atkc811891Gyrzgneci 2024October 2024 3:12pm Musculoskeletal chest pain Other chest painTizanidine 4 mg uywwlwRwdqpf0QWKJXeaff times swhah001Rtnpagmmk 2024 2:04pmComplies with drug therapyMorphine 15 mg gnnlrwZxtpfb68NWHH Every 6 hours as needed for gqqf784278Ashwesd 2024Musculoskeletal chest pain Other chest painComplies with drug therapyPseudoephedrine-Guaifenesin 120-1,200 mg tablet extended release 12 sbKbohzs7DUXKHFxiac 12 hours as needed for cold zaruarud545Steoiru 2024 12:00amComplies with drug therapyTizanidine 4 mg mjjpvyEfjeiinfzwrq4RIOKXcobk at bedtimeJanuary 2021 1:00amSeptember 2024 2:04pmValacyclovir 1 gram mbsgkcGrbzyc1622AKRVLdddw as needed for shingles August 10, 2021 1:00amComplies with drug therapySumatriptan Succinate 100 mg znlxwwOhuwkn584CWORGqrae as needed for Migraine HeadacheJanuary 2021 1:00amComplies with drug therapyDoxazosin 8 mg lseowqNqkgtz6LYKPTgqmq at bedtime August 10, 2021 1:00amComplies with drug therapyMeclizine 25 mg tabletActive 25MGPODaily as needed for VertigoJanuary 2021 1:00amComplies with drug therapyLidocaine 5 % adhesive patch,kcesawpdxMrozou6XYQQRHYXMNNMVezxoJfilcat 2021 1:00ampainComplies with drug therapyOxaprozin 600 mg bgjregWuzhqa810 MGPOTwice daily as needed for PainJanuary 2021 1:00amComplies with drug therapyLosartan-Hydrochlorothiazide 50-12.5 mg yjvkysQmpjtz2QODDNGsfyy morning August 10, 2021 1:00amComplies with drug therapyMorphine 15 mg tablet Qxlqqzoypnbc64EMKWHtmp times daily as needed for PainJanuary 2021 1:00am April 07, 2025 2:48pmFinasteride 5 mg ymrcxbIpuhbs3YJFLWjmec at bedtime Esther 26th, 2022 1:00amComplies with drug therapyTadalafil 10 mg tabletActive 10MGPODaily as needed for edJanuary 2021 1:00amComplies with drug therapy Sucralfate 1 gram amigmtHepudh9OIWMQxtg times dailyJanuary 2021 1:00am Complies with drug therapyOxaprozin 600 mg tabletDiscontinuedMGJanuary 2021 1:00amJanuary 2021 10:21amFurosemide 40 mg xcrrlqUsvszu14NLSCYwzuf May 15, 2025 12:00amComplies with drug therapyHydroxyzine Hcl 50 mg tablet Gznsxo32NXYFIprh times daily as neededOctober 2024 12:00amComplies with drug therapyPrednisone 10 mg cyfokrLonxzu2MXQb Tjjgphux948Psntbqc 2024 12:00am6 PO daily x 3 days, then 4 PO daily x 3 days, then 2 PO daily x 3 days, then 1 PO dailyComplies with drug therapy Immunizations Immunization Event Date Not Given Reason Dose Number 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 Lot Number Reason(s) Given Vaccine Information Statement (VIS) Detail Administration Location COVID-19 mRNA, Comirnaty ([employer]) September 07, 2020 COVID-19 mRNA, Comirnaty ([employer])September 28OVID-19 mRNA, Comirnaty ([employer])June 21, 2021 Medical Equipment Device Date Implanted Device Details Orthopaedic bone screw, bioabsorbable August 11, 2021 BOUCHRA: [id number] Issuing Agency: [employer] Device Id: [id number] Expiration Date: 2023-01-12 Lot Number: [id number] Vital Signs Vital Reading Result Reference Range Collection Date/Time Height 70.5 [in_i] May 15, 2025 11:41jdNilbfe887.95 kgOctober 2024 11:31amBody Felwseyusji36.5 [degF]97.6[facility] 20[facility] 11:31amHeart Rate80 /uko25-767 May 15, 2025 11:31amRespiratory rate20 /oqj60-06Eyjaatq 2024 11:31am Oxygen saturation by Pulse fxlitnie37 %95-100[facility] 2024 11:31amBP Gjuzwqrt642 mm[Hg]100-140October 2024 11:31amBP Kcbahezfj41 mm[Hg]60-100 May 15, 2025 11:31amBMI (Body Mass Index)33.6 kg/q1Enfikfq 2024 11:31am Advance Directives Advance Directive Response Recorded Date/ Time Advance Directives No August 02, 2021 12:01pm Insurance Providers Guarantor Carlton Scott r Address [address] [place], [place] [address]Contact Info.Home Phone: Payer Group Member ID Coverage Type Subscriber Relationship to Subscriber Effective Date Expiration Date Ce DE JESUS/MARCE INOAC Id: [id number] A Steinberger Id: [id number] [address] [place] [address] Home Phone: Email: [email or web address] INOAC Id: [id number] A Steinberger Id: [id number] [address] [place] [address] [address] [facility] [address] Home Phone: Email: [email or web address] Encounters Encounter Location(s) Arrival/Admit Date Discharge/Departure Date Discharge/Departure Disposition Provider(s) Departed Physician/ Provider Office Visit -[facility] Family Medicine Marcelo May 15, 2025 11:13am May 15, 2025 12:05pm Discharged to home care or self care (routine discharge) Augusto Dumont MD Recent Diagnosis Onset Date Admit Date Musculoskeletal chest pain Unknown Octob er 2024 11:13am SOB (shortness of breath) Unknown Octobe r 2024 11:13am Assessments Diagnosis Onset Date Resolution Status Admit Date Musculoskeletal chest pain acuteOctober 2024 11:13amSOB (shortness of breath)acuteOctober 2024 11:13am Plan of Treatment Future Tests Future scheduled test information is unavailable Pending Tests Test Name Ordered Date Scheduled Date XR chest 2V* May 15, 2025 11:55am Future Visits Future appointment information is unavailable Future Procedures Procedure Name Ordered Date Scheduled Date Complete Pulmonary Function May 15, 2025 1 1:55am Future Medications Future medication information is unavailable Patient Instructions Patient instructions are unavailable
--- OUTSIDE RECORDS SUMMARY | 2025-05-19 15:04 | XMS_ITS | Encounter Summary ---
Author Organization [facility] Address [address] [place] [address] Care Team Providers Care Carpet Installer Helper Name Role Phone Augusto Dumont MD Primary Care Provider [phone] Augusto Dumont MD Primary Care Provider [phone] Augusto Dumont MD Unavailable Encounter Details DateTypeDepartmentCare Team (Latest Contact Info)Zkumsqfkfzd10/22/2024Clinisync Result Encounter [facility] External Department Unsolicited Provider, Generic External Data Social History Tobacco UseTypesPacks/DayYears UsedDateSmoking Tobacco: Never AssessedSex and Gender InformationValueDate RecordedSex Assigned at BirthNot on fileLegal Sex Male09/27/2022 7:21 PM EDTGender IdentityNot on fileSexual OrientationNot on filedocumented as of this encounter Plan of Treatment Not on file documented as of this encounter Procedures Procedure NamePriorityDate/TimeAssociated DiagnosisCommentsECG 12-LEAD08/06/2023 4:49 PM EST documented in this encounter Results * ECG 12-LEAD (08/06/2023 4:49 PM EST)Anatomical RegionLateralityModalityOther Specimen (Source)Anatomical Location / LateralityCollection Method / Volume Collection TimeReceived Time08/06/2023 4:49 PM EST Narrative 08/07/2023 6:54 AM EST [facility] ?[address] ? [place] [address] ? Electrocardiograph Report ? Signed ? Patient: Carlton William ?MR#: [id number] ?? : 1970 ?Acct:[id number] ?? Age/Sex: 52 / M ?ADM Date: //24 ?? Loc: PST ? Attending Dr: Terry Bustamante.P.M. ? Ordering Physician: Terry Magaña D.P.M. ?? Date of Service: 08/06/23 ?? Procedure(s): ECG 12 lead ?? Accession Number(s): [id number] ? cc: ?[facility] ? Test Date: ?2023-08-06 ?? Pat Name: ? Carlton William ?Department: ? Room: ? - ?? Gender: ? Male ? 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 : ?1970 ? Requested By: TERRY MAGAÑA ?? Order Number: [id number] ?Reading MD: ?? FREDERICK ??BALL ? Measurements ?? Intervals ?[place] ? Rate: ? 78 ? P: ?-5 ?? WA: ? 173 ?QRS: ?3 ?? QRSD: ? 110 ?T: ?12 ?? QT: ? 395 ? QTc: ?451 ? Interpretive Statements ?? SINUS RHYTHM ?? NONSPECIFIC T-WAVE ABNORMALITY ?? No previous ECG available for comparison ?? Electronically Signed On 08-07-2023 6:54:40 EST by FREDERICK ??BALL ? Dictated By: ?Frederick Uribe D.O. ? Signed By: ?01/23/24 0654 ? DD/ 1649 ? TD/TT: ? Superintendent House: Procedure Note Radiology, Radiologist, - 08/07/2023 [place] [address] Electrocardiograph Report Signed Patient: Carlton William AMR#: [id number] : 1970Acct:[id number] Age/Sex: 52 / MADM Date: 08/06/23 Loc: [facility] Attending Dr: Terry Magaña D.P.M. Ordering Physician: Terry Magaña D.P.M. 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 Signed By:08/07/23 0654 DD/ 48 TD/TT: Superintendent House: Authorizing ProviderResult TypeResult StatusGeneric External Data Provider [facility] IMAGINGFinal Result documented in this encounter Visit Diagnoses Not on filedocumented in this encounter Care Teams Team MemberRelationshipSpecialtyStart DateEnd Date Augusto Dumont MD [facility] - [facility] August[facility] MD [facility] - [facility]08/29/23 Augusto Dumont MD [address] [place] [address] PCP - Ce [place]11/13/2410documented as of this encounter
--- OUTSIDE RECORDS SUMMARY | 2025-05-19 15:04 | XMS_ITS | Encounter Summary ---
Author Organization [facility] Address [address] [place] [address] Care Team Providers Care Tire Sorter Name Role Phone Augusto Dumont MD Primary Care Provider [phone] Augusto Dumont MD Unavailable Encounter Details DateTypeDepartmentCare Team (Latest Contact Info)Qawwbyzdhxw15/29/2024Clinisync Result Encounter [facility] External Department Unsolicited Provider, Generic External Data Social History Tobacco UseTypesPacks/DayYears UsedDateSmoking Tobacco: NeverSex and Gender InformationValueDate RecordedSex Assigned at BirthNot on fileLegal SexMale 09/27/2022 7:21 PM EDTGender IdentityNot on fileSexual OrientationNot on file documented as of this encounter Plan of Treatment Not on file documented as of this encounter Procedures Procedure NamePriorityDate/TimeAssociated DiagnosisCommentsXR FOOT LT MIN 3V 12/12/2023 7:32 AM EDT documented in this encounter Results * XR FOOT LT MIN 3V (12/12/2023 7:32 AM EDT)Anatomical RegionLateralityModality OtherSpecimen (Source)Anatomical Location / LateralityCollection Method / VolumeCollection TimeReceived Time12/12/2023 7:32 AM EDT Narrative 12/12/2023 7:35 AM EDT [facility] ?[address] ? [place] [address] ?XRay Report ? Signed ? Patient: RAMIRO BRUNO ?MR#: [id number] ?? : 1970 ?Acct:[id number] ?? Age/Sex: 53 / M ?ADM Date: 05/28/24 ?? Loc: EC ? Attending Dr: Terry Bustamante.P.M. ? Ordering Physician: Terry Magaña D.P.M. ?? Date of Service: 12/11/23 ?? Procedure(s): XR foot LT min 3V ?? Accession Number(s): [id number] ? cc: Terry Magaña D.P.M.; Augusto Dumont M.D. ? [facility] ? [address] ? [place] [address] ? Patient Name: ?? RAMIRO BRUNO ? MRN: [facility]:[id number] ? date: 1970 ?Sex: M ?? Assigned Patient Location: EC ?? Current Patient Location: ? Accession/Order Number: [id number] ?? Exam Date: 12/11/2023 ??15:12 ?Report Date: 12/12/2023 ??07:32 ? At the request of: ?? TERRY ??JRE ? Procedure: ??XR foot LT min 3V ? PROCEDURE: XR foot LT min 3V ? COMPARISON: 05/16/2023, 08/23/2023 ? HISTORY: LEFT FOOT PAIN ? FINDINGS: ?? BONES:Stable remote resection posterior calcaneus. Plantar enthesopathic ?? spurring of the calcaneus. New permanent pattern of the bones suggests ?? developing osteopenia. Degenerative changes most significant along the ?? posterior talocalcaneal joint ?? SOFT TISSUES:Soft tissue swelling in the region of the Achilles tendon and ?? posterior tibial ?? EFFUSION:None visible. ?? OTHER: Negative. ? XR/XR foot LT min 3V ?? IMPRESSION: ? Stable postsurgical changes ? Increased soft tissue swelling region of the Achilles tendon and posterior ?? heel ? Electronically authenticated by: DALE ??ANISHA ?? Date: 12/12/2023 ??07:32 ? Dictated By: ?Dale Lancaster M.D. ? Signed By: ?12/12/23 0735 ? DD/ 0732 ? TD/TT: ? Composite Bond Technician: Procedure Note Radiology, Radiologist, MD - 12/12/[address] [address] XRay Report Signed Patient: RAMIRO BRUNO AMR#: [id number] : 1970Acct:[id number] Age/Sex: 53 / MADM Date: 12/11/23 Loc: EC Attending Dr: Terry Magaña D.P.M. Ordering Physician: Terry Magaña D.P.M. Date of Service: 12/11/23 Procedure(s): XR foot LT min 3V Accession Number(s): [id number] cc: Terry Magaña D.P.M.; Augusto Dumont M.D. [place] [address] Patient Name: RAMIRO BRUNO MRN: [facility]:[id number] date: 1970 Sex: M Assigned Patient Location: Current Patient Location: Accession/Order Number: [id number] Exam Date: 12/11/2023 15:12 Report Date: 12/12/2023 07:32 At the request of: TERRY MAGAÑA Procedure: XR foot LT min 3V PROCEDURE: XR foot LT min 3V COMPARISON: 05/16/2023, 08/23/2023 HISTORY: LEFT FOOT PAIN FINDINGS: BONES:Stable remote resection posterior calcaneus. Plantar enthesopathic spurring of the calcaneus. New permanent pattern of the bones suggests developing osteopenia. Degenerative changes most significant along the posterior talocalcaneal joint SOFT TISSUES:Soft tissue swelling in the region of the Achilles tendon and posterior tibial EFFUSION:None visible. OTHER: Negative. XR/XR foot LT min 3V IMPRESSION: Stable postsurgical changes Increased soft tissue swelling region of the Achilles tendon and posterior heel Electronically authenticated by: DALE LANCASTER Date: 12/12/2023 07:32 Dictated By: Dale Lancaster M.D. Signed By:12/12/23 0735 DD/ 0732 TD/TT: Composite Bond Technician: Authorizing ProviderResult TypeResult StatusGeneric External Data Provider [facility] IMAGINGFinal Result documented in this encounter Visit Diagnoses Not on filedocumented in this encounter Care Teams Team MemberRelationshipSpecialtyStart DateEnd Date Augusto Dumont MD PCP - GeneralFamily Medicine08/29/23 Augusto Dumont MD [address] [place] [address] [place] - Ce [employer]11/13/2410documented as of this encounter
--- OUTSIDE RECORDS SUMMARY | 2025-05-19 15:04 | XMS_ITS | Encounter Summary ---
Author Organization [facility] Address [address] [place] [address] Care Team Providers Care Couturiere Name Role Phone Augusto Dumont MD Primary Care Provider [phone] Augusto Dumont MD Primary Care Provider [phone] Augusto Dumont MD Unavailable Encounter Details DateTypeDepartmentCare Team (Latest Contact Info)Mnyitaldlom79/06/2024linisync Result Encounter [facility] External Department Unsolicited Provider, Generic External Data Social History Tobacco UseTypesPacks/DayYears UsedDateSmoking Tobacco: Never AssessedSex and Gender InformationValueDate RecordedSex Assigned at BirthNot on fileLegal Sex Male09/27/2022 7:21 PM EDTGender IdentityNot on fileSexual OrientationNot on filedocumented as of this encounter Plan of Treatment Not on file documented as of this encounter Procedures Procedure NamePriorityDate/TimeAssociated DiagnosisCommentsXR ANKLE LT MIN 3V 08/21/2023 10:52 AM EST documented in this encounter Results * XR ANKLE LT MIN 3V (08/21/2023 10:52 AM EST)Anatomical RegionLaterality ModalityOtherSpecimen (Source)Anatomical Location / LateralityCollection Method / VolumeCollection TimeReceived Time08/21/2023 10:52 AM EST Narrative 08/21/2023 10:54 AM EST [facility] ?[address] ? [place] [address] ?XRay Report ? Signed ? Patient: RAMIRO BRUNO ?MR#: [id number] ?? : 1970 ?Acct:[id number] ?? Age/Sex: 52 / M ?ADM Date: 02/05/24 ?? Loc: SURGOUT ? Attending : Demetri Magaña D.P.M. ? Ordering Physician: Marlen Roberto D.P.M. ?? Date of Service: 08/20/23 ?? Procedure(s): XR ankle LT min 3V ?? Accession Number(s): [id number] ? cc: Marlen Roberto D.P.M.; Augusto Dumont M.D. ? [facility] ? [address] ? [place] [address] ? Patient Name: ?? RAMIRO BRUNO ? MRN: [facility]:[id number] ? date: 1970 ?Sex: M ?? Assigned Patient Location: SURGOUT ?? Current Patient Location: ? Accession/Order Number: [id number] ?? Exam Date: 08/20/2023 ??12:50 ?Report Date: 08/21/2023 ??10:52 ? At the request of: ?? MARLEN ??MASTER ? Procedure: ??XR ankle LT min 3V ? PROCEDURE: XR ankle LT min 3V ? HISTORY: Postop x-ray PACU ? COMPARISON: XR foot left 05/16/2023 ? FINDINGS: ?? BONES:Postop resection of posterior superior margin of calcaneus for Achilles ?? tendon repair. Small calcaneal plantar spur. ?? SOFT TISSUES:Images were obtained to cast material which limits evaluation. ?? EFFUSION:None visible. ?? OTHER: Negative. ? XR/XR ankle LT min 3V ?? IMPRESSION: ? 1. Postop Achilles tendon repair. ? Electronically authenticated by: PAUL ??AMBREEN ?? Date: 08/21/2023 ??10:52 ? Dictated By: ?Zieber,Paul M.D. ? Signed By: ?08/21/231053 ? DD/ 51 ? TD/TT: ? Lens Grinder And Polisher: Procedure Note Radiology, Radiologist, MD - 08/21/[address] [address] XRay Report Signed Patient: RAMIRO BRUNO AMR#: [id number] : 1970Acct:[id number] Age/Sex: 52 / MADM Date: 08/20/23 Loc: SURGOUT Attending Dr: Demetri Magaña D.P.M. Ordering Physician: Marlen Roberto D.P.M. Date of Service: 08/20/23 Procedure(s): XR ankle LT min 3V Accession Number(s): [id number] cc: Marlen Roberto D.P.M.; Augusto Dumont M.D. The [place] [id number] Patient Name: RAMIRO BRUNO MRN: [facility]:[id number] date: 1970 Sex: M Assigned Patient Location: SURGOUT Current Patient Location: Accession/Order Number: [id number] Exam Date: 08/20/2023 12:50 Report Date: 08/21/2023 10:52 At the request of: MARLEN ROBERTO Procedure: XR ankle LT min 3V PROCEDURE: XR ankle LT min 3V HISTORY: Postop x-ray PACU COMPARISON: XR foot left 05/16/2023 FINDINGS: BONES:Postop resection of posterior superior margin of calcaneus forAchilles tendon repair. Small calcaneal plantar spur. SOFT TISSUES:Images were obtained to cast material which limitsevaluation. EFFUSION:None visible. OTHER: Negative. XR/XR ankle LT min 3V IMPRESSION: 1. Postop Achilles tendon repair. Electronically authenticated by: PAUL JARQUIN Date: 08/21/2023 10:52 Dictated By: Paul Jarquin M.D. Signed By:08/21/23 1054 DD/ 1052 TD/TT: Lens Grinder And Polisher: Authorizing ProviderResult TypeResult StatusGeneric External Data Provider CLIN[facility] IMAGINGFinal Result documented in this encounter Visit Diagnoses Not on filedocumented in this encounter Care Teams Team MemberRelationshipSpecialtyStart DateEnd Date Augusto Dumont MD PCP - GeneralFamily Medicine Augusto Dumont MD PCP - GeneralFamily Medicine08/29/23 Augusto Dumont MD [address] [place] [address] MERCEDES Encinas 11/13/2410documented as of this encounter
--- OUTSIDE RECORDS SUMMARY | 2025-05-19 15:04 | XMS_ITS | Patient Health Record ---
Author Organization [facility] [place] Address [address] [place] [address] Care Team Providers Care Software Engineer Developer Name Role Phone Augusto Dumont MD Primary [...] W/U Status Risk Notes Problem Hypertrophic scar (25106511) Hypertrophic scar (L91.0) ActiveconfirmedProblemAcquired deformity of left lower leg (disorder) (583697917679544)Other specified acquired deformities of left lower leg (M21.862)ActiveconfirmedProblemAchilles bursitis (165553041)Achilles tendinitis, left leg (M76.62)ActiveconfirmedProblemPain in left foot (504868485417421)Pain in left foot (M79.672)ActiveconfirmedProblemStrain of left Achilles tendon (71896620224862033)Strain of left Achilles tendon, sequela (S86.012S)Active confirmed [...] Date [employer] OUT OF STATE [address] [place] [address] [id number] Carlton William Self - patient is the insured BCBS OUT OF STATEPO [address] [place] [id number] Williamf - patient is the [id number] 2023 Medical (General) History Medical History History ICD Code arthritis high blood pressureSurgical History Surgery Date(Month/Year) deviated septum cholecystectomybicept tendon ruptureneural spinal cord stimulatorHospitalization History Reason Date(Month/Year) see above
--- OUTSIDE RECORDS SUMMARY | 2025-05-19 15:04 | XMS_ITS | Clinical Summary ---
Author Organization [facility] Address [address] [place] [address] Phone Care Team Providers Care Packing Floor Worker Name Role Phone Augusto Dumont MD [...]
--- OUTSIDE RECORDS SUMMARY | 2025-05-19 15:04 | XMS_ITS | Clinical Summary ---
Author Organization [facility] [address] [facility] [address] Address [id number] [address] [place] [address] Care Team Providers Care Aviation Support Equipment Repairer Name Role Phone Augusto Dumont MD Primary Care Provider [phone] Allergies No known active allergies Medications MedicationSigDispense [...] standard drink = 0.6 oz pure alcohol)ChildcareAnswerDate XqulwunaZugsydmocZyxksgk52/12/2019EmploymentAnswer Date IouyvgsmPkpbdpfrehVdrtiwh77/12/2019Purpose - LifeAnswerDate RecordedPurpose and direction in htkiZcqyovm38/11/2021ex and Gender InformationValueDate RecordedSex Assigned at BirthNot on fileLegal XfzKdxq6902/18/2015 11:32 AM EDT Gender IdentityNot on fileSexual OrientationNot on file Last Filed Vital Signs Vital SignReadingTime TakenCommentsBlood Byzvdjov036/9610/01/2022 2:45 PM EDT Dvnjt531910/01/2022 5:00 PM NIJLnrkrdokjvx01.7 ??C (98.1 ??F)10/01/2022 2:28 PM EDTRespiratory Haml660310/01/2022 5:00 PM EDTOxygen Vumvmfeezn91%10/01/2022 5:00 PM EDTInhaled Oxygen Concentration--Xybpli85.5 kg (215 lb)10/01/2022 2:28 PM EDT Xfuqhz844.1 cm (5' 10.5 )06/06/2021 1:46 PM ESTBody Mass Index30.41108/06/2020 1:46 PM EST Plan of Treatment Health MaintenanceDue DateLast DoneCommentsDepression Trojcytny04/13/1984Tobacco Zztuveedx94/13/1984DTaP,Tdap and Td Vaccines (1 - Tdap)09/25/1990Zoster (Shingles) Vaccine (2 of 2)dult BMI Luttxkoki52/19/2024 10/01/2022OVID-19 Vaccine ( season), 01/10/2022, 06/21/2021, Additional history existsInfluenza Fswsahe03/, 06/21/2021, 05/01/2019, Additional history exists Medical Devices Not on file Insurance Care Teams Team MemberRelationshipSpecialtyStart DateEnd Date Augusto Dumont MD [facility]
--- OUTSIDE RECORDS SUMMARY | 2025-05-19 15:04 | XMS_ITS | Clinical Summary ---
Author Organization [facility] Healthcare Address [address] [place] [address] Care Team Providers Care Sales Representative Business Courses Name Role Phone Augusto Dumont MD Primary Care Provider [phone] Allergies No known active allergies Medications MedicationSigDispense [...] Active Problems ProblemNoted DateDiagnosed Guillermo garcia, initial kfvszeflq02/02/2025 Assessment & Plan (01/14/2025 1:40 PM EDT): Tightness on exam and pain appears muscular. Start prednisone and continue zanaflex PRN. Use heat or massage PRN. Zghokbsfh19/17/2024 Assessment & Plan (04/01/2024 3:57 PM EDT): [...] smoke. Discussed daily Aspirin therapy. Benign essential ovlslosaccyh36/13/2024 Assessment & Plan (01/14/2025 1:40 PM EDT): [...] Chronic gastric ulcer without hemorrhage and without xnnuctxpjpu03/13/2024 Assessment & Plan (01/14/2025 1:40 PM EDT): No symptoms and continue omeprazole. Assessment & Plan (04/01/2024 3:55 PM EDT): No symptoms and continue omeprazole. Musculoskeletal chest pain2023 Assessment & Plan (01/14/2025 1:40 PM EDT): Pain unchanged and use morphine PRN. Assessment & Plan (04/01/2024 3:55 PM EDT): Pain unchanged and use morphine PRN. Migraine without aura and with status migrainosus, not qknuuvolwnu49/13/2024 Chronic mgimnmsnkdoubb02/13/2024DD (degenerative disc disease), lumbar 09/26/20236418Oscvscwxwklx41/13/2024Erectile dysfunction due to arterial gxejwbyeyfqkf44/13/2024GAD (generalized anxiety disorder)2023Seasonal allergic rhinitis due to tqtpms0109/26/2023Family history of ihisreyoz09/13/2024 Encounters DateTypeDepartmentCare RqsjDszoaeqgkgi50/26/2025Refill [facility] [address] [place] [address] Augusto Dumont MD Other chest pain03/08/2025Refill [facility] [address] [place] [address] Augusto Dumont MD Musculoskeletal chest pain02/18/2025Refill [facility] [address] [place] [address] Augusto Dumont MD Benign prostatic hyperplasia without lower urinary tract symptoms; Urticariafrom Last 3 Months Family History Medical HistoryRelationNameCommentsDiabetesFatherHeart diseaseFather HyperlipidemiaFatherRelationNameStatusCommentsFatherMotherAlive Social History Tobacco UseTypesPacks/DayYears UsedDateSmoking Tobacco: Never Tobacco Cessation:Counseling Given: Not Answered Sex and Gender InformationValueDate RecordedSex Assigned at BirthNot on file Legal PzhXehx3209/27/2022 7:21 PM EDTGender IdentityNot on fileSexual Orientation Not on file Last Filed Vital Signs Vital SignReadingTime TakenCommentsBlood Ikfplagr618/8601/14/2025 1:12 PM EDT Sqyqy78698/02/2025 1:12 PM QTQFztqrfwiaqk15 ??C (98.6 ??F)01/14/2025 1:12 PM EDT Respiratory Exeq7976 1:12 PM EDTOxygen Xuymxiapwj89%01/14/2025 1:12 PM EDTInhaled Oxygen Concentration--Hlmcto819 kg (229 lb)01/14/2025 1:12 PM EDT Jtpdyy030.8 cm (5' 10 )01/14/2025 1:12 PM EDTBody Mass Index32.8601/14/2025 1:12 PM EDT Plan of Treatment Health MaintenanceDue DateLast DoneCommentsCT Mtvsjvxjvphs70/13/1972FIT-DNA 1971FIT1971FOBT1971 6220Uninazidpmlbo34/13/1972MMR Vaccines (1 of 1 - Standard series)09/25/1972DTaP/Tdap/Td Vaccines (1 - Tdap)09/25/1978Hepatitis B Vaccines (1 of 3 - 19+ 3-dose series)09/25/1990COVID-19 Vaccine ( season)/05/2024, 06/14/2023, 01/10/2022, Additional history exists Influenza Vaccine (#1)/05/2024, 06/14/2023, 06/09/2022, Additional history cqtoxnEpftvnwigsn30/28/118566/Colorectal Cancer Screening 01/10/2026HIB VaccinesAged OutNo longer eligible [...] DateEnd Date Augusto Dumont MD PCP - [facility]08/29/23
--- OUTSIDE RECORDS SUMMARY | 2025-05-19 15:04 | XMS_ITS | Encounter Summary ---
Author Organization [facility] Address [address] [place] [address] Care Team Providers Care Management Scientist Name Role Phone Augusto Dumont MD Primary Care Provider [phone] Augusto Dumont MD Primary Care Provider [phone] Augusto Dumont MD Unavailable Encounter Details DateTypeDepartmentCare Team (Latest Contact Info)Vfcxqpajcwj90/08/2024Clinisync Result Encounter [facility] External Department Unsolicited Provider, Generic External Data Social History Tobacco UseTypesPacks/DayYears UsedDateSmoking Tobacco: Never AssessedSex and Gender InformationValueDate RecordedSex Assigned at BirthNot on fileLegal Sex Male09/27/2022 7:21 PM EDTGender IdentityNot on fileSexual OrientationNot on filedocumented as of this encounter Plan of Treatment Not on file documented as of this encounter Procedures Procedure NamePriorityDate/TimeAssociated DiagnosisCommentsXR ANKLE LT MIN 3V 08/23/2023 1:54 PM EST documented in this encounter Results * XR ANKLE LT MIN 3V (08/23/2023 1:54 PM EST)Anatomical RegionLateralityModality OtherSpecimen (Source)Anatomical Location / LateralityCollection Method / VolumeCollection TimeReceived Time08/23/2023 1:54 PM EST Narrative 08/23/2023 1:56 PM EST [facility] ?[address] ? [place] [address] ?XRay Report ? Signed ? Patient: RAMIRO BRUNO ?MR#: [id number] ?? : 1970 ?Acct:[id number] ?? Age/Sex: 52 / M ?ADM Date: 02//24 ?? Loc: RAD ? Attending Dr: Nolan Corona ? Ordering Physician: Nolan Corona ?? Date of Service: 08/23/23 ?? Procedure(s): XR ankle LT min 3V ?? Accession Number(s): [id number] ? cc: Nolan Corona; Augusto Dumont M.D. ? [facility] ? [address] ? [place] [address] ? Patient Name: ?? RAMIRO BRUNO ? MRN: [facility]:[id number] ? date: 1970 ?Sex: M ?? Assigned Patient Location: RAD ?? Current Patient Location: RAD ?? Accession/Order Number: [id number] ?? Exam Date: 08/23/2023 ??13:23 ?Report Date: 08/23/2023 ??13:54 ? At the request of: ?? NOLAN ??CJ ? Procedure: ??XR ankle LT min 3V ? PROCEDURE: XR ankle LT min 3V ? COMPARISON: 08/20/2023 ? HISTORY: LEFT ANKLE PAIN ? FINDINGS: ?? BONES:Contour deformity of the posterior calcaneus consistent with partial ?? resection and Achilles tendon repair. ?? SOFT TISSUES:Posterior soft tissue swelling and heterotopic ossification ?? EFFUSION:None visible. ?? OTHER: Negative. ? XR/XR ankle LT min 3V ?? IMPRESSION: ? Stable postsurgical changes from Achilles tendon repair ? Electronically authenticated by: DALE ??ANISHA ?? Date: 08/23/2023 ??13:54 ? Dictated By: ?Dale Lancaster M.D. ? Signed By: ?08/23/23 1356 ? DD/ 1354 ? TD/TT: ? Load Out Worker: Procedure Note Radiology, Radiologist, - 09/19/2023 [place] [address] XRay Report Signed Patient: RAMIRO BRUNO [facility]#: [id number] : 1970Acct:[id number] Age/Sex: 52 / MADM Date: 08/23/23 Loc: RAD Attending Dr: Nolan Corona Ordering Physician: Nolan Corona Date of Service: 08/23/23 Procedure(s): XR ankle LT min 3V Accession Number(s): [id number] cc: Nolan Corona; Augusto Dumont M.D. The [place] [id number] Patient Name: RAMIRO BRUNO MRN: [id number] date: 1970 Sex: M Assigned Patient Location: RAD Current Patient Location: RAD Accession/Order Number: [id number] Exam Date: 08/23/2023 13:23 Report Date: 08/23/2023 13:54 At the request of: NOLAN CORONA Procedure: XR ankle LT min 3V PROCEDURE: XR ankle LT min 3V COMPARISON: 08/20/2023 HISTORY: LEFT ANKLE PAIN FINDINGS: BONES:Contour deformity of the posterior calcaneus consistent with partial resection and Achilles tendon repair. SOFT TISSUES:Posterior soft tissue swelling and heterotopic ossification EFFUSION:None visible. OTHER: Negative. XR/XR ankle LT min 3V IMPRESSION: Stable postsurgical changes from Achilles tendon repair Electronically authenticated by: DALE LANCASTER Date: 08/23/2023 13:54 Dictated By: Dale Lancaster M.D. Signed By:08/23/23 1356 DD/ 1354 TD/TT: Load Out Worker: Authorizing ProviderResult TypeResult StatusGeneric External Data Provider [facility]NC IMAGINGFinal Result documented in this encounter Visit Diagnoses Not on filedocumented in this encounter Care Teams Team MemberRelationshipSpecialtyStart DateEnd Date Augusto Dumont MD PCP - GeneralFamily Medicine Augusto Dumont MD PCP - GeneralFamily Medicine08/29/23 Augusto Dumont MD [address] [place] [address] PCP - [place] [facility]11/13/2410documented as of this encounter
[2025-05-19 15:12] LABS: Hemoglobin 13.7 g/dL (14.0-18.0)
--- OUTSIDE RECORDS SUMMARY | 2025-05-19 15:28 | XMS_ITS | CCD ---
Author Organization [facility] Care Team Providers Care [employer] Chair Name Role Phone JALEESA, AUGUSTO~[phone] UNKNOWN Unavailable Unavailable NADERER, AUGUSTO~[phone] UNKNOWN Unavailable Unavailable NADERER, AUGUSTO~[phone] UNKNOWN Unavailable Unavailable NADERER, AUGUSTO~[phone] UNKNOWN Unavailable Unavailable Robles Becker Unavailable Unavailable Ky Campbell Unavailable Unavailable CARLOSEREEllyn, AUGUSTO~[phone] UNKNOWN Unavailable Unavailable RADHA FERRO Attending Robin casanova UNKNOWN Primary Care Unavailable Yaneth Horton Unavailable Gianluca Gonzales Unavailable JALEESA, DR AUGUSTO Sharpe Primary Care Unavailable ELZA, DR CHUCK Geiger Admitting Unavailremyundo BERTRAND, DR CHUCK Geiger Attending Unavailabl e JIMENEZ, DR CURIEL Consulting Unavailable Maddison Adair Consulting Unavailable JALEESA, DR AUGUSTO Sharpe Admitting Unavailable JALEESA, DR AUGUSTO Sharpe Attending Unavailable JALEESA, DR AUGUSTO Sharpe Primary Care Unavailable AMBREEN, DR CIARA Ragland Consulting Unavailable JALEESA, DR AUGUSTO Sharpe Consulting Unavailable FIONA Randle Attending Provider [phone] FIONA Randle Attending Provider MD Landy Torres Attending Provider MD Augusto Lazcano Primary Care Provider Terry Randle Attending Unavailable Terry Randle Admitting Unavailable Landy Torres Attending Unavailable Landy Torres Admitting Unavailable Augusto Lazcano Primary Care Unavailable Augusto Lazcano MD Primary Care Provider Augusto Lazcano MD Unavailable AUGUSTO LAZCANO Attending Unavailable AUGUSTO LAZCANO Attending Unavailable AUGUSTO LAZCANO Attending Unavailable Augusto Lazcano MD Primary Care Provider [phone] Augusto Lazcano MD Attending Provider Augusto Lazcano MD Primary Care Provider Augusto Lazcano MD Primary Care Provider Augusto Lazcano MD Unavailable Allergies Allergy ClassificationReported Allergen(s)Allergy TypeDate of OnsetReaction(s) Facility (6 sources)Sulfamethoxazole / TrimethoprimDrug AllergyU[facility] [employer] Other (1 source)SulfamethoxazoleDrug Lskdkkc20-42-6489HkoxgsbqdBar[facility] (1 source)TrimethoprimDrug Rvxsrzx41-83-5696DrsuekiliBarney Children'S Medical Center Repository (13 sources)AmoxicillinDrug Pmhsoah36-59-1464OzdyFMKM algrano Work Phone: Medications Current Medications MedicationDrug Class(es)DatesSig (Normalized)Sig (Original)acetaminophen 325 mg / oxyCODONE hydrochloride 5 mg oral tablet (2 sources)Opioid AgonistStart: 27-51-2797brxh 1 tablet by mouth every four hours as needed for painPercocet 5-325 MG 1 tablet as needed for pain Orally up to every 4 hrs for 5 days Jul, [id number] 200 actuat albuterol 0.09 mg/actuat metered dose inhaler (17 sources)beta2-Adrenergic AgonistStart: 11-53-1755ekuu 2 puff(s) by inhalation every four hours for wheezingalbuterol HFA 90 mcg/act inhaler Indications: SOB (shortness of breath) Inhale 2 puffs every 4 (four) hours if needed for wheezing or shortness of breath 18 g 2 01/14/2025 ActiveStart: 34-14-9791nfgp 2 puff(s) by inhalation every four hours for wheezingalbuterol HFA 90 mcg/act inhaler Inhale 2 puffs every 4 (four) hours if needed for wheezing or shortness of breath 10/20/2022 Activecefdinir 300 mg oral capsule (1 source)Cephalosporin AntibacterialStart: 62-02-4332vaun 1 capsule by mouth twice dailyCefdinir 300 mg capsule Active 300 MG PO Twice daily April 02, 2025 12:00am Complies with drug therapycelecoxib 200 mg oral capsule (5 sources)Nonsteroidal Anti-inflammatory DrugStart: 10-07-2024 End: 19-73-2440nhvc 1 capsule by mouth twice daily as needed for paincelecoxib (CeleBREX) 200 MG capsule Indications: Musculoskeletal chest pain Take 1 capsule (200 mg)by mouth 2 (two) times a day as needed for mild pain Take with food 60 capsule 3 10/07/2024 12/03/2024 Discontinuedcodeine phosphate 2 mg/ml / guaiFENesin 20 mg/ml oral solution (20 sources)Opioid AgonistStart: 81-71-2980lral 10 mL by mouth every six hours as needed for cough and dyspnea and dyspneaguaiFENesin-codeine (Robitussin-AC) 100-10 MG/5ML syrup Indications: Shortness of breath Take 10 mLby mouth every 6 (six) hours if needed for cough 250 mL 1 09/15/2024 ActiveStart: 11-29-2023 End: 87-82-3371wdxx 10 mL by mouth every six hours as needed for cough and dyspnea and dyspneaguaiFENesin-codeine (Robitussin-AC) 100-10 MG/5ML syrup Indications: Shortness of breath Take 10 mLby mouth every 6 (six) hours if needed for cough 250 mL 1 04/14/2024 09/13/2024 Discontinued (Reorder)doxazosin 8 mg oral tablet (20 sources)alpha-Adrenergic BlockerStart: 08-07-2024 End: 37-99-0201jvkl 1 tablet by mouth at bedtimedoxazosin (Cardura) 8 MG tablet Indications: Benign prostatic hyperplasia without lower urinary tract symptoms Take 1 tablet (8 mg) by mouth at bedtime 30 tablet 5 02/19/2025 ActiveStart: 27-98-2570erpr 1 tablet by mouth at bedtimedoxazosin (Cardura) 8 MG tablet Indications: Benign prostatic hyperplasia without lower urinary tract symptoms TAKE 1 TABLET BY MOUTH AT BEDTIME 30 tablet 5 02/04/2024 ActiveDoxazosin Mesylate Activefinasteride 5 mg oral tablet (7 sources)5-alpha Reductase InhibitorStart: 08-10-2021 End: 21-10-7181pgbu 1 tablet by mouth once daily at bedtimeFinasteride 5 mg tablet Active 5 MG PO Daily at bedtime August 10, 2021 1:00am Complies with drug therapyfurosemide 40 mg oral tablet (20 sources)Loop DiureticStart: 32-67-4753tfst 1 tablet by mouth once daily Furosemide 40 mg tablet Active 40 MG PO Daily May 15, 2025 12:00am Complies with drug therapyStart: 69-02-4490bvpp 1 tablet by mouth once daily furosemide (Lasix) 40 MG tablet Indications: Localized edema TAKE 1 TABLET BY MOUTH DAILY 30 tablet5 03/11/2024 Wjfpcs17 hr guaiFENesin 1200 mg / pseudoephedrine hydrochloride 120 mg extended release oral tablet (20 sources)alpha-Adrenergic AgonistStart: 25-11-7832gefx 1 tablet by mouth every twelve hours as neededPseudoephedrine-Guaifenesin 120-1,200 mg tablet extended release 12 hr Active 1 TAB PO Every 12 hours as needed for cold symptoms 60 2 May 07, 2025 12:00am Complies with drug therapyStart: 05-19-2024 End: 82-66-1037hcin 120-1200 mg by mouth every twelve hours as needed pseudoephedrine-guaiFENesin ER (Mucinex D Max Strength) 120-1200 MG tablet sustained-release 12 hour Indications: Allergic rhinitis due to pollen Take 1 tablet by mouth 2 (two) times a day as needed (Congestion) 60 tablet 2 12/03/2024 ActiveStart: 38-50-6654lffw 120-1200 mg by mouth every twelve hours as neededMucinex D Max Strength 120-1200 MG tablet sustained-release 12 hour Indications: Allergic rhinitis due to pollen TAKE 1 TABLET BY MOUTH TWICE DAILY NEEDED 60 tablet 2 01/23/2024 ActivehydroCHLOROthiazide 12.5 mg / losartan potassium 50 mg oral tablet (20 sources)Thiazide Diuretic, Angiotensin 2 Receptor BlockerStart: 08-10-2021 take 1 tablet by mouth once dailylosartan-hydroCHLOROthiazide (Hyzaar) 50-12.5 MG tablet Indications: Essential hypertension, benignTAKE 1 TABLET BY MOUTH DAILY 90 tablet 3 07/17/2024 ActivehydrOXYzine hydrochloride 50 mg oral tablet (20 sources)AntihistamineStart: 92-26-2421yoff 1 tablet by mouth four times daily as neededHydroxyzine Hcl 50 mg tablet Active 50 MG PO Four times daily as needed May 15, 2025 12:00am Complies with drug therapyStart: 02-19-2025 take 1 tablet by mouth every six hourshydrOXYzine HCl (Atarax) 25 MG tablet Indications: Urticaria Take 1 tablet (25 mg) by mouth every 6(six) hours if needed for itching 60 tablet 5 02/19/2025 ActiveStart: 06-11-2024 End: 00-50-1440zpxq 1 tablet by mouth four times daily as neededhydrOXYzine HCl (Atarax) 25 MG tablet Indications: Urticaria TAKE 1 TABLET BY MOUTH FOUR TIMES DAILY NEEDED FOR ITCHING 60 tablet 5 12/18/2024 ActiveStart: 01-71-5115dufd 1 tablet by mouth four times daily as neededhydrOXYzine HCl (Atarax) 25 MG tablet Indications: Urticaria Take 1 tablet (25 mg) by mouth 4 (four) times a day as needed for itching 60 tablet 5 01/14/2024 Activelidocaine 0.05 mg/mg medicated patch (19 sources)Antiarrhythmic, Amide Local AnestheticStart: 08-14-2024 End: 32-18-0594rpgff 1 dose transdermal route every twelve hourslidocaine (Lidoderm) 5 % patch Indications: Musculoskeletal chest pain Apply 1 patch over 12 hours topically Daily Apply to painful area 12 hours per day, remove for 12 hours. 30 patch 5 09/01/2024 ActiveStart: 31-45-1311rpjlo 1 dose topically once dailyLidocaine 5 % adhesive patch,medicated Active 3 PATCH TOPICAL Daily August 10, 2021 1:00am pain Complies with drug therapylosartin (6 sources)losartin HTZ Activelosartin Activemeclizine hydrochloride 25 mg oral tablet (18 sources)AntiemeticStart: 03-38-5674jhux 1 tablet by mouth four times daily as needed for dizzinessmeclizine (Antivert) 25 MG tablet Indications: Vertigo Take 1 tablet (25 mg) by mouth 4 (four) times a day as needed for dizziness 60 tablet 3 08/14/2024 ActiveStart: 91-25-8230uohd 1 tablet by mouth once daily as neededMeclizine 25 mg tablet Active 25 MG PO Daily as needed for Vertigo August 10, 2021 1:00am Complies with drug therapymeloxicam 15 mg oral tablet (17 sources)Nonsteroidal Anti-inflammatory DrugStart: 30-77-4204euad 1 tablet by mouth once daily at mealtimemeloxicam (Mobic) 15 MG tablet Indications: DDD (degenerative disc disease), lumbar Take 1 tablet (15 mg) by mouth Daily Take with food 90 tablet 3 04/01/2024 ActiveMeloxicam Not-TakingMeloxicam Active morphine sulfate 15 mg oral tablet (20 sources)Opioid AgonistStart: 04-07-2025 End: 78-06-7784pkgv 1 tablet by mouth every six hours as needed for painMorphine 15 mg tablet Active 15 MG PO Every 6 hours as needed for pain 120 30 0 May 04, 2025 Musculoskeletal chest pain Other chest pain Complies with drug therapyStart: 03-10-2025 End: 77-45-2871bwru 1 tablet by mouth four times daily as needed for pain morphine (MSIR) 15 MG tablet Indications: Other chest pain Take 1 tablet (15 mg) by mouth 4 (four) times a day as needed for moderate pain or severe pain 120 tablet 03/10/2025 04/09/2025 ActiveStart: 02-02-2025 End: 93-61-8646kuzc 1 tablet by mouth every twelve hours in the morningMorphine 30 mg tablet extended release Discontinued 30 MG PO Every 12 hours 60 30 0 MarchApril 07, 2025 5:10pm Musculoskeletal chest pain Other chest pain Take one (1) tablet bymouth in the morning and Take one (1) tablet by mouth before bedtimeStart: 08-10-2021 End: 66-68-3160vadf 1 tablet by mouth four times daily as needed for pain morphine (MSIR) 15 MG tablet Indications: Other chest pain Take 1 tablet (15 mg) by mouth 4 (four) times a day as needed for moderate pain or severe pain 120 tablet 11/25/2024 12/25/2024 Discontinued(Reorder)omeprazole 40 mg delayed release oral capsule (20 sources)Proton Pump InhibitorStart: 05-15-2023 End: 49-63-5171bevp 1 capsule by mouth in the morningomeprazole (PriLOSEC) [address] capsule Indications: Gastroesophageal reflux disease with esophagitis without hemorrhage Take 1 capsule (40 mg) by mouth in the morning and 1 capsule (40 mg) before bedtime. 60 capsule 5 02/11/2025 Activeondansetron 4 mg disintegrating oral tablet (20 sources)Serotonin-3 Receptor AntagonistStart: 06-05-2024 End: 33-68-6938fvjc 1 tablet by mouth every six hours for nauseaondansetron ODT (Zofran-ODT) 4 MG disintegrating tablet Indications: Chronic gastric ulcer without hemorrhage or perforation Take 1 tablet (4 mg) by mouth every 6 (six) hours if needed for nausea or vomiting 30 tablet 1 01/12/2025 ActiveStart: 83-49-1961qgucewxcnzs ODT (Zofran-ODT) 4 MG disintegrating tablet Indications: Chronic gastric ulcer without hemorrhage or perforation DISSOLVE 1 (ONE) TABLET ON THE TONGUE EVERY 6 HOURS NEEDED 30 tablet 1 02/04/2024 Activeoxaprozin 600 mg oral tablet (18 sources)Nonsteroidal Anti-inflammatory DrugStart: 86-36-8653chiy 1 tablet by mouth in the morningoxaprozin (Daypro) 600 MG tablet Indications: Low back pain Take 1 tablet (600 mg) by mouth in the morning and 1 tablet (600 mg) before bedtime. 60 tablet 5 12/03/2024 ActiveStart: 08-10-2021 End: 57-36-6770knyy 1 tablet by mouth twice dailyoxaprozin (Daypro) 600 MG tablet Indications: Low back pain TAKE 1 TABLET BY MOUTH TWICE DAILY 60 tablet 5 11/20/2023 04/01/2024 DiscontinuedStart: 08-10-2021 End: 38-44-4579Gfgvohzih Discontinued MG TABLET August 10, 2021 1:00am August 10, 2021 10:21ampredniSONE 10 mg oral tablet (3 sources)Start: 08-58-9000flkg 6 tablets by mouth once daily, then take 4 tablets by mouth once daily, then take 2 tablets bymouth once daily, then take 1 tablet by mouth once dailyPrednisone 10 mg tablet Active 0 PO As Directed 39 0 May 15, 2025 12:00am 6 PO daily x 3 days, then 4 PO daily x 3 days, then 2 PO daily x 3 days, then 1 PO daily Complies with drug therapyStart: 01-14-2025 End: 80-18-9107kvso 1 tablet by mouth once dailypredniSONE (Deltasone) 50 MG tablet Indications: Lumbar strain, initial encounter Take 1 tablet (50mg) by mouth Daily for 6 days 6 tablet 01/14/2025 01/20/2025 Activesildenafil 20 mg oral tablet (20 sources)Phosphodiesterase 5 InhibitorStart: 67-71-4640htus 2 tablets by mouth once dailysildenafil (Revatio) 20 MG tablet Indications: Benign prostatic hyperplasia without lower urinary tract symptoms TAKE 2 TABLETS BY MOUTH DAILY 60 tablet 5 05/13/2024 ActiveStart: 84-23-2333arln 2 tablets by mouth once daily sildenafil (Revatio) 20 MG tablet Indications: Benign prostatic hyperplasia without lower urinary tract symptoms TAKE 2 TABLETS BY MOUTH DAILY 60 tablet 5 06/18/2023 ActiveSimvastatin (6 sources)HMG-CoA Reductase InhibitorSimvastatin Activesucralfate 1000 mg oral tablet (20 sources)Aluminum ComplexStart: 08-10-2021 End: 91-07-3699vjfs 1 tablet by mouth at bedtimesucralfate (Carafate) 1 g tablet Indications: Chronic gastric ulcer without hemorrhage or perforation Take 1 tablet (1 g) by mouth in the morning and 1 tablet (1 g) at noon and 1 tablet (1 g) in the evening and 1 tablet (1 g) before bedtime. 120 tablet 5 01/13/2025 ActiveSUMAtriptan 100 mg oral tablet (20 sources)Serotonin-1b and Serotonin-1d Receptor AgonistStart: 01-23-2024 End: 21-16-6022TKYTtqauuwr (Imitrex) 100 MG tablet Indications: Chronic migraine without aura, not intractable, without status migrainosus TAKE 1 TABLET BY MOUTH at the onset OF headache, may repeat in 2 (TWO) HOURS one time 9 tablet 5 01/23/2024 12/28/2024 Discontinued (Reorder)Start: 86-57-1597VODYupeegvh (Imitrex) 100 MG tablet Indications: Chronic migraine without aura, not intractable, without status migrainosus Take 1 tablet (100 mg) by mouth 1 (one) time if needed for migraine for up to 1 dose 9 tablet 5 12/29/2024 Active tadalafil 10 mg oral tablet (20 sources)Phosphodiesterase 5 InhibitorStart: 08-10-2021 End: 37-62-7528hmmj 1 tablet by mouth once daily as neededTadalafil 10 mg tablet Active 10 MG PO Daily as needed for ed August 10, 2021 1:00am Complies with drug therapytiZANidine 4 mg oral tablet (20 sources)Central alpha-2 Adrenergic AgonistStart: 64-37-2457rvmi 1 tablet by mouth three times dailyTizanidine 4 mg tablet Active 4 MG PO Three times daily 90 3 April 13, 2025 2:04pm Complies with drug therapyStart: 30-48-9290yuma 1 tablet by mouth three times daily as neededtiZANidine (Zanaflex) 4 MG tablet Indications: Low back pain TAKE 1 TABLET BY MOUTH THREE TIMES DAILY NEEDED 90 tablet 3 11/24/2024 ActiveStart: 56-39-5828bgvu 1 tablet by mouth three times daily as neededtiZANidine (Zanaflex) 4 MG tablet Indications: Low back pain TAKE 1 TABLET BY MOUTH THREE TIMES DAILY NEEDED 90 tablet 3 06/02/2024 Active Start: 45-12-8089fumx 1 tablet by mouth three times daily as neededtiZANidine (Zanaflex) 4 MG tablet Indications: Low back pain TAKE 1 TABLET BY MOUTH THREE TIMES DAILY NEEDED 90 tablet 3 01/14/2024 ActiveStart: 08-10-2021 End: 55-77-1843izvn 1 tablet by mouth once daily at bedtimeTizanidine 4 mg tablet Discontinued 4 MG PO Daily at bedtime August 10, 2021 1:00am April 13, 2025 2:04pmtake 1 tablet by mouth every eight hoursZanaflex 4 MG 1 tablet as needed Orally Three times a day ActivevalACYclovir 1000 mg oral tablet (20 sources)Herpesvirus Nucleoside Analog DNA Polymerase Inhibitor, Herpes Simplex Virus Nucleoside Analog DNA Polymerase Inhibitor, Herpes Zoster Virus Nucleoside Analog DNA Polymerase InhibitorStart: 63-00-5776fmtn 1 tablet by mouth three times daily at bedtimevalACYclovir (Valtrex) 1 g tablet Indications: Herpes zoster without complications TAKE 1 TABLET BYMOUTH THREE TIMES DAILY (IN THE MORNING, IN THE EVENING and AT BEDTIME) 21 tablet 08/08/2024 ActiveStart: 36-06-3743yjoe 1 tablet by mouth in the morning, then take 1 tablet by mouth in the evening, then take 1 tablet by mouth at bedtimevalACYclovir (Valtrex) 1 g tablet Indications: Herpes zoster without complications TAKE 1 TABLET BYMOUTH IN THE MORNING, then ONE TABLET BY MOUTH IN THE EVENING, then ONE TABLET BY MOUTH BEFORE bedtime 21 tablet 12/24/2023 ActiveStart: 80-73-5869Riizbcnfwgju 1 gram tablet Active 1000 MG PO Daily as needed for shingles August 10, 2021 1:00am Complies with drug therapyStart: 15-44-3959nhuv 1000 mg by mouth once daily Valacyclovir Active 1000 MG PO Daily August 10, 2021 1:00am Completed/Discontinued Medications MedicationDrug Class(es)DatesSig (Normalized)Sig (Original)cephalexin 500 mg oral capsule (2 sources)Cephalosporin AntibacterialStart: 45-54-0413lanl 1 capsule by mouth every eight hoursCephalexin 500 MG 1 capsule Orally every 8 hrs for 2 days Jul, Not-TakinglevoFLOXacin 750 mg oral tablet (1 source)Quinolone AntimicrobialStart: 12-10-2024 End: 09-04-0083jynz 1 tablet by mouth once dailylevoFLOXacin (Levaquin) 750 MG tablet Indications: Upper respiratory tract infection, unspecified type Take 1 tablet (750 mg) by mouth Daily for 7 days 7 tablet 12/10/2024 12/17/2024 Problems Active Problems Problem ClassificationProblemDateDocumented DateEpisodic/ChronicAnxiety disorders (20 sources)Generalized anxiety disorder; Translations: [Generalized anxiety disorder]Onset: 981941-95-5159DoryeveHkfqyftnsk associated with dizziness or vertigo (1 source)Vertigo; Translations: [Dizziness and giddiness]69-69-1818Fjjlkhia Deficiency and other anemia (1 source)Anemia, unspecified; Translations: [Anemia, unspecified]Onset: 56-47-0453LmqfuptuLeazimalc of lipid metabolism (20 sources)Dyslipidemia; Translations: [Hyperlipidemia, unspecified]Onset: 546716-93-4015VfuzciqOzhmpipimr disorders (1 source)Gastroesophageal reflux disease without esophagitis; Translations: [Gastro-esophageal reflux disease without esophagitis]72-07-8335NobatmdNhaqnirjg hypertension (20 sources)Benign essential hypertension; Translations: [Essential (primary) hypertension]Onset: 551108-47-5143DpftbllWgcutvrjkqqgnj ulcer (except hemorrhage) (20 sources)Chronic gastric ulcer without hemorrhage AND without perforation; Translations: [Chronic gastric ulcer without hemorrhage or perforation]Onset: 830391-44-3767HhugsgtOxglcwmm; including migraine (20 sources)Migraine without aura, not refractory ; Translations: [Migraine without aura, not intractable, withstatus migrainosus]Onset: 2023 14-30-5154FuiobvuVrcqb connective tissue disease (1 source)Neuralgia and neuritis, unspecified; Translations: [Neuralgia and neuritis, unspecified]Onset: 55-50-5100OjbilzgwQvyaq lower respiratory disease (6 sources)Dyspnea; Translations: [Shortness of breath]93-73-2121PwjisvtzDowdn male genital disorders (20 sources)Erectile dysfunction co-occurrent and due to arterial insufficiency; Translations: [Erectile dysfunction due to arterial insufficiency]Onset: 501446-51-0862TnmgehgFdkpi nervous system disorders (1 source)Other chronic pain; Translations: [Other chronic pain G89.29]Onset: 05-01-2021 Resolved: 00-65-0000PopdmnqCjplz non-traumatic joint disorders (1 source)Pain in left hip; Translations: [PAIN IN LEFT HIP]Onset: 07-26-2022 EpisodicOther nutritional; endocrine; and metabolic disorders (20 sources)Porphyria; Translations: [Unspecified porphyria]Onset: 04-01-2024 43-92-1455WzfyszdAhmgj screening for suspected conditions (not mental disorders or infectious disease) (1 source)Encounter for screening for malignant neoplasm of prostate; Translations: [ENC SCREEN MALIG NEOPLASM PROSTATE]Onset: 82-98-5859FtrhkykmHmdcy upper respiratory disease (20 sources)Allergic rhinitis due to pollen; Translations: [Allergic rhinitis due to pollen]Onset: 697363-73-4617YmydcypXpysv upper respiratory infections (20 sources)Chronic sinusitis, unspecified; Translations: [Chronic rhinitis] Onset: 825307-20-9833BvdcgwyOnbfx upper respiratory infections (2 sources)Acute upper respiratory infection, unspecified; Translations: [Upper respiratory infection]Onset: 04-13-2021 Resolved: 80-40-9546WevyqlbrOjtjreocnwl; intervertebral disc disorders; other back problems (20 sources)Degeneration of lumbar intervertebral disc; Translations: [DDD (degenerative disc disease), lumbar]Onset: hronic Spondylosis; intervertebral disc disorders; other back problems (1 source)Low back pain; Translations: [Low back pain]86-56-8187Wizhxgip Past or Other Problems Problem ClassificationProblemDateDocumented DateEpisodic/ChronicImmunizations and screening for infectious disease (1 source)Contact with and (suspected) exposure to other viral communicable diseases; Translations: [Contact with and (suspected) exposure to other viral communicable diseases Z20.828]Onset: 04-13-2021 Resolved: 13-33-1734AtsakroqAysgcwujztu chest pain (20 sources)Chest pain; Translations: [Other chest pain]Onset: 2023 85-88-8223FcsytcjgQkafk aftercare (1 source)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; Translations: [OTH SHEET COMBINING OPERATOR CURRENT DRUG THERAPY]Onset: 94-81-9578JmwiutevZjjsd non-traumatic joint disorders (4 sources)Pain in left elbow; Translations: [PAIN IN LEFT ELBOW]Onset: 30-26-8861HgwitjjtFybnefmz codes; unclassified (2 sources)Other specified postprocedural statesOnset: 08-11-2021 Resolved: 70-29-3812QsyrfklkNwhcgmyj codes; unclassified (20 sources)Bilateral lower limb edema; Translations: [Localized edema]Onset: 059760-05-8964ClspxhcaLqkoabcn codes; unclassified (20 sources)FH: Porphyria; Translations: [Family history of other endocrine, nutritional and metabolic diseases]Onset: 583858-98-1478QplzlaxrNtydlxi and strains (14 sources)Strain of muscle, fascia and tendon of other parts of biceps, left arm, initial encounter; Translations: [Strain of muscle, fascia and tendon of other parts of biceps, left arm, subsequent encounter]Onset: 08-02-2021 Resolved: 83-63-0288RafftsakZbwmovhjetnu (1 source)Low back pain, unspecified M54.50; Translations: [Low back pain, unspecified M54.50]Onset: 05-01-2021 Resolved: 05-01-2021 Results Test NameValueInterpretationReference RangeFacilityMLR HEMOGLOBIN A1Con 87-55-3474Kriqune [Mass/Vol]108 mg/dLNOIL BkbdtlofwhHdV3z (Bld) [Mass fraction] 5.4 %4.5 - 6.2 %NOMS HealthcareComment on above:ADA RECOMMENDED LIMIT 4.0 - 6.0 ADA THERAPEUTIC TARGET < 7.0 ACTION SUGGESTED > 7.0 CLINISYNCNOIL HealthcareXR FOOT LT MIN 3Von 97-82[place], [place] [id number] XRay Report Signed Patient: RAMIRO WILLIAM MR#: [id number] : 1970 Acct:[id number] Age/Sex: 53 / M ADM Date: 12/11/23 Loc: [facility] Attending Dr: Terry Randle D.P.M. Ordering Physician: Terry Randle D.P.M. Date of Service: 12/11/23 Procedure(s): XR foot LT min 3V Accession Number(s): [id number] cc: Terry Randle D.P.M.; Augusto Lazcano M.D. [facility] [place] [id number] Patient Name: RAMIRO WILLIAM MRN: [id number] date: 1970 Sex: M Assigned Patient Location: Current Patient Location: Accession/Order Number: [id number] Exam Date: 12/11/2023 15:12 Report Date: 12/12/2023 07:32 At the request of: TERRY RANDLE Procedure: XR foot LT min 3V PROCEDURE: [...] and posterior heel Electronically authenticated by: DALE ROWE Date: 12/12/2023 07:32 Dictated By: Dale Rowe M.D. Signed By: 12/12/23 0735 DD/ 0732 TD/TT: Boat Washer:TBHRadiology, Radiologist, - 12/12/2023 [place] [address] XRay Report Signed Patient: RAMIRO WILLIAM MR#: [id number] : 1970 Acct:[id number] Age/Sex: 53 / M ADM Date: 12/11/23 Loc: [facility] Attending Dr: Terry Randle D.P.M. Ordering Physician: Terry Randle D.P.M. Date of Service: 12/11/23 Procedure(s): XR foot LT min 3V Accession Number(s): [id number] cc: Terry Randle D.P.M.; Augusto Lazcano M.D. [address] [place] [address] Patient Name: RAMIRO WILLIAM MRN: [id number]:[id number] date: 1970 Sex: M Assigned Patient Location: Current Patient Location: Accession/Order Number: [id number] Exam Date: 12/11/2023 15:12 Report Date: 12/12/2023 07:32 At the request of: TERRY RNADLE Procedure: XR foot LT min 3V PROCEDURE: [...] and posterior heel Electronically authenticated by: DALE ROWE Date: 12/12/2023 07:32 Dictated By: Dale Rowe M.D. Signed By: 12/12/2335 DD/ TD/TT: Boat Washer: [facility] HealthcareRadiology Study observation (narrative)[facility] HealthcareXR FOOT LT MIN 3VOrdered By: Radiologist Radiology on 60-86-3905[facility] Work Phone: mr abdomen wo/w conon 67-63-4365MT abdomen wo/w con [facility] [place] [address] MRI Report Signed Patient: Ramiro William MR#: Timothy [id number] : 1970 Acct:[id number] Age/Sex: 53 / M ADM Date: 11/09/23 Loc: Room: Type: [facility] Attending Dr: Landy Torres MD Copies to: [...] Topher Lucio M.D.11/09/2023 6:31 PM Dictation Location: [place] [address] Transcribed By: [facility] 11/09/231830 Dictated By: Topher Lucio II, MD 11/09/231815 Signed By: 11/09/231830[facility] GroupXR KUBon 26-27-2358AY KUB [facility] [place] [address] XRay Report Signed Patient: Ramiro William MR#: Timothy [id number] : 1970 Acct:[id number] Age/Sex: 53 / M ADM Date: 11/09/23 Loc: Room: Type: [facility] Attending Dr: Landy Torres MD Copies to: [...] Topher Lucio M.D.11/09/2023 5:58 PM Dictation Location: [place] [address] Transcribed By: [facility] 11/09/231757 Dictated By: Topher Lucio II, MD 11/09/231754 Signed By: 11/09/23 175[facility] GroupXR ANKLE LT MIN 3Von 08-23-2023 [place] [id number] XRay Report Signed Patient: RAMIRO WILLIAM MR#: [id number] : 1970 Acct:[id number] Age/Sex: 52 / M ADM Date: 08/23/23 Loc: [facility] Attending Dr: Lela Gonzalez Ordering Physician: Lela Gonzalez Date of Service: 08/23/23 Procedure(s): XR ankle LT min 3V Accession Number(s): [id number] cc: Lela Gonzalez; Augusto Lazcano M.D. [place] [id number] Patient Name: RAMIRO WILLIAM MRN: TBH:[id number] date: 1970 Sex: M Assigned Patient Location: [facility] Current Patient Location: [facility] Accession/Order Number: [id number] Exam Date: 08/23/2023 13:23 Report Date: 08/23/2023 13:54 At the request of: LELA GONZALEZ Procedure: XR ankle LT min 3V PROCEDURE: XR ankle LT min 3V COMPARISON: 08/20/2023 HISTORY: LEFT ANKLE PAIN FINDINGS: BONES:Contour deformity of the posterior calcaneus consistent with partial resection and Achilles tendon repair. SOFT TISSUES:Posterior soft tissue swelling and heterotopic ossification EFFUSION:None visible. OTHER: Negative. XR/XR ankle LT min 3V IMPRESSION: Stable postsurgical changes from Achilles tendon repair Electronically authenticated by: DALE ROWE Date: 08/23/2023 13:54 Dictated By: Dale Rowe M.D. Signed By: 08/23/23 1350 DD/ 135 TD/TT: Boat Washer:TBHRadiology, Radiologist, - 09/19/2023 [place] [address] XRay Report Signed Patient: RAMIRO WILLIAM MR#: [id number] : 1970 Acct:[id number] Age/Sex: 52 / M ADM Date: 08/23/23 Loc: RAD Attending Dr: Lela Gonzalez Ordering Physician: Lela Gonzalez Date of Service: 08/23/23 Procedure(s): XR ankle LT min 3V Accession Number(s): [id number] cc: eLla Gonzalez; Augusto Lazcano M.D. The [place] [id number] Patient Name: RAMIRO WILLIAM MRN: [id number] date: 1970 Sex: M Assigned Patient Location: [facility] Current Patient Location: [facility] Accession/Order Number: [id number] Exam Date: 08/23/2023 13:23 Report Date: 08/23/2023 13:54 At the request of: LELA GONZALEZ Procedure: XR ankle LT min 3V PROCEDURE: XR ankle LT min 3V COMPARISON: 08/20/2023 HISTORY: LEFT ANKLE PAIN FINDINGS: BONES:Contour deformity of the posterior calcaneus consistent with partial resection and Achilles tendon repair. SOFT TISSUES:Posterior soft tissue swelling and heterotopic ossification EFFUSION:None visible. OTHER: Negative. XR/XR ankle LT min 3V IMPRESSION: Stable postsurgical changes from Achilles tendon repair Electronically authenticated by: DALE ROWE Date: 08/23/2023 13:54 Dictated By: Dale Rowe M.D. Signed By: 08/23/23 1356 DD/ 1354 TD/TT: Boat Washer: JASON HealthcareRadiology Study observation (narrative)[facility] HealthcareXR ANKLE LT MIN 3VOrdered By: Radiologist Radiology on 59-45-0867JFGQ Healthcare Work Phone: XR ANKLE LT MIN 3Von 83-88-9686Rpk [place] [phone] XRay Report Signed Patient: RAMIRO WILLIAM MR#: [id number] : 1970 Acct:[id number] Age/Sex: 52 / M ADM Date: 08/20/23 Loc: SURGOUT Attending Dr: Terry Randle D.P.M. Ordering Physician: Marlen Thao D.P.M. Date of Service: 08/20/23 Procedure(s): XR ankle LT min 3V Accession Number(s): [id number] cc: Marlen Thao D.P.M.; Augusto Lazcano M.D. [facility] [place] [address] Patient Name: RAMIRO WILLIAM MRN: [facility]:[id number] date: 1970 Sex: M Assigned Patient Location: [facility] Current Patient Location: Accession/Order Number: [id number] Exam Date: 08/20/2023 12:50 Report Date: 08/21/2023 10:52 At the request of: MARLEN THAO Procedure: XR ankle LT min 3V PROCEDURE: XR ankle LT min 3V HISTORY: Postop x-ray PACU COMPARISON: XR foot left 05/16/2023 FINDINGS: BONES:Postop resection of posterior superior margin of calcaneus for Achilles tendon repair. Small calcaneal plantar spur. SOFT TISSUES:Images were obtained to cast material which limits evaluation. EFFUSION:None visible. OTHER: Negative. XR/XR ankle LT min 3V IMPRESSION: 1. Postop Achilles tendon repair. Electronically authenticated by: CIARA CROOK Date: 08/21/2023 10:52 Dictated By: Ciara Crook M.D. Signed By: 08/21/23 1054 DD/ 1052 TD/TT: Boat Washer:CLINTHRadiology, Radiologist, MD - 08/21/2023 [place] [address] XRay Report Signed Patient: RAMIRO WILLIAM MR#: [id number] : 1970 Acct:[id number] Age/Sex: 52 / M ADM Date: 08/20/23 Loc: SURGOUT Attending Dr: Terry Randle D.P.M. Ordering Physician: Marlen Thao D.P.M. Date of Service: 08/20/23 Procedure(s): XR ankle LT min 3V Accession Number(s): [id number] cc: Marlen Thao D.P.M.; Augusto Lazcano M.D. [place] [address] Patient Name: RAMIRO WILLIAM MRN: [facility]:[id number] date: 1970 Sex: M Assigned Patient Location: [facility] Current Patient Location: Accession/Order Number: [id number] Exam Date: 08/20/2023 12:50 Report Date: 08/21/2023 10:52 At the request of: MARLEN THAO Procedure: XR ankle LT min 3V PROCEDURE: XR ankle LT min 3V HISTORY: Postop x-ray PACU COMPARISON: XR foot left 05/16/2023 FINDINGS: BONES:Postop resection of posterior superior margin of calcaneus for Achilles tendon repair. Small calcaneal plantar spur. SOFT TISSUES:Images were obtained to cast material which limits evaluation. EFFUSION:None visible. OTHER: Negative. XR/XR ankle LT min 3V IMPRESSION: 1. Postop Achilles tendon repair. Electronically authenticated by: CIARA CROOK Date: 08/21/2023 10:52 Dictated By: Ciara Crook M.D. Signed By: 08/21/231053 DD/ 105 TD/TT: Boat Washer: [facility] HealthcareRadiology Study observation (narrative)[facility] HealthcareXR ANKLE LT MIN 3VOrdered By: Radiologist Radiology on 37-93-9066[facility] Work Phone: Loh [phone]: [id number] Received: 08/21/23- 1236 Status: PALLAVI Hernandez Num: [id number] Spec Type: Surgical Subm Dr: Terry Randle,DPM, MS Tissues: A Bone Fragments - Other than Path Fracture (LT CALCANEAL SPUR) Procedures: HE, Gross/Micro L3, Decalcification Age/ Patient Sex Location Account Attending Physician Ramiro William 52/M LABELL [id number] Terry Randle DPM, MS SPEC NUM: [id number] RECD: 08/21/23 STATUS: PALLAVI HERNANDEZ NUM: [id number] EDMAR: 08/20/23 [facility] DR: Terry Randle DPM, MS ENTERED: 08/21/[address]: Yari,Lab SPEC TYPE: Surgical DEPT: KAR [...] surface of the bone is yellow-soriano, trabecular. Actuarial Science Teacher are submitted following decalcification in one cassette labeled A1. CPT Codes 17246, 16293 Specimen: [id number] Received: 08/21/23 Status: PALLAVI Hernandez Num: [id number] Spec Type: Surgical Subm Dr: Terry Randle,DPTimothy, MS Tissues: A Bone Fragments - Other than Path Fracture (LT CALCANEAL SPUR) Procedures: HE, Gross/Micro L3, Decalcification Patient: Ramiro William [id number] (Continued) Signed (signature on file) Elle Whitfield MD 08/24/[address] [place] [address] Physician GroupECG 12-LEADon 67-86[place], [place] [id number] Electrocardiograph Report Signed Patient: Ramiro William MR#: [id number] : 1970 Acct:[id number] Age/Sex: 52 / M ADM Date: 08/06/23 Loc: PST Attending Dr: Terry Randle D.P.M. Ordering Physician: Terry Randle D.P.M. Date of Service: 08/06/23 Procedure(s): ECG 12 lead Accession Number(s): [id number] cc: [facility] Test Date: 2023-08-06 Pat Name: Ramiro William Department: Room: - Gender: Male Transmission Superintendent: : 1970 Requested By: TERRY RANDLE Order Number: [id number] Reading MD: FREDERICK URIBE Measurements Intervals [place] Rate: 78 P: -5 CT: 173 QRS: 3 QRSD: 110 T: 12 QT: 395 QTc: 451 Interpretive Statements SINUS RHYTHM NONSPECIFIC T-WAVE ABNORMALITY No previous ECG available for comparison Electronically Signed On 08-07-2023 6:54:40 EST by FREDERICK URIBE Dictated By: Frederick Uribe D.O. Signed By: 08/07/23 0654 DD/ 48 TD/TT: Boat Washer:TBHRadiology, Radiologist, - 08/07/2023 [place] [address] Electrocardiograph Report Signed Patient: Ramiro William MR#: [id number] : 1970 Acct:[id number] Age/Sex: 52 / M ADM Date: 08/06/23 Loc: PST Attending Dr: Terry Randle D.P.M. Ordering Physician: Terry Randle D.P.M. Date of Service: 08/06/23 Procedure(s): ECG 12 lead Accession Number(s): [id number] cc: [facility] Test Date: 2023-08-06 Pat Name: Ramiro William Department: Room: - Gender: Male Transmission Superintendent: : 1970 Requested By: TERRY RANDLE Order Number: [id number] Reading MD: FREDERICK URIBE Measurements Intervals [place] Rate: 78 P: -5 CT: 173 QRS: 3 QRSD: 110 T: 12 QT: 395 QTc: 451 Interpretive Statements SINUS RHYTHM NONSPECIFIC T-WAVE ABNORMALITY No previous ECG available for comparison Electronically Signed On 08-07-2023 6:54:40 EST by FREDERICK URIBE Dictated By: Frederick Uribe D.O. Signed By: 08/07/23 0654 DD/ 48 TD/TT: Boat Washer: JASON Cabrera 12-LEADOrdered By: Radiologist Radiology on 09-31-6131[facility] Work Phone: ECG 12-LEADon 70-52-1645Dkufcckej Study observation (narrative)JASON ZunigaTESTOSTERONE, TOTALon 92-45-3300Iovlfvfbtbgj [Mass/Vol]685 ng/pGKjcxyy148-766Ujm [facility] CenterComment on above:Result Comment: Adult male reference interval is based on a population of healthy nonobese males (BMI <30) between 19 and 39 years old. nayeli Mix.al. JCEM 2017,102;1066-1575. PMID: [id number].Performed By: #### LIPID, BMP, LIVER, TSH #### [facility] [address] [place] [address] Dr. Jinny Delgado AUTO DIFFon 69-70-7468SYNJ #0.0 103/ulNormal0.0-0.1The [facility] Orthopedic CenterComment on above:Performed By: #### CBC #### [facility] [address] [place] [address] Dr. Jinny WhitfieldBasophils/100 WBC (Bld)0.4 %Normal0.2-2.0[facility] Comment on above:Performed By: #### CBC #### [facility] [address] [place] [address] Dr. Jinny Dickens #0.0 103/ulNormal0.0-0.7The [facility] Orthopedic CenterComment on above: Performed By: #### CBC #### [facility] [address] [place] [address] Dr. Jinny Norrisosinophils/100 WBC (Bld)0.5 %Critically low0.9-7.0The [facility]opedic CenterComment on above:Performed By: #### CBC #### [facility] [address] [place] [address] Dr. Jinny Norrisrythrocyte distribution width (RBC) [Ratio]12.8 %Aaigwq67.0-15.0 The [facility]opedic CenterComment on above:Performed By: #### CBC #### [facility] [address] [place] [address] Dr. Jinny WhitfieldHematocrit (Bld) [Volume fraction]36.5 %Critically low42.0-54.0 The [facility]opedic CenterComment on above:Performed By: #### CBC #### [facility] [address] [place] [address] Dr. Jinny WhitfieldHemoglobin (Bld) [Mass/Vol]13.3 g/dLCritically low14.0-18.0The [facility] on above:Performed By: #### CBC #### [facility] [address] [place] [address] Dr. Jinny Gillette #0.03 10e3/ulNormal0.00-0.03The [facility]opedic CenterComment on above:Performed By: #### CBC #### [facility] [address] [place] [address] Dr. Jinny Gillette %0.5 %Normal0.0-0.5The [facility]opedic CenterCommclaren central [place] on above: Performed By: #### CBC #### [facility] [address] [place] [address] Dr. Jinny Jay #1.3 103/ulNormal1.2-3.8The [facility]opedic CenterComment on above:Performed By: #### CBC #### [facility] [address] [place] [address] Dr. Jinny Cullenhocytes/100 WBC (Bld)22.3 %Vfbcdl72.5-60.0The [facility] on above:Performed By: #### CBC #### [facility] [address] [place] [address] Dr. Jinny BriggsUAL DIFF REQNONormalThe [facility]opedic CenterComment on above: Performed By: #### CBC #### [facility] [address] [place] [address] Dr. Jinny Linder (RBC) [Entitic mass]30.7 sxEqrevx98.9-34.0The [facility]opedic CenterComment on above:Performed By: #### CBC #### [facility] [address] [place] [address] Dr. Jinny Linder (RBC) [Mass/Vol]36.4 g/dLCritically high29.9-35.2The [facility]opedic CenterComment on above:Performed By: #### CBC #### [facility] [address] [place] [address] Dr. Jinny LinderV (RBC) [Entitic vol]84.3 dVBmhdnv33.0-94.0The [facility] Systemment on above:Performed By: #### CBC #### [facility] [address] [place] [address] Dr. Jinny Carreno #0.3 103/ulNormal0.3-0.8The [facility]opedic CenterComment on above:Performed By: #### CBC #### [facility] [address] [place] [address] Dr. Jinny Juaresocytes/100 WBC (Bld)5.9 %Normal1.7-12.0The [facility] Comment on above:Performed By: #### CBC #### [facility] [address] [place] [address] Dr. Jinny AcostaUT #3.9 103/ulNormal1.4-6.5The [facility]opedic CenterComment on above:Performed By: #### CBC #### [facility] [address] [place] [address] Dr. Jinny Acostautrophils/100 WBC (Bld)70.4 %Lvrebc37.0-75.0The [facility]opedic CenterComment on above:Performed By: #### CBC #### [facility] [address] [place] [address] Dr. Jinny Francolet mean volume (Bld) [Entitic vol]8.8 fLCritically low 9.5-13.5The [facility] Systemment on above:Performed By: #### CBC #### [facility] [address] [place] [address] Dr. Jinny WhitfieldPLT317 103/lgTpkkuk878-092Swj [facility] CenterComment on above: Performed By: #### CBC #### [facility] [address] [place] [address] Dr. Jinny WhitfieldRBC4.33 106/ulCritically low4.70-6.10The [facility]opedic CenterComment on above:Performed By: #### CBC #### [facility] [address] [address] [address] Jinny WhitfieldWBC5.6 103/ulNormal4.0-11.0The [facility] on above: Performed By: #### CBC #### [facility] [address] [place] [address] Dr. Jinny WhitfieldGLYCOHEMOGLOBIN A1Con 72-33-9877ZLL RECOMMENDATIONSEE BELOWDayton Osteopathic HospitalComment on above:Result Comment: ADA RECOMMENDED LIMIT 4.0 - 6.0 ADA THERAPEUTIC TARGET < 7.0 ACTION SUGGESTED > 7.0Performed By: #### A1C #### [facility] [address] [place] [address] Dr. Jinny WhitfieldGlucose [Mass/Vol]117 mg/dLNoSelect Medical Specialty Hospital - Boardman, IncComment on above:Performed By: #### A1C #### [facility] [address] [place] [address] Dr. Jinny WhitfieldHbA1c (Bld) [Mass fraction]5.7 %Normal4.5-6.2The [facility]opedic CenterComment on above:Performed By: #### A1C #### [facility] [address] [place] [address] Dr. Jinny GarciaID PROFILEon 68-55-5841RUEW-HDL RATIO NORMSEE [facility] HospitalCommclaren [facility] [place] on above:Result Comment: 3.3 - 4.4 LOW RISK 4.4 - 7.1 AVERAGE RISK 7.1 - 11.0 MODERATE RISK >11.0 HIGH RISKPerformed By: #### LIPID, BMP, LIVER, TSH #### [facility] [address] [place] [address] Dr. Jinny WhitfieldCholesterol [Mass/Vol]168 mg/dLNormal<=200The [facility] Comment on above:Performed By: #### LIPID, BMP, LIVER, TSH #### [facility] [address] [place] [address] Dr. Jinny WhitfieldCholesterol in HDL [Mass/Vol]46 mg/bWOyctzk42-06Fgy [facility] HospitalComment on above:Performed By: #### LIPID, BMP, LIVER, TSH #### [facility] [address] [address] [address] Jniny Cortesesterol in LDL [Mass/Vol]102.8 mg/dLLancaster Municipal Hospital on above:Performed By: #### LIPID, BMP, LIVER, TSH #### [facility] [address] [address] [address] Jinny Merino.total/Cholesterol in HDL [Mass ratio]3.7 {ratio} NormalBarnesville HospitalCommclaren central [place] on above:Performed By: #### LIPID, BMP, LIVER, TSH #### [facility] [address] [place] [address] [address] Jinny Ward NORMAL> or = 60 mg/dl - LOW CARDIOVASCULAR RISK <40 mg/dl - HIGH CARDIOVASCULAR RISKNoSelect Medical Specialty Hospital - [facility], IncComment on above:Performed By: #### LIPID, BMP, LIVER, TSH #### [facility] [address] [place] [address] [address] Jinny Doshi CALC NORMALSEE BELOWNoSelect Medical Specialty Hospital - Board[facility], IncComment on above:Result Comment: <100 mg/dl OPTIMAL 100 - 129 mg/dl NEAR OR ABOVE OPTIMAL 130 - 159 mg/dl BORDERLINE HIGH 160 - 189 mg/dl HIGH >190 mg/dl VERY HIGH Performed By: #### LIPID, BMP, LIVER, TSH #### [facility] [address] [place] [address] [address] Jinny WhitfieldTriglyceride [Mass/Vol]96 mg/dLNormal<=150[facility] Comment on above:Performed By: #### LIPID, BMP, LIVER, TSH #### [facility] [address] [place] [address] [address] Jinny RiggsLDL CALC19.2 mg/dLNoSelect Medical Specialty Hospital - [facility], IncComment on above: Performed By: #### LIPID, BMP, LIVER, TSH #### [facility] [address] [place] [address] [address] Jinny Gamble PROFILEon 06-22-2561Rykqfna [Mass/Vol]4.2 g/dLNormal3.4-5.0 The [facility]opedic CenterComment on above:Performed By: #### LIPID, BMP, LIVER, TSH #### [facility] [address] [place] [address] Dr. Jinny WhitfieldAlbumin/Globulin [Mass ratio]1.2 {ratio}NormalThe [facility] CenterComment on above:Performed By: #### LIPID, BMP, LIVER, TSH #### [facility] [address] [place] [address] Dr. Jinny Fleming [Catalytic activity/Vol]83 U/TVvpida80-201Vqn [facility] CenterComment on above:Performed By: #### LIPID, BMP, LIVER, TSH #### [facility] [address] [place] [address] Dr. Jinny Macias [Catalytic activity/Vol]28 U/SGrqxxu85-41Vse [facility] CenterComment on above:Performed By: #### LIPID, BMP, LIVER, TSH #### [facility] [address] [place] [address] Dr. Jinny De Santiago [Catalytic activity/Vol]24 U/BDlobyo26-94Nul [facility] Systemment on above:Performed By: #### LIPID, BMP, LIVER, TSH #### [facility] [address] [place] [address] Dr. Jinny Martinez, CONJUGATED0.1 mg/dLNormal0.0-0.2[facility] Comment on above:Performed By: #### LIPID, BMP, LIVER, TSH #### [facility] [address] [place] [address] Dr. Jinny Gomezirubin [Mass/Vol]0.4 mg/dLNormal0.2-1.0The [facility] Comment on above:Performed By: #### LIPID, BMP, LIVER, TSH #### [facility] [address] [place] [address] Dr. Jinny WhitfieldGlobulin (S) [Mass/Vol]3.4 g/dLNormalThe [facility] CenterComment on above:Performed By: #### LIPID, BMP, LIVER, TSH #### [facility] [address] [place] [address] [address] Jinny WhitfieldProtein [Mass/Vol]7.6 g/dLNormal6.4-8.2[facility] Comment on above:Performed By: #### LIPID, BMP, LIVER, TSH #### [facility] [address] [place] [address] [address] Jinny WhitfieldPROF CHEM 8 (BAS METB)on 22-29-5636Oqmpy gap [Moles/Vol]11.7 mmol/LNormalThe [facility] CenterComment on above:Performed By: #### LIPID, BMP, LIVER, TSH #### [facility] [address] [place] [address] [address] Jinny WhitfieldCalcium [Mass/Vol]8.9 mg/dLNormal8.5-10.1The [facility] Comment on above:Performed By: #### LIPID, BMP, LIVER, TSH #### [facility] [address] [place] [address] [address] Jinny WhitfieldChloride [Moles/Vol]102 mmol/PXrfmls76-114Lbm [facility] Comment on above:Performed By: #### LIPID, BMP, LIVER, TSH #### [facility] [address] [place] [address] Dr. Jinny WhitfieldCO2 [Moles/Vol]30.2 mmol/KSleebc84.0-32.0[facility] Comment on above:Performed By: #### LIPID, BMP, LIVER, TSH #### [facility] [address] [place] [address] [address] Jinny WhitfieldCreatinine [Mass/Vol]0.86 mg/dLNormal0.70-1.30The [facility] CenterComment on above:Performed By: #### LIPID, BMP, LIVER, TSH #### [facility] [address] [place] [address] Dr. Stearns ChangEGFR-AF SIERRA LEONEAN>60Normal>=60The [facility] CenterComment on above:Performed By: #### LIPID, BMP, LIVER, TSH #### [facility] [address] [place] [address] [address] Jinny NorrisGFR-NON AF SIERRA LEONEAN>60Normal>=60The [facility] CenterComment on above:Performed By: #### LIPID, BMP, LIVER, TSH #### [facility] [address] [place] [address] [address] Jinny WhitfieldGlucose [Mass/Vol]96 mg/zZGarmge33-063Efx [facility] Comment on above:Performed By: #### LIPID, BMP, LIVER, TSH #### [facility] [address] [place] [address] [address] Jinny WhitfieldPotassium [Moles/Vol]3.9 mmol/LNormal3.5-5.1[facility] Comment on above:Performed By: #### LIPID, BMP, LIVER, TSH #### [facility] [address] [place] [address] [address] Jinny WhitfieldSodium [Moles/Vol]140 mmol/WVodzch693-630Qvl [facility] Comment on above:Performed By: #### LIPID, BMP, LIVER, TSH #### [facility] [address] [place] [address] [address] Jinny WhitfieldUrea nitrogen [Mass/Vol]18.0 mg/dLNormal7.0-18.0The [facility] CenterComment on above:Performed By: #### LIPID, BMP, LIVER, TSH #### [facility] [address] [place] [address] [address] Jinny Alfonso nitrogen/Creatinine [Mass ratio]20.9 mg/mgNormalThe Crystal Clinic Orthopedic CenterComment on above:Performed By: #### LIPID, BMP, LIVER, TSH #### [facility] [address] [place] [address] Dr. Jinny Carlos 66-15-2258JAM6.701 uIU/mLNormal0.358-3.740The [facility] Orthopedic CenterComment on above:Performed By: #### LIPID, BMP, LIVER, TSH #### [facility] [address] [address] [address] Jinny WhitfieldXR HUMERUS LT MIN 2Von 07-06-0707LH HUMERUS LT MIN 2VEXAM: PLAIN FILM OF [...] for acute displaced fracture. Electronically authenticated by: MADDISON ADAIR Date: 2021-07-31 17:51Gal[facility] HospitalCOVID Quick Testingon 31-47-1221ZzuoeyBskbnhduKbmeh [employer] Other Established Visit (Neurosurgery)on 08-09-2018 Established Visit (Neurosurgery)Chief Complaint Patient is being seen for a follow-up Neurosurgical visit. 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 Battery changed in November 2016 from medtronic to Tiragiu, with initially some relief, but no longer. Pt is not interested in reprogramming. Review of Systems as above Active Problems Problems Back pain (724.5) (M54.9) Neuropathic pain of chest (353.8) (M79.2) Neuropathic pain, leg (355.8) (M79.2) Preoperative examination (V72.84) (Z01.818) Social History Problems Never a smoker Non-smoker (V49.89) (Z78.9) Allergies Medication No Known Drug Allergies Recorded By: Maddison Welsh; 08/24/2016 3:38:51 PM Current Meds Medication [...] Vital Signs Recorded: 09Aug2018 01:42PM Heart Rate79 Cvbkgsnbbxi27 Pkuwfplu656 Dckbgwyag21 Rgieee089 lb BMI Noridgzhgw50.59 BSA Calculated2.13 Physical Exam incisions well healed, [...] MD; Aug 09 2018 3:24PM EST (Author) [facility] TouchworksCoding Summary.on 51-44-9542Bmzmdi Summary.CODING DATE: 12/20/2017 FINAL [facility] STATUS: Home (Routine DC) PAYOR: Commercial Insurance ADMIT DX: REASON FOR VISIT DX: M54.6 Pain in thoracic spine FINAL DX: PRINCIPAL:G89.29 Other chronic pain SECONDARY: M54.6 Pain in thoracic spine M54.14 Radiculopathy, thoracic region 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 [facility] HospitalConsultation Noteon 84-05-9994Gjzawvkthxqa NoteHOSPITAL REGULATIONS: ALL Positive Important Negative Findings [...] time as well. Hewas subsequently [facility] where he saw Dr. Cordova replaced [...] be of benefit to t he patient. Zaheerhas tried radiofrequency ablation in the past without [...] and followup as needed.Robles Becker M.D.lkrDictated: 12/14/2017 #[id number]: 12/19/2017 #[id number]: Santos Campbell M.D.Robles Becker M.D.[facility] HospitalComment on above: Result Comment: Electronically Signed By: Rosita CAPUTO, Robles Bustamante\.br\Date and Time Signed: 12/20/17 16:22 EDTCoding Summary.on 09-35-3163Ksjwby Summary.CODING DATE: 05/22/2017 FINAL [facility] STATUS: Home (Routine DC) PAYOR: Commercial [...] Kelsea Newton Date Saved: 05/22/2017 12:25 pmNormal The Jewish HospitalMA Mamm Diag w/CAD if perf and [...] very important to your health. The current [employer] and National Comprehensive Cancer Network [...] Ky Heath M.D. Transcribed by: RAUL Technologist: [facility] Assessment: BI-RADS Category 1-Negative Recommendation: Normal interval follow-upSt. John of God HospitalUS Breast Unilateral Rt Completeon 43-74-0039JKK Coag RelTime (Bld)Exam Date/Time:05/21/2017 14:19 ESTReason for Exam:Breast painReportPLEASE REFER TO THE MAMMOGRAM REPORT. FINAL REPORT Dictated: 05/21/2017 6:26 pm Ky Heath M.D. Signed (ElectronicSignature): 05/21/2017 6:26 pm Signed by: Ky Heath M.D. Transcribed by: RAUL Technologist: [facility] Vital Signs Date TimeVital SignValuePerforming FqfmxpjcvVfekrplr42-81-9261 11:31-0400Body plaujp585.07 cmAugusto Lazcano MD Work Phone: [facility]10-31-2025 11:31-0400 Body mass index (BMI) [Ratio]33.6 kg/m2Augusto Lazcano MD Work Phone: [facility]10-31-2025 11:31-0400 Body iulcmsyjgrd58.5 [degF]Augusto Lazcano MD Work Phone: [facility]10-31-2025 11:31-0400 Body aepmue415.95 kgAugusto Lazcano MD Work Phone: [facility]10-31-2025 11:31-0400 Diastolic blood wofpnjqh63 mm[Hg]Augusto Lazcano MD Work Phone: [phone] [place], [place] 4653010-31-2025 11:31-0400 Heart rate80 /minAugusto Lazcano MD Work Phone: [phone] [place], [place] 4653010-31-2025 11:31-0400 Respiratory rate20 /minAugusto Lazcano MD Work Phone: [phone] [address]10-31-2025 11:31-0400 SaO2% (BldA) [Mass fraction]95 %Augusto Lazcano MD Work Phone: [phone]10-31-2025 11:31-0400 Systolic blood kdisysoh677 mm[Hg]Augusto Lazcano MD Work Phone: [phone]07-02-2025 13:12-0400 Body bwzufl275.8 cmAugusto Lazcano MD Work Phone: [facility] CenterRrtnyrqyqj50-90-5334 13:12-0400Body mass index (BMI) [Ratio]32.86 kg/m2Augusto Lazcano MD Work Phone: [facility] CenterZhkhrlfqsc53-96-0918 13:12-0400Body temperature 98.6 [degF]Augusto Lazcano MD Work Phone: [facility] CenterWwilhsacnt52-32-4567 13:12-0400Body vzhvoc396.87 kgAugusto Lazcano MD Work Phone: [facility] CenterFymiutvonn18-66-0814 13:12-0400Diastolic blood bxqicpdk11 mm[Hg]Augusto Lazcano MD Work Phone: [facility] CenterIxlhexqhng02-09-3907 13:12-0400Heart svuq037 /min Augusto Lazcano MD Work Phone: [facility] CenterIanwqufjzo61-53-7587 13:12-0400Respiratory rate18 /minAugusto Lazcano MD Work Phone: [facility] CenterFkmaxmzuos71-27-0464 13:12-8708MpW0% (BldA) [Mass fraction]98 %Augusto Lazcano MD Work Phone: [facility] CenterQmfjxamfvy58-42-7287 13:12-0400Systolic blood dsnssapx916 mm[Hg]Augusto Lazcano MD Work Phone: [facility] CenterHtbotipjpg52-47-5235 15:34-0400Body qouhjd254.8 cmAugusto Lazcano MD Work Phone: [facility] CenterVgvjhenamg21-39-7744 15:34-0400Body mass index (BMI) [Ratio]32.28 kg/m2Augusto Lazcano MD Work Phone: [facility] CenterImwapoenhi86-26-9400 15:34-0400Body temperature 97.5 [degF]Augusto Lazcano MD Work Phone: [facility] CenterDyfddpymyx03-54-0571 15:34-0400Body cpzzap580.06 kgAugusto Lazcano MD Work Phone: [facility] CenterNupijqqush74-35-3147 15:34-0400Diastolic blood btebmgcn35 mm[Hg]Augusto Lazcano MD Work Phone: [facility] CenterCbckzafcbv50-58-8531 15:34-0400Heart rate92 /min Augusto Lazcano MD Work Phone: [facility] CenterJufueqrnje97-32-1233 15:34-0400Respiratory rate18 /minAugusto Lazcano MD Work Phone: [facility] CenterWgcaebsbft07-26-8858 15:34-5539LiY9% (BldA) [Mass fraction]97 %Augusto Lazcano MD Work Phone: [facility] CenterLzeqrjfiyz59-56-5040 15:34-0400Systolic blood mm[Hg]Augusto Lazcano MD Work Phone: [facility] CenterEpoomjkgva81-75-3623 14:30-0500Body lpdymx314.07 cmThomas Olexa Other [employer] Other 02-07-2022 14:30-0500Body mass index (BMI) [Ratio] 31.68 kg/x9Fhggcv Olexa Other [employer] Other 02-07-2022 14:30-0500Body ettxay971.61 kgThomas Olexa Other [employer] Other 01-25-2022 10:45-0500Body rnyuic132.07 cmThomas Olexa Other [employer] Other 01-25-2022 10:45-0500Body mass index (BMI) [Ratio] 31.54 kg/b0Rrvgmc Olexa Other [employer] Other 01-25-2022 10:45-0500Body xebggg626.15 kgThomas Olexa Other [employer] Other 01-18-2022 10:30-0500Body .07 cmThomas Olexa Other [employer] Other 01-18-2022 10:30-0500Body mass index (BMI) [Ratio] 30.98 kg/d2Pjtpoz Olexa Other [employer] Other 01-18-2022 10:30-0500Body cajmmm97.34 kgThomas Olexa Other [employer] Other 10-17-2021 13:55-0400Body .07 cmPelia Horton Other [employer] Other 10-17-2021 13:55-0400Body mass index (BMI) [Ratio] 30.98 kg/a9Vsajjv Sol Other [employer] Other 10-17-2021 13:55-0400Body tocbglmsqyb36.6 [degF]Yaneth Sol Other [employer] Other 10-17-2021 13:55-0400Body qwmuob94.34 kgPajacy Sol Other [employer] Other 10-17-2021 13:55-0400Diastolic blood fxzkfobe82 mm[Hg] Yaneth Sol Other [employer] Other 10-17-2021 13:55-0400Respiratory rate18 /minYaneth Horton Other [employer] Other 10-17-2021 13:55-5582YwC7% (BldA) [Mass fraction]98 % Yaneth Sol Other [employer] Other 10-17-2021 13:55-0400Systolic blood dljckjoa983 mm[Hg] Ynaeth Sol Other [employer] Other 09-29-2021 11:15-0400Body jnomkc740.07 cmPamela Sol Other [employer] Other 09-29-2021 11:15-0400Body mass index (BMI) [Ratio] 30.41 kg/z5Srusvl Sol Other [employer] Other 09-29-2021 11:15-0400Body boyvfsymjfu57.3 [degF]Yaneth Sol Other [employer] Other 09-29-2021 11:15-0400Body rvdiyn62.52 kgPajacy Horton Other [facility] [employer] Other 09-29-2021 11:15-0400Respiratory rate18 /minPajacy Horton Other [facility] [employer] Other 09-29-2021 11:15-3724DbJ4% (BldA) [Mass fraction]97 % Yaneth Horton Other [facility] [employer] Other Encounters Encounter DateEncounter TypeCare ProviderFacilityStart: 05-15-2025 End: 90-37-1462zqfrcaraprIjjy Naderer MD Work Phone: -[facility] ClydeStart: 05-15-2025 End: 25-13-5077Uiwrqcl encounter procedureAugusto Lazcano MD-[facility] Work Phone: Start: 03-10-2025 End: 08-18-7319RxlmgwHzki Naderer MD Work Phone: noms CWM FMComment on above:Other chest painStart: 03-08-2025 End: 69-36-6171GfzobqXtya Naderer MD Work Phone: [facility] CWM FMComment on above:Musculoskeletal chest pain Start: 01-14-2025 End: 41-49-7818Hivfem flowsAna Lazcano MD Work Phone: [facility] CWM FMStart: 01-14-2025 End: 66-15-8802Xmxhlo Nolberto Lazcano MD Work Phone: [facility] CWM FMStart: 01-14-2025 End: 49-23-3699vliozyevmeYOAT NADERERNot AvailableStart: 01-14-2025 End: 51-99-6211Bpwzcr outpatient visit 25 minutesAugusto Lazcano MD Work Phone: [facility] CWM FMComment on above:Benign essential hypertension (Primary Dx); Lumbar strain, initial encounter; Musculoskeletal chest pain; Bilateral leg edema; Chronic gastric ulcer without hemorrhage and without perforation; SOB (shortness of breath)Start: 12-25-2024 End: 29-72-1872ZfdvpdTfcw Naderer MD Work Phone: [facility] CWM FMComment on above:Other chest painStart: 12-02-2024 End: 40-55-7643JsczqfMyoc Naderer MD Work Phone: [facility] CWM FMComment on above:Allergic rhinitis due to pollen; Low back painMed RefillStart: 11-25-2024 End: 25-43-7990UbzyegLysx Naderer MD Work Phone: [facility] CWM FMComment on above:Other chest painStart: 11-03-2024 End: 57-53-4844Udclwx-up encounterAugusto Lazcano MD Work Phone: [facility] CWM FMStart: 10-31-2024 End: 03-13-7766Izsnfampo Result EncounterAugusto Lazcano MD Work Phone: NOOB External Department UnsolicitedStart: 10-31-2024 End: 27-16-0715Nehrzoxcw Result EncounterAugusto Lazcano MD Work Phone: NOWO External Department UnsolicitedStart: 10-28-2024 End: 22-38-4047SvlnztEsgh Naderer MD Work Phone: [facility] CWM FMComment on above:Other chest painStart: 10-07-2024 End: 04-67-4871nymxzbvbjtPUYW NADERERNot AvailableStart: 09-13-2024 End: 65-38-4430PrdmfsByrd Naderer MD Work Phone: [facility] CWM FMComment on above:Shortness of breathStart: 09-01-2024 End: 20-61-6809MshpqeOber Naderer MD Work Phone: [facility] CWM FMComment on above:Musculoskeletal chest pain; Other chest painStart: 08-14-2024 End: 04-43-4836Fcnrgclwj Burke Lazcano MD Work Phone: [facility] CWM FMComment on above:Med RefillStart: 08-05-2024 End: 67-52-2719GvgpepNamq Naderer MD Work Phone: [facility] CWM FMComment on above:Other chest painStart: 07-03-2024 End: 78-06-5800DmyoyiXaxt Naderer MD Work Phone: [facility] CWM FMComment on above:Other chest painStart: 06-05-2024 End: 51-61-0278EeveevAiiv Naderer MD Work Phone: [facility] CWM FMComment on above:Erectile dysfunction due to arterial insufficiency (Primary Dx); Other chest painStart: 05-08-2024 End: 60-99-1522XxxszkTwss Naderer MD Work Phone: [facility] CWM FMComment on above:Other chest painStart: 04-14-2024 End: 56-33-7660QlyhmwKapl Naderer MD Work Phone: [facility] CWM FMComment on above:Shortness of breathStart: 04-11-2024 End: 78-88-3472PnrmmeMoqn Naderer MD Work Phone: [facility] CWM FMComment on above:Other chest painStart: 04-01-2024 End: 53-68-7276Ixxxpc outpatient visit 25 minutesAugusto Lazcano MD Work Phone: [facility] CWM FMComment on above:Benign essential hypertension (CMS/HCC) (Primary Dx); Musculoskeletal chest pain; Bilateral leg edema; Chronic gastric ulcer without hemorrhage and without perforation; DDD (degenerative disc disease), lumbar; Porphyria, unspecified porphyria type (CMS/HCC)Start: 04-01-2024 End: 40-53-6578sbtrxrxncvLCWI NADERERNot AvailableStart: 04-01-2024 End: 92-33-5260Gfgtrbrangel Lazcano MD Work Phone: [facility] CWM FMStart: 04-01-2024 End: 84-86-2325Mqxeuj Nolberto Lazcnao MD Work Phone: [facility] CWM FMStart: 03-14-2024 End: 90-51-4397RauuqmUbao Naderer MD Work Phone: [facility] CWM FMComment on above:Other chest painStart: 12-12-2023 End: 32-22-3231Yapjfdbzh Result EncounterGeneric External Data ProviderNOMS External Department UnsolicitedStart: 12-12-2023 End: 27-92-6953Pvbvreqvx Result EncounterGeneric External Data ProviderNOMS External Department UnsolicitedStart: 11-09-2023 End: 38-81-4250uowfqljvqiYsyxwnl ChawlaFacility:[facility] Centertart: 11-09-2023 End: 29-50-3796yfpxowzsonNH Marc Naderer Work Phone: [facility] Work Phone: Start: 11-09-2023 End: 78-81-7796Siffzgt encounter procedureMD Augusto Lazcano Work Phone: [facility]-MRI Main [facility] [place] Work Phone: Start: 37-41-9121Snuuqmr encounter procedureAugusto Lazcano MD Work Phone: noms HealthcareStart: 08-23-2023 End: 67-84-2034Chsgyaypi Result EncounterGeneric External Data ProviderNOMS External Department UnsolicitedStart: 08-23-2023 End: 87-92-6632Haoynawmm Result EncounterGeneric External Data ProviderNOMS External Department UnsolicitedStart: 08-21-2023 End: 20-21-8238Hbjztufvd Result EncounterGeneric External Data ProviderNOMS External Department UnsolicitedStart: 08-21-2023 End: 73-25-7147Mqgqqoykf Result EncounterGeneric External Data ProviderNOMS External Department UnsolicitedStart: 08-20-2023 End: 34-30-1921lkepxirzxuBhgfq [facility] HospitalFacility:[facility] CenterStart: 08-20-2023 End: 66-50-7952rcueqvkxxrADH Terry B[facility] Work Phone: [facility] Work Phone: Start: 08-20-2023 End: 20-26-8469Fubygshm ReferredDPTimothy Mosquera [facility] Hospitalharish Work Phone: [facility]-LAB [facility] HospStart: 08-06-2023 End: 13-75-5166Oghhnmwtm Result EncounterGeneric External Data ProviderNOMS External Department UnsolicitedStart: 08-06-2023 End: 66-78-3744Gseeqggia Result EncounterGeneric External Data ProviderNOMS External Department UnsolicitedStart: 99-35-2859Hselsmekh for general adult medical examination without abnormal findingsDR AUGUSTO LANDzaheer [facility] Centertart: 07-22-2022 End: 67-32-6553tklpvvbvokJO AUGUSTO Sharpe NADERERFacility:A7Wmpvz: 07-22-2022 End: 56-74-9365Zsmqtochy for general adult medical examination without abnormal findingsDR AUGUSTO Sharpe NADERERFacility:Z7Vnnsa: 08-22-2021 End: 08-57-5060ugmtoljbdzStltnh Olexa Other [employer] Other Start: 92-19-1846Uwkcnc follow up visit related to original pxThomas OlexaFPG [facility] OrthopedicsStart: 08-11-2021 End: 72-75-9979adflvlazbrLslheq Olexa Other [employer] Other Start: 35-72-3401Tnmvexcpd encounterThomas OlexaFPG [facility]opedicsStart: 08-09-2021 End: 19-30-4565tvmmbuhjzxYrlkso Olexa Other [employer] Other Start: 44-10-7208Kajjhvmee for other preprocedural examinationThomas OlexaFPG [facility] OrthopedicsStart: 45-93-0974Wwqslc outpatient visit 25 minutesThomas OlexaFPG [place] OrthopedicsStart: 08-02-2021 End: 32-22-6895ipnjabsrycPloeul Olexa Other [employer] Other Start: 10-86-1960Akrime outpatient new 45 minutes Gianluca OlexaFPG [place] OrthopedicsStart: 07-31-2021 End: 47-27-7788tfcvtcmfpcJI AUGUSTO Sharpe NADERERFacility:A9Jtszr: 38-25-0662Kqkqhj outpatient visit 15 minutesPamela DymondFPG Urgent Care ClydeStart: 04-13-2021 (URG) Urgent Care VisitPamela DymondFPG [facility]gent Care ClydeStart: 08-09-2018 Patient encounter procedureJEFRANK HOFFMAN ISMAELFacility:[facility] Start: 93-06-8622Axfvdvnjc for other preprocedural examinationRADHA BOOM [facility] CenterStart: 12-14-2017 End: 55-89-8428SbmgdwemfiRvlwmk D GoldnerFacility:[facility] CENTERtart: 05-21-2017 End: 87-94-8728GatxjrrzadSKPX~[id number] UNKNOWN NADERERFacility:[facility] Procedures DateProcedureProcedure DetailPerforming ClinicianStart: 64-45-4959SKQ HEMOGLOBIN L2DYjhrAugusto Lazcano MD Work Phone: Start: 97-34-8919SQ FOOT LT MIN 3VGeneric External Data ProviderStart: 22-80-1459Rldisnsbii radiography of abdomenMD Augusto Lazcano Work Phone: Start: 16-35-7694XBU of abdomen with contrastMD Augusto Lazcano Work Phone: Start: 01-59-1824KD ANKLE LT MIN 3VGeneric External Data ProviderStart: 45-47-9635OL ANKLE LT MIN 3VGeneric External Data Provider Start: 21-92-7309TSV 12-LEADGeneric External Data ProviderStart: 46-35-4942ZKH screeningDR AUGUSTO AGUILERAomment on above:Performed By: #### PSASC #### [facility] [address] [place] [address] Dr. Stearns ChangStart: 29-72-8764WiylsvkxzimZrxg Jaleesa CAPUTO Work Phone: Plan of Treatment DateCare ActivityDetailAuthorStart: 75-79-0324Mknrgkrjm for malignant neoplasm of colonNOMS HealthcareStart: 07-23-2025 End: 12-82-0099Fweushf encounter zjathplty40/08/2026 11:15 AM EST Office Visit [facility] CWTimothy FM [address] [place] [address] Augusto Lazcano MD [address] [place] [address] NOMS CW FMStart: 24-18-8813UXBOA-19 Vaccine ( season)COVID-19 Vaccine ( season)[facility]OM[facility] HealthcareStart: 17-58-4315Xbgwtducl vaccinationInfluenza Vaccine (#1)[facility] HealthcareStart: 01-13-2025 End: 55-41-7058Fsqxiox encounter kffywdzpo85/01/2025 3:00 PM EDT Office Visit [facility] [address] [place] [address] Augusto Lazcano MD [address] [place] [address] [facility] CWM FMStart: 10-07-2024 End: 42-38-8863Ubkxwhj encounter fejsegxwt07/25/2025 3:00 PM EDT Office Visit [facility] [address] [place] [address] Augusto Lazcano MD [address] [place] [address] NOMS M FMStart: 04-01-2024 End: 28-89-7022Teqdwsz encounter procedureNOMS M FMComment on above:Arrived Start: 08-50-3263Osetynzdl vaccinationInfluenza Vaccine (#1)[facility] Start: 97-77-3801Weqaahboh B Vaccines (1 of 3 - 19+ 3-dose series)Hepatitis B Vaccines (1 of 3 - 19+ 3-dose series)NOM HealthcareStart: 09-25-1978 DTaP/Tdap/Td Vaccines (1 - Tdap)DTaP/Tdap/Td Vaccines (1 - Tdap)[facility] Start: 98-64-1310WML Vaccines (1 of 1 - Standard series)MMR Vaccines (1 of 1 - Standard series)NOM HealthcareStart: 69-46-5952Xwkcciqnv for malignant neoplasm of colonNOMS HealthcareXR Chest 2 [facility] Immunizations Immunization DateImmunizationNotesCare DmdrpvrhGvnonrki39-92-3949khxvxfjtx virus vaccine, unspecified formulationAugusto Lazcano MD Work Phone: NOCox Walnut LawnTynpdxoigr03-68-3722tozilltgh virus vaccine, unspecified formulationAugusto Lazcano MD Work Phone: [facility] CenterPaipiaeybj90-38-2533ZVSCB-13 mRNA, Comirnaty (Pfizer)DPM Terry Randle Work Phone: [facility]10-17-2021Toradol per 15 mgPajacy Horton Other [place] [employer] Other [id number]-60 mRNA, Comirnaty (Pfizer)DPTimothy Randle Work Phone: [facility]02-23-2021COVID-19 mRNA, Comirnaty (Pfizer)DPTimothy Randle Work Phone: [facility] Payers DatePayer CategoryPayerPolicy [id number] Cross Blue Shield [id number] BCBS [id number] 2023-[facility] [phone] [address] [place] [id number] 3htby187-k667-5395-5311-923v28v584ym80-55-3865CipywfrDDC735K3404225-22-3252 [id number] 2.0.1.902197.3.579.2.356 [id number] 2.840.1.083059.3.579.2.86356-05-8368Mbxhdev7388981 2.0.1.795590.3.579.2.37954-10-4412Whxghcm03940929 2.0.1.580710.3.579.2.565848-51-6426Rgumaui6540904 2.0.1.720233.3.579.2.195123-61-0743Jprpitq4613085 2.840.1.028679.3.579.2.706906-07-0266Skyk Cross Blue QhabycU2R269R81348 2..0.9.988091.07374490-70-0187PdljdxtBQSA86915008Xkuiond93603422 2.16.840.1.826030.3.579.2.563Dqihdnf68852979 2..840.1.718822.3.579.2.531 Social History DateTypeDetailFacilityStart: 04-01-2024 End: 32-75-6553Guu Assigned At [facility] [employer] Other Start: 08-11-2021 End: 32-11-2232Dbywobv smoking status NHISNever smoked tobacco (finding) [facility] Centertart: 82-84-0872Pcc Assigned At [facility]emMalOhio State University [facility] Medical Centertart: 04-01-2024 End: 09-89-5205Rnwfcul of Social functionNOIL HealthcareStart: 21-99-6736Yiv assigned at [facility] medical centerNot on fileACADIA HEALTHCARE HealthcareSexMale (finding)[facility] CenterTobacco smoking status NHISTobacco smoking consumption unknownACADIA HEALTHCARE HealthcareStart: 43-69-6164UjjCiiyDHJE Healthcare Medical Equipment Procedure CodeEquipment CodeEquipment Original TextEquipment IdentifierDates Repair, tendonOrthopaedic bone screw, bioabsorbable [id number] FDAStart: 08-11-2021 Clinical Notes 04-13-2021 to 03-10-2025 Note Date & BifkYamoCihlango17-15-1732 Telephone encounter Note* Telephone Encounter - MARIKA DECKER - 03/10/2025 10:45 AM EDT Patient called states pharmacy has immediate release morphine back in stock, would like to go back on the immediate release. clm [facility] Oxjryykgzn31-97-7010 Miscellaneous Notes* Telephone Encounter - MARIKA DECKER - 03/10/2025 10:45 AM EDT Patient called states pharmacy has immediate release morphine back in stock, would like to go back on the immediate release. clm documented in this encounterCapital Region Medical CenterOxlvaxdxrb10-84-7774 History of Present illness Narrative* Augusto Lazcano [...] note were not included. Subjective Patient ID: Ramiro William is a 54 y.o. male who [...] (Deltasone) 50 MG tablet documented in this [facility]05-28-2025 Telephone encounter Note* Telephone Encounter - Augusto Lazcano MD - 12/10/2024 1:13 PM EDT Script sent. If no better over next few days will need seen. MAN [facility] CenterOaikmsyowg67-31-3218 Miscellaneous Notes* Telephone Encounter - Augusto Lazcano MD - 12/10/2024 1:13 PM EDT Script sent. If no better over next few days will need seen. MAN * Telephone Encounter - Marika Decker MA - 12/10/2024 1:06 PM EDT Patient called is having a lot of ear pain, feels like there is fluid sloshing in ear, would like an antibiotic called in to pharmacy. clm documented in this [facility]05-28-2025 Telephone encounter Note* Telephone Encounter - Marika Decker MA - 12/10/2024 1:06 PM EDT Patient called is having a lot of ear pain, feels like there is fluid sloshing in ear, would like an antibiotic called in to pharmacy. clm [facility] [id number] Telephone encounter Note* Telephone Encounter - MARIKA DECKER 08/14/2024 8:26 AM EST [facility] called requesting a prescription for meclizine, and lidoderm patches. clm [facility] [id number] Miscellaneous Notes* Telephone Encounter - MARIKA DECKER - 08/14/2024 8:26 AM EST [facility] called requesting a prescription for meclizine, and lidoderm patches. clm documented in this encounterCap[facility] [id number] History of Present illness Narrative* [place] Lazcano MD - 04/01/2024 3:57 PM EDTAssociated Problem(s): Porphyria ([facility]) Follow with hematology. * Augusto Lazcano MD [...] note were not included. Subjective Patient ID: Ramiro William is a 53 y.o. male who [...] (CMS/HCC) Follow with hematology. documented in this encounterCapital [facility] [id number] NotePROCEDURE: XR HIP LT 2 3V WO PELVIS HISTORY: Pain of left hip joint ; chronic COMPARISON: None. FINDINGS: BONES:No fracture, acute abnormality, or significant arthropathy. SOFT TISSUES:No visible soft tissue swelling. EFFUSION:None visible. OTHER: Negative. IMPRESSION: 1. No acute bone abnormality. 2. No significant degenerative joint disease. Electronically authenticated by: CIARA CROOK Date: 2022-07-22 19:07[facility]02-07-2022 Evaluation note* Encounter Date Diagnosis Assessment Notes Treatment Notes Treatment Clinical Notes Aug, Other specified postprocedural s tates (ICD-10 - Z98.890) Aug,upture of left distal biceps tendon, subsequent encounter (ICD-10 - S46.212D) Radiographs reviewed with patient and . Instructed on passive flexion/extension of the elbow, as well as pronation/supination. Avoid strenuous use. Continue use of the splint for activities. Callwith questions/concerns. [facility] Other 01-27-2022 Evaluation note* Encounter Date Diagnosis Assessment Notes Treatment Notes Treatment Clinical Notes Jul, Other specified postprocedural s tates (ICD-10 - Z98.890) [facility] Other 01-25-2022 Evaluation note* Encounter Date Diagnosis [...] work activity. Jul,re-op exam (ICD-10 - Z01.818) [facility] Other 01-18-2022 Evaluation note* Encounter Date Diagnosis [...] 3 months post op. Discussed potential for alf weakness due to this injury. Assuming MRI [...] months before returning to heavy work activity. [facility] Other 10-17-2021 Evaluation note* Encounter Date Diagnosis [...] G89.29) Apr,OtherLow back pain material was printed [facility] Other 09-29-2021 Evaluation note* Encounter Date Diagnosis [...] Patient care instructions given in writting by [facility] document. [facility] Other Evaluation noteNo assessment information available [facility] Work Phone: Evaluation note* Diagnosis Annual [...] Other chest pain documented in this encounter [facility] HealthcareEvaluation note* Diagnosis Annual physical exam- Primary [...] Other chest pain documented in this encounter [facility] Healthcare[facility]* Diagnosis Benign essential hypertension (CMS/HCC)- [...] Primary Routine general medical examination at a [facility] care facility Benign essential hypertension Essential [...] Primary Routine general medical examination at a [facility] Benign essential hypertension Essential [...] Primary Routine general medical examination at a [facility] care [facility] Benign essential hypertension Essential [...] Primary Routine general medical examination at a [facility] care facility Benign essential hypertension Essential [...] Other chest pain documented in this encounter [facility] HealthcareEvaluation note* Diagnosis Annual physical exam- Primary [...] Other chest pain documented in this encounter [facility] HealthcareEvaluation note* Diagnosis Annual physical exam- Primary [...] Shortness of breath documented in this encounter [facility] HealthcareEvaluation note* Diagnosis Onset Date Resolution Status Admit Date Musculoskeletal chest pain acuteOctober 2024 11:13amSOB (shortness of breath)acuteOctober 2024 11:13am [facility] Work Phone: History general Narrative - Reported* Type Description Date Medical History History of chronic back pain Medical HistoryHyperlipidemiaMedical HistoryHypertensionMedical HistoryBenign prostatic hypertrophyMedical HistoryMVASurgical Historynerve implants in back Surgical Historydeviated septum repairSurgical HistorycholecystectomySurgical HistorycolonoscopySurgical HistorycystoscopyHospitalization [id number] Hospitalization Historysee above surgical history [facility] Other History general Narrative - Reported* Type Description Date Medical History History of chronic back pain Medical HistoryHyperlipidemiaMedical HistoryHypertensionMedical HistoryBenign prostatic hypertrophyMedical HistoryMVA f1Ifquxign Historynerve implants in back Surgical Historydeviated septum repairSurgical HistorycholecystectomySurgical HistorycolonoscopySurgical HistorycystoscopyHospitalization [id number] Hospitalization Historysee above surgical history [facility] Other History general Narrative - Reported* Type Description Date Medical History History of chronic back pain Medical HistoryHyperlipidemiaMedical HistoryHypertensionMedical HistoryBenign prostatic hypertrophyMedical HistoryMVA [id number] Historynerve implants in back Surgical Historydeviated septum repairSurgical HistorycholecystectomySurgical HistorycolonoscopySurgical HistorycystoscopySurgical Historyleft distal biceps repair07/2021Hospitalization [id number] Historysee above surgical history [facility] Other Reason for referral (narrative)No reason for referral information availableFort [facility] Work Phone: Summary Purpose Family History Relationship Condition Age [...] sisterHeart murmurUnknownNot SpecifiedPorphyriaUnknownbrotherPorphyriaUnknown fatherDeceasedUnknownHeart diseaseUnknownHistory of strokeUnknown Relationship Condition Age at Onset Recorded Date/T day father Cerebrovascular accident (CVA) Unknown Type 2 diabetes mellitusUnknownHistory of heart surgeryUnknownHypertension UnknownRheumatic heart diseaseUnknownRheumatic fever in pediatric patientUnknown sisterHeart murmurUnknownmotherPorphyriaUnknownbrotherPorphyriaUnknownfather DeceasedUnknownHeart diseaseUnknownHistory of strokeUnknown Advance Directives Advance Directive Response Recorded Date/ Time Advance Directives No August 02, 2021 11:01am Advance Directive Response Recorded Date/ Time Advance Directives No August 02, 2021 12:01pm Chief Complaint and Reason for Visit Chief Complaint Admit Date oxygen levels drop low on and off Octobe r 2024 11:13am Reason for Visit Admit Date Musculoskeletal chest pain May 15, 2025 11:13am SOB (shortness of breath) May 15, 2025 11:13am Additional Source Comments (unrecognized sect ion and content) No Status Records FoundNo Status Records FoundNo Status Records FoundNo Status Records FoundNo Status Records FoundNo Status Records Found INFORMATION SOURCE (unrecogn ized section and content) DATE CREATED AUTHOR 01/01/2018 [facility] DATE CREATED AUTHOR AUTHOR'S ORGANIZ ATION 08/21/2018 [employer] DATE CREATED AUTHOR AUTHOR'S ORGANIZ ATION 09/03/2018 [facility] DATE CREATED AUTHOR AUTHOR'S ORGANIZ ATION 07/27/2022 [facility] DATE CREATED AUTHOR AUTHOR'S ORGANIZ ATION 11/17/2023 [facility] DATE CREATED AUTHOR AUTHOR'S ORGANIZ ATION 01/16/2025 [facility] EPIC REASON FOR VISIT (unrecogniz ed section and content) ReasonOnset DateCommentsMed [id number] DateCommentsMed Refill 4ReasonCommentsFollow-up6m Lump under left armReasonOnset DateComments Med Kuqbpo344ReasonOnset DateCommentsMed Esspse1004/11/2024easonComments Med RefillReasonOnset DateCommentsMed Zxahvz8007/03/2024easonOnset DateComments Med Fguuzf7808/05/2024ReasonOnset DateCommentsMed Aamyki6108/14/2024ReasonOnset Date CommentsMed Mulbxu1309/01/2024ReasonOnset DateCommentsMed Wtsgep6809/13/2024Reason Onset DateCommentsMed Lyndij2110/28/2024ReasonOnset DateCommentsMed Refill 11/25/2024ReasonOnset DateCommentsMed Dgjfig9712/02/2024ReasonOnset DateComments Med Jfoejg0912/25/2024ReasonCommentsFollow-upKidney pain on going for 2 daysReason Onset DateCommentsMed Fdtxwo9703/08/2025 Care Teams (unrecognized sec tion and content) Team Status: Inactive Member Role Status Dates Terry Randle DPM MS Attending Provider Active Start: August 20, 2023 End: August 20, 2023 Team Status: Active Member Role Status Dates uAgusto Lazcano MD Primary Care Provider Active Team Status: Inactive Member Role Status Dates Landy Torres MD Attending Provider Active St art: November 09, 2023 End: November 09, 2023Mar Michelle Lazcano Care ProviderActiveStart: November 09, 2023 End: November 09, 2023Team MemberRelationshipSpecialtyStart DateEnd Date Augusto Lazcano MD [address] [place] [address] PCP - GeneralFamily Medicine08/29/23 Augusto Lazcano MD [address] [place] [address] PCP - [employer]11/14/23Team MemberRelationshipSpecialtyStart DateEnd Date Augusto Lazcano MD [address] [place] [address] PCP - GeneralFamily Medicine08/29/23 Augusto Lazcano MD [address] [place] [address] PCP - [employer]11/14/23Team MemberRelationshipSpecialtyStart DateEnd Date Augusto Lazcano MD [address] [place] [address] PCP - GeneralFamily Medicine08/29/23 Augusto Lazcano MD [address] [place] [address] PCP - [employer]11/14/23Team MemberRelationshipSpecialtyStart DateEnd Date Augusto Lazcano MD [address] [place] [address] PCP - GeneralFamily Medicine08/29/23 Augusto Lazcano MD [address] [place] [address] PCP - [employer]11/14/23Team MemberRelationshipSpecialtyStart DateEnd Date Augusto Lazcano MD [address] [place] [address] PCP - GeneralFamily Medicine08/29/23 Augusto Lazcano MD [address] [place] [address] PCP - [employer]11/14/23Team MemberRelationshipSpecialtyStart DateEnd Date Augusto Lazcano MD [address] [place] [address] PCP - GeneralFamily Medicine08/29/23 Augusto Lazcano MD [address] [place] [address] PCP - [employer]11/14/23Team MemberRelationshipSpecialtyStart DateEnd Date Augusto Lazcano MD [address] [place] [address] PCP - Generalmi Medicine08/29/23 Augusto Lazcano MD [address] [place] [address] PCP - [employer]11/14/23Team MemberRelationshipSpecialtyStart DateEnd Date Augusto Lazcano MD [address] [place] [address] PCP - Generalmi Medicine08/29/23 Augusto Lazcano MD [address] [place] [address] PCP - [employer]11/14/23Team MemberRelationshipSpecialtyStart DateEnd Date Augusto Lazcano MD [address] [place] [address] PCP - Generalmi Medicine08/29/23 Augusto Lazcano MD [address] [place] [address] PCP - [employer]11/14/23Team MemberRelationshipSpecialtyStart DateEnd Date Augusto Lazcano MD [address] [place] [address] PCP - GeneralFamily Medicine08/29/23Team MemberRelationshipSpecialtyStart DateEnd Date Augusto Lazcano MD [address] [place] [address] PCP - GeneralFamily Medicine08/29/23Team MemberRelationshipSpecialtyStart DateEnd Date Augusto Lazcano MD [address] [place] [address] PCP - GeneralFamily Medicine08/29/23Team MemberRelationshipSpecialtyStart DateEnd Date Augusto Lazcano MD [address] [place] [address] PCP - GeneralFamily Medicine08/29/23Team MemberRelationshipSpecialtyStart DateEnd Date Augusto Lazcano MD [address] [place] [address] PCP - GeneralFamily Medicine08/29/23Team MemberRelationshipSpecialtyStart DateEnd Date Augusto Lazcano MD [address] [place] [address] PCP - GeneralFamily Medicine08/29/23Team MemberRelationshipSpecialtyStart DateEnd Date Augusto Lazcano MD [address] [place] [address] [facility] - [facility]08/29/23Team MemberRelationshipSpecialtyStart DateEnd Date Augusto Lazcano MD [address] [place] [address] PCP - General acute hospital Medicine08/29/23Team MemberRelationshipSpecialtyStart DateEnd Date Augusto Lazcano MD [address] [place] [address] PCP - [facility]08/29/23 Team Status: Active Member Role/Relationship Status Dates Augusto Lazcano MD Primary Care Provider Active Team Status: Inactive Member Role/Relationship Status Dates Augusto Lazcano MD Primary Care Provider Active S tart: May 15, 2025 End: May 15, 2025Mar KAYKAY Lazcanottending ProviderActiveStart: May 15, 2025 End: May 15, 2025Team MemberRelationshipSpecialtyStart DateEnd Date Augusto Lazcano MD [facility] Augusto Lazcano MD PCP - General acute hospital Medicine08/29/23 Augusto Lazcano MD [address] [place] [address] PCP - [employer]Team MemberRelationshipSpecialtyStart Date End Date Augusto Lazcano MD PCP - [facility]08/29/23 Augusto Lazcano MD [address] [place] [address] PCP - [facility]11/13/2410 Goals (unrecognized section and content) Goals may [...] BE BASED ON THE PRIMARY CLINICAL RECORDS. [facility] [employer] [facility]. provides no warranty or guarantee of the accuracy or completeness of information in this document.
== END 2025-05-19 15:01 | disposition home or self-care (01) ==
LOC: CARD 15:01
PROVIDERS: PCP Family Medicine; Visit Provider Family Medicine
DX: R06.02 Shortness of breath (principal); R07.89 Other chest pain
CPT/HCPCS: 36415; 85018; 94010; 94726; 94729